=== PATIENT | male | born 1940 | race Caucasian/White ===

== ENCOUNTER 2017-07-29 11:53 | Inpatient (IN) | payer MEDICARE ==
[~2017-07-29] VITALS: Ht 170.2 cm; Wt 78.5 kg
[~2017-07-29 11:53] MED LIST: AMLO5TAB22 PO; LISI40TA PO; ZOCO40TA PO
[2017-07-29 14:00] VITALS: BP 204/100; PULSE 63; RESP 19; TEMP 97.5; O2SAT 97
[2017-07-29] MEDS ORDERED: SODIUM CHLOR 0.9% 1000 ML INJ 1,000 ML IV PRN (14:23)
[2017-07-29] MEDS ORDERED: SODIUM CHLOR 0.9% 1000 ML INJ 1,000 ML OTHER PRN ×2 (14:23)
[2017-07-29] MEDS ORDERED: GELATIN 12 MM/7 MM FOAM TOP PRN (14:30)
[2017-07-29] MEDS ORDERED: NITROGLYCERIN 0.4 MG SL 25 TABS/BTL SL PRN (14:30)
[2017-07-29] MEDS ORDERED: HEPARIN SODIUM - IV 10,000 UNITS/10 ML VIAL IV FLUSH PRN (14:30)
[2017-07-29] MEDS ORDERED: ONDANSETRON HCL 4 MG/2 ML VIAL IV PUSH PRN (14:30)
[2017-07-29] MEDS ORDERED: ALBUMIN 25% INJ 100 ML IV PRN (14:30)
[2017-07-29] MEDS ORDERED: cloNIDine HCL 0.1 MG TAB PO PRN ×2 (14:30→19:00)
[2017-07-29] MEDS ORDERED: ACETAMINOPHEN 325 MG TAB PO PRN (14:30)
[2017-07-29] MEDS ORDERED: SODIUM CHLORIDE 0.9% FLUSH 10 ML FLUSH IV FLUSH PRN ×3 (14:30→16:30)
[2017-07-29] MEDS ORDERED: diphenhydrAMINE HCL 25 MG CAP PO PRN (14:30)
--- NOTE | 2017-07-29 14:45 | HHI.HP ---
HPI Service CP Hospitalists Primary Care Physician Unknown Admission Diagnosis ESRD Chief Complaint: "need HD" Travel History International Travel<30 Days: No Contact w/Intl Traveler <30 Da: No Traveled to Known Affected Are: No History of Present Illness This is a 76-year-old male patient who has a mendes kidney status post left nephrectomy approximately 12 years ago secondary to renal cell carcinoma. Patient also has past medical history which includes hyperlipidemia, hypertension and chronic kidney disease now stage V. Patient reports that he had been doing well since his nephrectomy until September when he suddenly developed BLE edema. Patient saw his PCP for to have worsening GFR and lesion/ mass in his remaining kidney. Patient has been seen by [facility] and Dr. Benítez outpatient. Per request of nephrology patient direct admitted to the hospital due to urgent need to start hemodialysis. Patient reports he plans to follow up with [facility] for possible ablation of renal lesion August 16. Patient denies SOB, chest pain, fevers, chills, N/V/D/C. Review of Systems Constitutional: DENIES: Fatigue, Fever, Chills Respiratory: DENIES: Cough, Sputum production, Shortness of breath Cardiovascular: COMPLAINS OF: Lower Extremity Edema, DENIES: Chest pain, Palpitations, Dyspnea on Exertion Gastrointestinal: DENIES: Abdominal pain, Constipation, Diarrhea, Nausea, Vomiting Neurologic: DENIES: Headache, Localized weakness, Speech Problems Psychiatric: DENIES: Anxiety, Confusion, Depression Past Family Social History Past Medical History renal cell carcinoma with nephrectomy 2006, hyperlipidemia, hypertension and chronic kidney disease stage V Past Surgical History Nephrectomy 2006 Lumbar laminectomy Reported Medications Hydrocodone-Acetaminophen 5-325 mg Tab 1 Tab PO BID PRN Ambien (Zolpidem Tartrate) 10 Mg Tab 10 Mg PO HS PRN Doxazosin (Doxazosin Mesylate) 2 Mg Tab 8 Mg PO HS Cymbalta DR (Duloxetine HCl) 30 Mg Capdr 30 Mg PO DAILY Vitamin D3 (Cholecalciferol) 50,000 Unit Cap 50,000 Units PO 2XWEEK Lasix (Furosemide) 40 Mg Tab 40 Mg PO TID Metoprolol Tartrate 25 Mg Tab 25 Mg PO HS Metolazone 5 Mg Tab 5 Mg PO DAILY Lisinopril 10 Mg Tab 10 Mg PO BID Simvastatin 40 Mg Tab 40 Mg PO HS Allergies: Coded Allergies: No Known Allergies (Unverified Allergy, Unknown, 6/7/18) Family History Family medical history includes lung cancer and lupus Social History Denies EtOH use Tobacco use smokes cigars Denies EtOH use Physical Exam Vital Signs Vital Signs Date Time Temp Pulse Resp B/P (MAP) Pulse Ox O2 Delivery O2 Flow Rate FiO2 07/29/17 14:00 97.5 63 19 204/100 (134) 97 Physical Exam GENERAL: This is a well-nourished, well-developed patient, in no apparent distress. SKIN: No rashes, ecchymoses or lesions. Cool and dry. HEAD: Atraumatic. Normocephalic. No temporal or scalp tenderness. EYES: Extraocular motions intact. No scleral icterus. No injection or drainage. CARDIOVASCULAR: Regular rate and rhythm RESPIRATORY: Clear to auscultation. Breath sounds equal bilaterally. GASTROINTESTINAL: Abdomen soft, non-tender, nondistended. MUSCULOSKELETAL: Extremities without clubbing, cyanosis, or edema. No joint tenderness, effusion, or edema noted. No calf tenderness. Negative Homans sign bilaterally. NEUROLOGICAL: Awake and alert. No focal deficits. Motor and sensory grossly within normal limits. Five out of 5 muscle strength in all muscle groups. Normal speech. Imaging Last Impressions Catheter Placement X-Ray 07/29/17 0000 Signed Impressions: CONCLUSION: Uncomplicated PermaCath placement as above. Caprini VTE Risk Assessment Caprini VTE Risk Assessment: Mod/High Risk (score >= 2) Caprini Risk Assessment Model Point Value = 1 Point Value = 2 Point Value = 3 Point Value = 5 Age 41-60 Minor surgery BMI > 25 kg/m2 Swollen legs Varicose veins or History of unexplained or recurrent spontaneous Oral contraceptives or hormone replacement Sepsis (< 1 month) Serious lung disease, including pneumonia (< 1 month) Abnormal pulmonary function Acute myocardial infarction Congestive heart failure (< 1 month) History of inflammatory bowel disease Medical patient at bed rest Age 61-74 Arthroscopic surgery Major open surgery (> 45 min) Laparoscopic surgery (> 45 min) Malignancy Confined to bed (> 72 hours) Immobilizing plaster cast Central venous access Age >= 75 History of VTE Family history of VTE Factor V Leiden Prothrombin [id number] Lupus anticoagulant Anticardiolipin antibodies Elevated serum homocysteine Heparin-induced thrombocytopenia Other congenital or acquired thrombophilia Stroke (< 1 month) Elective arthroplasty Hip, pelvis, or leg fracture Acute spinal cord injury (< 1 month) Prophylaxis Regimen Total Risk Factor Score Risk Level Prophylaxis Regimen 0-1 Low Early ambulation 2 Moderate Order ONE of the following: *Sequential Compression Device (SCD) *Heparin 5000 units SQ BID 3-4 Higher Order ONE of the following medications: *Heparin 5000 units SQ TID *Enoxaparin/Lovenox 40 mg SQ daily (WT < 150 kg, CrCl > 30 mL/min) *Enoxaparin/Lovenox 30 mg SQ daily (WT < 150 kg, CrCl > 10-29 mL/min) *Enoxaparin/Lovenox 30 mg SQ BID (WT < 150 kg, CrCl > 30 mL/min) AND/OR *Sequential Compression Device (SCD) 5 or more Highest Order ONE of the following medications: *Heparin 5000 units SQ TID (Preferred with Epidurals) *Enoxaparin/Lovenox 40 mg SQ daily (WT < 150 kg, CrCl > 30 mL/min) *Enoxaparin/Lovenox 30 mg SQ daily (WT < 150 kg, CrCl > 10-29 mL/min) *Enoxaparin/Lovenox 30 mg SQ BID (WT < 150 kg, CrCl > 30 mL/min) AND *Sequential Compression Device (SCD) Assessment and Plan Problem List: (1) ESRD needing dialysis ICD Codes: N18.6 - End stage renal disease; Z99.2 - Dependence on renal dialysis Plan: This is a 76-year-old male patient who has a mendes kidney status post left nephrectomy approximately 12 years ago secondary to renal cell carcinoma. Patient also has past medical history which includes hyperlipidemia , hypertension and chronic kidney disease now stage V. Patient reports that he had been doing well since his nephrectomy until September when he suddenly developed BLE edema. Patient saw his PCP for to have worsening GFR and lesion/ mass in his remaining kidney. Patient has been seen by [facility] and Dr. Benítez outpatient. Per request of nephrology patient direct admitted to the hospital due to urgent need to start hemodialysis. Patient reports he plans to follow up with [facility] for possible ablation of renal lesion August 16. Consultation placed to interventional radiology for permacath placement Consultation placed to nephrology Hemodialysis per nephrology renal mass/lesion, Patient reports he plans to follow up with [facility] for possible ablation of renal lesion August 16. Continue patient's home metolazone 5 mg daily Nephrology has ordered IV Lasix as well (2) HTN (hypertension) ICD Codes: I10 - Essential (primary) hypertension Plan: Continue patient's home Doxazosin 4 mg 2 tablets at night, lisinopril 10 mg p.o. twice daily, metoprolol 25 mg 1 tablet nightly Add clonidine as needed for hypertension (3) Hyperlipidemia ICD Codes: E78.5 - Hyperlipidemia, unspecified Plan: Continue patient's home simvastatin 40 mg 1 tablet daily Assessment and Plan Patient examined. Assessment and plan formulated with Adali Oliver PA-C. I agree with the above. Physician Certification 2 Midnight Certification Type: Admission for Inpatient Services Order for Inpatient Services The services are ordered in accordance with Medicare regulations or non- Medicare payer requirements, as applicable. In the case of services not specified as inpatient-only, they are appropriately provided as inpatient services in accordance with the 2-midnight benchmark. Estimated LOS (days): 3 days is the estimated time the patient will need to remain in the hospital, assuming treatment plan goals are met and no additional complications. Post-Hospital Plan: Not yet determined Adali Oliver Jul 29, 2017 14:45 Ken Parra DO Aug 01, 2017 22:59
[2017-07-29] MEDS ORDERED: DOXA1TAB35 PO (14:48)
[2017-07-29] MEDS ORDERED: HYDR-3516 PO (14:48)
[2017-07-29] MEDS ORDERED: METO5TAB3 PO (14:48)
[2017-07-29] MEDS ORDERED: FURO1TAB60 PO (14:48)
[2017-07-29] MEDS ORDERED: AMBI10TA PO (14:48)
[2017-07-29] MEDS ORDERED: CYMB30CA PO (14:48)
[2017-07-29] MEDS ORDERED: METO25TA3 PO (14:48)
[2017-07-29] MEDS ORDERED: LISI10TA3 PO (14:48)
[2017-07-29] MEDS ORDERED: SIMV40TA PO (14:48)
[2017-07-29] MEDS ORDERED: CHOL1CAP34 PO (14:48)
[2017-07-29 14:50] LABS: AUTOMATED NEUTROPHIL # 4.2 TH/MM3 (1.8-7.7); BASOPHIL # 0.1 TH/MM3 (0-0.2); BASOPHIL % 1.2 % (0.0-2.0); EOSINOPHIL # 0.1 TH/MM3 (0-0.4); EOSINOPHIL % 1.6 % (0.0-4.0); LYMPH % 23.8 % (9.0-44.0); LYMPHOCYTE # 1.5 TH/MM3 (1.0-4.8); MEAN CELL VOLUME 90.4 FL (80.0-100.0); MEAN CORPUSCULAR HEMOGLOBIN 31.1 PG (27.0-34.0); MEAN CORPUSCULAR HGB CONC 34.4 % (32.0-36.0); MEAN PLATELET VOLUME 7.1 FL (7.0-11.0); MONO % 7.9 % (0.0-8.0); MONOCYTE # 0.5 TH/MM3 (0-0.9); NEUT % 65.5 % (16.0-70.0); PLATELET COUNT 230 TH/MM3 (150-450); RED BLOOD COUNT 3.54 MIL/MM3 (4.50-5.90); WHITE BLOOD COUNT 6.4 TH/MM3 (4.0-11.0)
--- NOTE | 2017-07-29 14:55 | PD.CONS ---
HPI Consult Requested By Reason for Consult CKD stage V with need to initiate dialysis for uremia and fluid overload. Primary Care Physician Unknown History of Present Illness This patient is a very pleasant 76-year-old male who is being followed by a another volunteer services director i.e. Dr. Camilo in [place] previously. Apparently the patient has a history of a previous renal cell carcinoma with a left nephrectomy back in 2010. Subsequently developed CKD stage III and was relatively stable until last year when he developed increasing edema and worsening azotemia. By history he had a protein creatinine ratio of about 14 g. Renal biopsy was deferred because of the presence of a solitary kidney. It appears that he did receive therapy with prednisone empirically with no improvement. Subsequently was seen at the [facility] in [place] for a second opinion. According to the patient renal ultrasound revealed a suspicious right sided neoplasia which was also present and a subsequent MRI scan. Lesion said to be 2 cm. Patient is scheduled to follow-up with an oncologist at the [facility] August 16. According to the patient consultation will be undertaken between oncology and radiology as well as nephrology regarding how to proceed. Cryotherapy versus nephrectomy. In the interim the patient has been developing increasing generalized weakness, anorexia, fatigue, pickups and persistent worsening generalized edema. Noted to have had a serum creatinine level of 4.27 with an estimated GFR of June 25, 2017. Subsequent labs indicate a creatinine of 4.57 with an estimated GFR of July 16, 2017. The patient was seen in my office on July 27, 2017. According to the patient [facility] was recommending the initiation of dialysis during his last visit at their institution but the patient refused wanting to proceed locally. He has moved to this area and presented to establish with my practice. After discussion in the office we discussed indications for, alternatives to as well as risks associated with dialysis and the patient wishes to proceed with hemodialysis and hemodialysis PermCath placement. Review of Systems Constitutional: COMPLAINS OF: Fatigue, Weight gain, Change in appetite, DENIES : Diaphoretic episodes, Fever, Weight loss, Chills, Dizziness, Night Sweats Respiratory: DENIES: Apneas, Cough, Snoring, Wheezing, Hemoptysis, Sputum production, Shortness of breath Cardiovascular: COMPLAINS OF: Lower Extremity Edema, DENIES: Chest pain, Palpitations, Syncope, Dyspnea on Exertion, PND, Orthopnea, Claudication Gastrointestinal: COMPLAINS OF: Nausea, DENIES: Abdominal pain, Black stools, Bloody stools, Constipation, Diarrhea, Vomiting, Difficulty Swallowing, Anorexia Past Family Social History Allergies: Coded Allergies: No Known Allergies (Unverified Allergy, Unknown, 07/29/17) Past Medical History Solitary kidney. Lesion in remaining right kidney suspicious for recurrence of renal cell carcinoma. Options being discussed at the [facility]. Hypertension. Nephrotic range proteinuria. Associated with generalized edema. Previously treated with steroids with no improvement. Biopsy deferred secondary to solitary kidney. CKD stage V. Past Surgical History History of left nephrectomy 2010 for renal cell carcinoma. Reported Medications Reported Meds & Active Scripts Active Reported Amlodipine Besylate 5 mg (Amlodipine Besylate) 5 Mg Tab 1 Tab PO DAILY Prinivil 40 mg (Lisinopril) 40 Mg Tab 1 Tab PO DAILY Zocor 40 mg (Simvastatin) 40 Mg Tab 1 Tab PO HS Active Ordered Medications Current Medications Sodium Chloride 1,000 ml @ 0 mls/hr Q0M PRN OTHER For Prime & Rinse Back; Start 07/29/17 at 14:23 Heparin Sodium (Porcine) (Heparin Inj) 8,000 units UNSCH PRN IV FLUSH WITH DIALYSIS; Start 07/29/17 at 14:30 Sodium Chloride 1,000 ml @ 200 mls/hr Q5H PRN IV WITH DIALYSIS; Start 07/29/17 at 14:23 Sodium Chloride 1,000 ml @ 0 mls/hr Q0M PRN OTHER WITH DIALYSIS; Start 07/29/17 at 14:23 Albumin Human 100 ml @ 60 mls/hr UNSCH PRN IV WITH DIALYSIS; Start 07/29/17 at 14:30 Sodium Chloride (NS Flush) 5 ml UNSCH PRN IV FLUSH WITH DIALYSIS; Start at 14:30 Heparin Sodium (Porcine) (Heparin Inj) UNSCH PRN .XX WITH DIALYSIS; Start 07/29 at 14:30 Gentamicin Sulfate (Gentamicin Inj) 20 mg UNSCH PRN OTHER WITH DIALYSIS; Start 07/29/17 at 14:30 Ondansetron HCl (Zofran Inj) 4 mg UNSCH PRN IV PUSH WITH DIALYSIS; Start at 14:30 Acetaminophen (Tylenol) 650 mg UNSCH PRN PO for headach, pain, temp > 101F; Start 07/29/17 at 14:30 Diphenhydramine HCl (Benadryl) 25 mg UNSCH PRN PO for hives/itching/anaphylaxis ; Start 07/29/17 at 14:30 Nitroglycerin (Nitrostat Sl) 0.4 mg UNSCH PRN SL CHEST PAIN; Start 07/29/17 at 14:30 Clonidine (Catapres) 0.1 mg UNSCH PRN PO for BP > 180/100 X 2 readings; Start 07/29/17 at 14:30 Gelatin (Gelfoam 12 Mm/7 Mm Top) 1 foam UNSCH PRN TOP SEE LABEL COMMENTS; Start 07/29/17 at 14:30 Sodium Chloride (NS Flush) 5 ml UNSCH PRN IV FLUSH WITH DIALYSIS; Start at 14:30 Family History Mother is alive and well at 94. Father . Etiology? Social History History of occasional tobacco use. No history of illicit drug use. Physical Exam Vital Signs Vital Signs Date Time Temp Pulse Resp B/P (MAP) Pulse Ox O2 Delivery O2 Flow Rate FiO2 07/29/17 14:00 97.5 63 19 204/100 (134) 97 Physical Exam GENERAL: Pleasant male who appears somewhat younger than his stated age. SKIN: Warm and dry. HEAD: Normocephalic. EYES: No scleral icterus. No injection or drainage. NECK: Supple, trachea midline. No JVD or lymphadenopathy. CARDIOVASCULAR: Regular rate and rhythm without murmurs, gallops, or rubs. RESPIRATORY: Breath sounds equal bilaterally. No accessory muscle use. Diminished air entry in the lung bases. GASTROINTESTINAL: Abdomen soft, non-tender, nondistended. MUSCULOSKELETAL: No cyanosis, 2+ pitting edema of the feet, legs, thighs, hips. 1-2+ pitting edema of the hands, forearms. 1+ pitting edema lower arms. BACK: Nontender without obvious deformity. No CVA tenderness. Laboratory Laboratory Tests Test 07/29/17 14:30 Assessment and Plan Problem List: (1) CKD (chronic kidney disease) stage 5, GFR less than 15 ml/min ICD Codes: N18.5 - Chronic kidney disease, stage 5 Status: Chronic Plan: Patient now presents with refractory edema as well as severe azotemia with uremic symptomatology. Hemodialysis will be initiated as also recommended by the [facility] in [place] to improve his uremic symptoms and volume status. Patient has no dialysis access in place at this time. Consultation will be placed to radiology for placement of a hemodialysis PermCath. Patient will subsequently be further counseled regarding dialytic options available to him if chronic dialysis required. Patient has been counseled regarding indications for, alternatives to and risks associated with dialysis and wishes to proceed. Uncertain of potential for recovery of renal function. Nephrotic syndrome can be associated with potentially reversible severe azotemia in this case superimposed on chronic kidney disease. One wonders if the patient's nephrotic syndrome may be related to recurrence of his renal cell cancer if confirmed. Successful treatment of same may improve his nephrotic syndrome if this is the case but remains to be determined as discussed with the patient. Medication should be adjusted for the patient's estimated GFR which is below 15 when indicated. Avoid gadolinium. (2) Nephrotic syndrome ICD Codes: N04.9 - Nephrotic syndrome with unspecified morphologic changes Status: Chronic Plan: According to the patient [facility] may be considering a renal biopsy at the time of tumor ablation if possible. Definitive decision regarding management however of his renal lesion not yet confirmed. (3) Anasarca associated with disorder of kidney ICD Codes: N04.9 - Nephrotic syndrome with unspecified morphologic changes Plan: Fluid removal as tolerated with dialysis. Also add furosemide (4) Renal neoplasm ICD Codes: D49.519 - Neoplasm of unspecified behavior of unspecified kidney Status: Chronic Plan: Management per [facility]. 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
[2017-07-29] MEDS ORDERED: VANCOMYCIN INJ 1,000 MG in SODIUM CHLOR 0.9% 250 ML INJ 250 ML IV SCH (15:00)
[2017-07-29] MEDS ORDERED: ceFAZolin 2 GM PREMIX 50 ML IV SCH (15:00)
[2017-07-29] MEDS ORDERED: NON-FORMULARY DRUG (Cholecalciferol (Vitamin D3) 50,000 UNITS) PO SCH (15:30)
[2017-07-29] MEDS ORDERED: ZOLPIDEM TARTRATE 10 MG TAB PO PRN (15:30)
[2017-07-29] MEDS ORDERED: MIDAZOLAM HCL 2 MG/2 ML VIAL ONE (15:40)
[2017-07-29] MEDS ORDERED: LIDOCAINE 1%/EPINEPHrine 1:100,000 SOLN 20 ML VIAL ONE (15:46)
[2017-07-29] MEDS ORDERED: HEPARIN SODIUM - IV 2,000 UNITS/2 ML VIAL IV FLUSH PRN (16:30)
--- NOTE | 2017-07-29 17:04 | RADRPT ---
EXAM DATE: 07/29/2017 4:29 PM EDT AGE/SEX: 76 years / Male INDICATIONS: Patient with a history of renal disease, needs dialysis. CLINICAL DATA: This is the patient's initial encounter. Patient reports that signs and symptoms have been present for 1 day and indicates a pain score of 0/10. MEDICAL/SURGICAL HISTORY: . Solitary kidneyLesion in remaining right kidney suspicious for recu rrence of renal cell carcinoma. HTN Nephrotic range proteinuria CKD stage V . Left Nephrectomy COMPARISON: No prior exams available for comparison. FLUORO TIME (min): 0.24 IMAGE SERIES: 1 ACCESS SITE: SEDATION TIME (min): 30 MEDICATION(S): 3mg midazolam (Versed) IV 150mcg fentanyl (Sublimaze) IV Vancomycin within 2 hrs of procedure, Ancef (or alternative) within 1 hr of procedure. DEVICE(S): 23CM ROSE PERMCATH . . PROCEDURE: 1. Ultrasound-guided venipuncture. 2. PermaCath placement. 3. Conscious sedation with continuous EKG and oximetry monitoring. The risks, benefits and alternatives to the procedure were explained and verbal and written consent w as obtained. The site was prepped in sterile fashion. Full sterile technique was used, including ca p, mask, sterile gloves and gown and a large sterile sheet. Hand hygiene and 2% chlorhexidine and/or betadine/alcohol prep was utilized per protocol for cutaneous antisepsis. Sterile gel and sterile p robe cover were utilized for ultrasound guidance. The skin and subcutaneous tissues were infiltrated with local anesthetic solution. With ultrasound and fluoroscopic guidance a dermatotomy was created over the prescribed vein. A micr opuncture set was used to access the targeted vein and serial dilatation was performed to accept the prescribed length catheter. A subcutaneous tunnel was created in a retrograde fashion the catheter w as pulled through the tunnel. The catheter was flushed and assembled and locked with heparin. The c atheter was sutured in place. Conscious sedation was performed with the prescribed dosages and duration as above in the presence of an independent trained radiology nurse to assist in the monitoring of the patient. EKG and oximetry remained stable throughout the procedure. The patient tolerated the procedure well and there were n o complications. The patient was sent to post anesthesia recovery in stable condition. CONCLUSION: Uncomplicated PermaCath placement as above. Electronically signed by: Shaheed Nolasco MD 07/29/2017 5:02 PM EDT
[2017-07-29] MEDS: GENTAMICIN SULFATE 20 MG/2 ML VIAL OTHER PRN (18:04)
[2017-07-29] MEDS: HEPARIN SODIUM - IV 10,000 UNITS/10 ML VIAL PRN (18:04)
[2017-07-29] MEDS ORDERED: hydrALAZINE HCL 10 MG TAB PO PRN (19:00)
[2017-07-29 20:00] VITALS: BP 170/86; PULSE 68; RESP 16; TEMP 98; O2SAT 97
[2017-07-29] MEDS ORDERED: NIFEdipine 60 MG SUSTAINED RELEASE TAB PO SCH (21:00)
[2017-07-29 21:12] LABS: ALBUMIN 1.3 GM/DL (3.4-5.0); BICARBONATE 22.4 MEQ/L (21.0-32.0); CREATININE 3.78 MG/DL (0.60-1.30); PHOSPHORUS 5.2 MG/DL (2.5-4.9)
[2017-07-29 21:22] LABS: CALCIUM 7.4 MG/DL (8.5-10.1)
[2017-07-29] MEDS: PRAVASTATIN SOD 80 MG TAB PO SCH (21:54)
[2017-07-29] MEDS: ACETAMINOPHEN/HYDROcodone 325 MG/5 MG TAB PO PRN (21:54)
[2017-07-29] MEDS: DOXAZOSIN MESYLATE 4 MG TAB PO SCH (21:54)
[2017-07-29] MEDS: METOPROLOL TARTRATE 25 MG TAB PO SCH (21:54)
[2017-07-29] MEDS: LISINOPRIL 10 MG TAB PO SCH (21:54)
[2017-07-29] MEDS ORDERED: CALCIUM CARBONATE 500 MG CHEWABLE TAB PO SCH (22:00)
[2017-07-29] MEDS: ZOLPIDEM TARTRATE 10 MG TAB PO PRN (23:01)
[2017-07-30] VITALS (8 sets, daily range): BP systolic 105–156; BP diastolic 58–90; PULSE 55–73; RESP 16–20; TEMP 97.4–98.2; O2SAT 92–97
[2017-07-30 06:54] LABS: CALCIUM 7.4 MG/DL (8.5-10.1); CREATININE 4.32 MG/DL (0.60-1.30)
[2017-07-30 07:20] LABS: CALCIUM-PROTEIN CORRECTED 8.8 MG/DL (8.5-10.1); TOTAL PROTEIN 4.6 GM/DL (6.4-8.2)
--- NOTE | 2017-07-30 12:37 | HHI.PR ---
Subjective Remarks Patient offers no new concerns edema with some improvement asking to go home Objective Vitals Vital Signs Date Time Temp Pulse Resp B/P (MAP) Pulse Ox O2 Delivery O2 Flow Rate FiO2 07/30/17 08:06 Room Air 07/30/17 08:00 97.5 55 20 149/67 (94) 97 07/30/17 04:00 97.9 64 20 105/58 (74) 93 07/30/17 00:00 98.2 62 20 156/77 (103) 92 07/29/17 22:00 Room Air 07/29/17 20:00 98.0 68 16 170/86 (114) 97 07/29/17 14:00 97.5 63 19 204/100 (134) 97 Result Diagram: 07/29/17 1430 07/30/17 0530 Other Results Laboratory Tests Test 07/29/17 14:30 07/29/17 20:42 07/30/17 05:30 White Blood Count 6.4 TH/MM3 Red Blood Count 3.54 MIL/MM3 Hemoglobin 11.0 GM/DL Hematocrit 32.0 % Mean Corpuscular Volume 90.4 FL Mean Corpuscular Hemoglobin 31.1 PG Mean Corpuscular Hemoglobin Concent 34.4 % Red Cell Distribution Width 15.0 % Platelet Count 230 TH/MM3 Mean Platelet Volume 7.1 FL Neutrophils (%) (Auto) 65.5 % Lymphocytes (%) (Auto) 23.8 % Monocytes (%) (Auto) 7.9 % Eosinophils (%) (Auto) 1.6 % Basophils (%) (Auto) 1.2 % Neutrophils # (Auto) 4.2 TH/MM3 Lymphocytes # (Auto) 1.5 TH/MM3 Monocytes # (Auto) 0.5 TH/MM3 Eosinophils # (Auto) 0.1 TH/MM3 Basophils # (Auto) 0.1 TH/MM3 CBC Comment DIFF FINAL Differential Comment Prothrombin Time 10.0 SEC Prothromb Time International Ratio 1.0 RATIO Blood Urea Nitrogen 57 MG/DL 58 MG/DL Creatinine 3.78 MG/DL 4.32 MG/DL Random Glucose 102 MG/DL 85 MG/DL Albumin 1.3 GM/DL Calcium Level 7.4 MG/DL 7.4 MG/DL Phosphorus Level 5.2 MG/DL Sodium Level 141 MEQ/L 141 MEQ/L Potassium Level 3.7 MEQ/L 4.0 MEQ/L Chloride Level 104 MEQ/L 106 MEQ/L Carbon Dioxide Level 22.4 MEQ/L 23.0 MEQ/L Anion Gap 15 MEQ/L 12 MEQ/L Estimat Glomerular Filtration Rate 16 ML/MIN 13 ML/MIN Hepatitis A IgM Antibody NONREACTIVE Hepatitis B Surface Antigen NONREACTIVE Hepatitis B Core IgM Antibody NONREACTIVE Hepatitis C IgG Antibody NONREACTIVE Total Protein 4.6 GM/DL Protein Corrected Calcium 8.8 MG/DL 25-Hydroxy Vitamin D Total 6.6 ng/ML Parathyroid Hormone (Intact) 280.3 PG/ML Imaging Last Impressions Catheter Placement X-Ray 07/29/17 0000 Signed Impressions: CONCLUSION: Uncomplicated PermaCath placement as above. Objective Remarks GENERAL: This is a well-nourished, well-developed patient, in no apparent distress. CARDIOVASCULAR: Regular rate and rhythm RESPIRATORY: Clear to auscultation. Breath sounds equal bilaterally. GASTROINTESTINAL: Abdomen soft, non-tender, nondistended. Normal active bowel sounds MUSCULOSKELETAL: Extremities without clubbing, cyanosis, or edema. NEURO: Alert & Oriented x4 to person, place, time, situation. Moves all ext x4 A/P Problem List: (1) ESRD needing dialysis ICD Codes: N18.6 - End stage renal disease; Z99.2 - Dependence on renal dialysis Plan: This is a 76-year-old male patient who has a mendes kidney status post left nephrectomy approximately 12 years ago secondary to renal cell carcinoma. Patient also has past medical history which includes hyperlipidemia , hypertension and chronic kidney disease now stage V. Patient reports that he had been doing well since his nephrectomy until September when he suddenly developed BLE edema. Patient saw his PCP for to have worsening GFR and lesion/ mass in his remaining kidney. Patient has been seen by [facility] and Dr. Benítez outpatient. Per request of nephrology patient direct admitted to the hospital due to urgent need to start hemodialysis. Patient reports he plans to follow up with [facility] for possible ablation of renal lesion August 16. S/P permacath placement 07/29/17 by IR Consultation placed to nephrology, patient sees Dr. Benítez outpatient Hemodialysis per nephrology renal mass/lesion, Patient reports he plans to follow up with [facility] for possible ablation of renal lesion August 16. Continue patient's home metolazone 5 mg daily Nephrology has ordered IV Lasix as well Patient having second HD today further management per nephrology (2) HTN (hypertension) ICD Codes: I10 - Essential (primary) hypertension Plan: BP improving Continue patient's home Doxazosin 4 mg 2 tablets at night, lisinopril 10 mg p.o. twice daily, metoprolol 25 mg 1 tablet nightly Add clonidine as needed for hypertension (3) Hyperlipidemia ICD Codes: E78.5 - Hyperlipidemia, unspecified Plan: Continue patient's home simvastatin 40 mg 1 tablet daily Assessment and Plan Patient examined. Assessment and plan formulated with Adali Oliver PA-C. I agree with the above. Adali Oliver Jul 30, 2017 12:37 Ken Parra DO Aug 01, 2017 22:58
[2017-07-30] MEDS: LISINOPRIL 10 MG TAB PO SCH ×2 (13:11→20:32)
[2017-07-30] MEDS: FUROSEMIDE 40 MG/4 ML VIAL IV PUSH SCH ×2 (13:11→18:30)
[2017-07-30] MEDS: DULoxetine HCl DR 30 MG CAP PO SCH (13:11)
[2017-07-30] MEDS: METOLAZONE 5 MG TAB PO SCH (13:12)
--- NOTE | 2017-07-30 14:50 | HHI.NPPN ---
Subjective History of Present Illness This patient is a very pleasant 76-year-old male who is being followed by a another director of environmental services i.e. Dr. Camilo in [place] previously. Apparently the patient has a history of a previous renal cell carcinoma with a left nephrectomy back in 2010. Subsequently developed CKD stage III and was relatively stable until last year when he developed increasing edema and worsening azotemia. By history he had a protein creatinine ratio of about 14 g. Renal biopsy was deferred because of the presence of a solitary kidney. It appears that he did receive therapy with prednisone empirically with no improvement. Subsequently was seen at the [facility] in [place] for a second opinion. According to the patient renal ultrasound revealed a suspicious right sided neoplasia which was also present and a subsequent MRI scan. Lesion said to be 2 cm. Patient is scheduled to follow-up with an oncologist at the [facility] August 16. According to the patient consultation will be undertaken between oncology and radiology as well as nephrology regarding how to proceed. Cryotherapy versus nephrectomy. In the interim the patient has been developing increasing generalized weakness, anorexia, fatigue, pickups and persistent worsening generalized edema. Noted to have had a serum creatinine level of 4.27 with an estimated GFR of June 25, 2017. Subsequent labs indicate a creatinine of 4.57 with an estimated GFR of July 16, 2017. The patient was seen in my office on July 27, 2017. According to the patient [facility] was recommending the initiation of dialysis during his last visit at their institution but the patient refused wanting to proceed locally. He has moved to this area and presented to establish with my practice. Interval History Patient indicating that he is feeling clinically improved today. Objective Data Data Vital Signs Date Time Temp Pulse Resp B/P (MAP) Pulse Ox O2 Delivery O2 Flow Rate FiO2 07/30/17 13:44 96 21 07/30/17 13:03 97.4 73 20 155/73 (100) 96 07/30/17 08:06 Room Air 07/30/17 08:00 97.5 55 20 149/67 (94) 97 07/30/17 04:00 97.9 64 20 105/58 (74) 93 07/30/17 00:00 98.2 62 20 156/77 (103) 92 07/29/17 22:00 Room Air 07/29/17 20:00 98.0 68 16 170/86 (114) 97 -: 07/29/17 1430 07/30/17 0530 Imaging Last 48 hours Impressions Catheter Placement X-Ray 07/29/17 0000 Signed Impressions: CONCLUSION: Uncomplicated PermaCath placement as above. Physical Exam General Appearance: No Acute Distress, Comfortable Eyes Eye Exam: Sclera White Pulmonary Resp Exam: Clear Bilaterally, Breath Sounds Equal, No Distress, Decreased Bases Cardiology CV Exam: Regular, Normal Sinus Rhythm Gastrointestinal/Abdomen GI Exam: Soft, Non-Tender Integumentary Skin Exam: Normal Turgor Extremeties Extremities Exam: Moderate Edema (2+ pitting edema involving his hands and forearms.2-3+ pitting edema of the feet extending to the knees bilaterally. 1+ pitting edema thighs.) Assessment/Plan Discussed Condition With: Patient, Spouse Problem List: (1) CKD (chronic kidney disease) stage 5, GFR less than 15 ml/min ICD Codes: N18.5 - Chronic kidney disease, stage 5 Status: Chronic Plan: Patient has tolerated 2 dialysis sessions however he still has significant edema involving upper and lower extremities. We will proceed with a third dialysis session tomorrow prior to discharge. Subsequently patient will start hemodialysis as an outpatient Wednesday and Wednesday. Patient advised that he needs to be at the dialysis facility at 5: 30 in the morning and he is agreeable. If needed extra dialysis sessions can be done as an outpatient to improve his volume status as discussed with him. Patient was advised of the need to keep his hemodialysis PermCath dry at all times. To contact me should he develop fever or chills which may be indicative of a line infection. Uncertain of potential for recovery of renal function. Nephrotic syndrome can be associated with potentially reversible severe azotemia in this case superimposed on chronic kidney disease. One wonders if the patient's nephrotic syndrome may be related to recurrence of his renal cell cancer if confirmed. Successful treatment of same may improve his nephrotic syndrome if this is the case but remains to be determined as discussed with the patient. Medication should be adjusted for the patient's estimated GFR which is below 15 when indicated. Avoid gadolinium. (2) Nephrotic syndrome ICD Codes: N04.9 - Nephrotic syndrome with unspecified morphologic changes Status: Chronic Plan: According to the patient [facility] may be considering a renal biopsy at the time of tumor ablation if possible. Definitive decision regarding management however of his renal lesion not yet confirmed. (3) Anasarca associated with disorder of kidney ICD Codes: N04.9 - Nephrotic syndrome with unspecified morphologic changes Plan: Fluid removal as tolerated with dialysis. Also add furosemide (4) Renal neoplasm ICD Codes: D49.519 - Neoplasm of unspecified behavior of unspecified kidney Status: Chronic Plan: Management per [facility]. 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
[2017-07-30] MEDS: METOPROLOL TARTRATE 25 MG TAB PO SCH (20:32)
[2017-07-30] MEDS: PRAVASTATIN SOD 80 MG TAB PO SCH (20:32)
[2017-07-30] MEDS: ZOLPIDEM TARTRATE 10 MG TAB PO PRN (20:32)
[2017-07-30] MEDS: DOXAZOSIN MESYLATE 4 MG TAB PO SCH (20:32)
[2017-07-30] MEDS: ACETAMINOPHEN/HYDROcodone 325 MG/5 MG TAB PO PRN (20:38)
[2017-07-31] VITALS: BP 112/54; PULSE 61; RESP 16; TEMP 98; O2SAT 93
[2017-07-31 04:00] VITALS: BP 129/71; PULSE 68; RESP 16; TEMP 98; O2SAT 93
[2017-07-31 08:00] VITALS: BP 150/70; PULSE 52; RESP 22; TEMP 97.6; O2SAT 96
[2017-07-31 08:30] LABS: BICARBONATE 24.2 MEQ/L (21.0-32.0); CALCIUM 7.2 MG/DL (8.5-10.1); CREATININE 3.83 MG/DL (0.60-1.30)
[2017-07-31 08:52] LABS: CALCIUM-PROTEIN CORRECTED 8.3 MG/DL (8.5-10.1); TOTAL PROTEIN 5.1 GM/DL (6.4-8.2)
[2017-07-31] MEDS ORDERED: VITAMIN B CMPLX/VITC/FOLIC AC CAP PO SCH (09:00)
[2017-07-31 10:02] VITALS: O2SAT 96
--- NOTE | 2017-07-31 10:02 | HHI.DS ---
Discharge Summary Admission Date Jul 29, 2017 at 12:57 Discharge Date: Jul 31, 2017 Admitting Diagnosis ESRD (1) ESRD needing dialysis Diagnosis: Principal ICD Codes: N18.6 - End stage renal disease; Z99.2 - Dependence on renal dialysis (2) HTN (hypertension) Diagnosis: Secondary ICD Codes: I10 - Essential (primary) hypertension (3) Hyperlipidemia Diagnosis: Secondary ICD Codes: E78.5 - Hyperlipidemia, unspecified Consultants Dr. Benítez Procedures Permacath placement 07/29/17 Brief History This is a 76-year-old male patient who has a mendes kidney status post left nephrectomy approximately 12 years ago secondary to renal cell carcinoma. Patient also has past medical history which includes hyperlipidemia, hypertension and chronic kidney disease now stage V. Patient reports that he had been doing well since his nephrectomy until September when he suddenly developed BLE edema. Patient saw his PCP for to have worsening GFR and lesion/ mass in his remaining kidney. Patient has been seen by [facility] and Dr. Benítez outpatient. Per request of nephrology patient direct admitted to the hospital due to urgent need to start hemodialysis. Patient reports he plans to follow up with [facility] for possible ablation of renal lesion August 16. Patient denies SOB, chest pain, fevers, chills, N/V/D/C. CBC/BMP: 07/29/17 1430 07/31/17 0700 Significant Findings Laboratory Tests Test 07/29/17 14:30 07/29/17 20:42 07/30/17 05:30 07/31/17 07:00 Red Blood Count 3.54 MIL/MM3 (4.50-5.90) Hemoglobin 11.0 GM/DL (13.0-17.0) Hematocrit 32.0 % (39.0-51.0) Blood Urea Nitrogen 57 MG/DL (-18) 58 MG/DL (-18) 41 MG/DL (-18) Creatinine 3.78 MG/DL (0.60-1.30) 4.32 MG/DL (0.60-1.30) 3.83 MG/DL (0.60-1.30) Albumin 1.3 GM/DL (3.4-5.0) Calcium Level 7.4 MG/DL (8.5-10.1) 7.4 MG/DL (8.5-10.1) 7.2 MG/DL (8.5-10.1) Phosphorus Level 5.2 MG/DL (2.5-4.9) Estimat Glomerular Filtration Rate 16 ML/MIN (>89) 13 ML/MIN (>89) 16 ML/MIN (>89) Total Protein 4.6 GM/DL (6.4-8.2) 5.1 GM/DL (6.4-8.2) 25-Hydroxy Vitamin D Total 6.6 ng/ML (30-100) Parathyroid Hormone (Intact) 280.3 PG/ML (12.4-76.8) Potassium Level 5.3 MEQ/L (3.5-5.1) Protein Corrected Calcium 8.3 MG/DL (8.5-10.1) Imaging Last Impressions Catheter Placement X-Ray 07/29/17 0000 Signed Impressions: CONCLUSION: Uncomplicated PermaCath placement as above. PE at Discharge GENERAL: This is a well-nourished, well-developed patient, in no apparent distress. CARDIOVASCULAR: Regular rate and rhythm RESPIRATORY: Clear to auscultation. Breath sounds equal bilaterally. GASTROINTESTINAL: Abdomen soft, non-tender, nondistended. Normal active bowel sounds MUSCULOSKELETAL: Extremities without clubbing, cyanosis, or edema. NEURO: Alert & Oriented x4 to person, place, time, situation. Moves all ext x4 Hospital Course ESRD needing dialysis This is a 76-year-old male patient who has a mendes kidney status post left nephrectomy approximately 12 years ago secondary to renal cell carcinoma. Patient also has past medical history which includes hyperlipidemia, hypertension and chronic kidney disease now stage V. Patient reports that he had been doing well since his nephrectomy until September when he suddenly developed BLE edema. Patient saw his PCP for to have worsening GFR and lesion/ mass in his remaining kidney. Patient has been seen by [facility] and Dr. Benítez outpatient. Per request of nephrology patient direct admitted to the hospital due to urgent need to start hemodialysis. Patient reports he plans to follow up with [facility] for possible ablation of renal lesion August 16. S/P permacath placement 07/29/17 by IR Consultation placed to nephrology, patient sees Dr. Benítez outpatient Hemodialysis per nephrology renal mass/lesion, Patient reports he plans to follow up with [facility] for possible ablation of renal lesion August 16. Continue patient's home metolazone 5 mg daily Nephrology has ordered IV Lasix as well Patient having third HD today- plan to DC after after dialysis further management per nephrology HTN (hypertension) BP improving Continue patient's home Doxazosin 4 mg 2 tablets at night, lisinopril 10 mg p.o. twice daily, metoprolol 25 mg 1 tablet nightly Add clonidine as needed for hypertension Hyperlipidemia Continue patient's home simvastatin 40 mg 1 tablet daily Pt Condition on Discharge: Stable Discharge Disposition: Discharge Home Discharge Instructions DIET: Follow Instructions for: Renal Failure Diet Activities you can perform: Regular-No Restrictions Follow up Referrals: Nephrology - [address] Benítez PCP Follow-up - [address] Arana Continued Medications: Cholecalciferol (Vitamin D3) 50,000 Unit Cap 19788 UNITS PO 2XWEEK for Nutritional Supplement, #30 CAP 0 Refills Doxazosin (Doxazosin) 2 Mg Tab 8 MG PO HS, #60 TAB [address] (Cymbalta DR) 30 Mg Capdr 30 MG PO DAILY, #30 CAP 0 Refills Furosemide (Lasix) 40 Mg Tab 40 MG PO TID, #30 TAB 0 Refills Hydrocodone-Acetaminophen (Hydrocodone-Acetaminophen) 5-325 mg Tab 1 TAB PO BID PRN for PAIN, TAB 0 Refills Lisinopril (Lisinopril) 10 Mg Tab 10 MG PO BID, #30 TAB 0 Refills Metolazone (Metolazone) 5 Mg Tab 5 MG PO DAILY, #30 TAB 0 Refills Metoprolol Tartrate (Metoprolol Tartrate) 25 Mg Tab 25 MG PO HS, #30 TAB 0 Refills Simvastatin (Simvastatin) 40 Mg Tab 40 MG PO HS for Cholesterol Management, #30 TAB 0 Refills Zolpidem (Ambien) 10 Mg Tab 10 MG PO HS PRN for INSOMNIA, TAB 0 Refills Additional Information Patient examined. Assessment and plan formulated with Adali Oliver PA-C. I agree with the above. Adali Oliver Jul 31, 2017 10:02 Ken Parra DO Aug 01, 2017 22:59
--- NOTE | 2017-07-31 10:03 | HHI.DCPOC ---
Discharge Care Plan Diagnosis: (1) ESRD needing dialysis (2) Solitary right kidney (3) Renal neoplasm Goals to Promote Your Health * To prevent worsening of your condition and complications * To maintain your health at the optimal level Directions to Meet Your Goals Take your medications as prescribed Follow your dietary instruction Follow activity as directed Keep your appointments as scheduled Take your immunizations and boosters as scheduled If your symptoms worsen call your PCP, if no PCP go to Urgent Care Center or Emergency Room Smoking is Dangerous to Your Health. Avoid second hand smoke Call the 24-hour hour crisis hotline for domestic abuse at Adali Oliver Jul 31, 2017 10:03 Ken Parra DO Jul 31, 2017 14:20
[2017-07-31] MEDS: FUROSEMIDE 40 MG/4 ML VIAL IV PUSH SCH ×2 (10:19→17:46)
[2017-07-31] MEDS: DULoxetine HCl DR 30 MG CAP PO SCH (10:19)
[2017-07-31] MEDS: LISINOPRIL 10 MG TAB PO SCH (10:20)
[2017-07-31] MEDS: METOLAZONE 5 MG TAB PO SCH (10:20)
[2017-07-31 12:13] VITALS: BP 169/76; PULSE 69; RESP 20; TEMP 97.6; O2SAT 97
--- NOTE | 2017-07-31 13:42 | HHI.NPPN ---
Subjective History of Present Illness This patient is a very pleasant 76-year-old male who is being followed by a another roof assembler i.e. Dr. Camilo in [place] previously. Apparently the patient has a history of a previous renal cell carcinoma with a left nephrectomy back in 2010. Subsequently developed CKD stage III and was relatively stable until last year when he developed increasing edema and worsening azotemia. By history he had a protein creatinine ratio of about 14 g. Renal biopsy was deferred because of the presence of a solitary kidney. It appears that he did receive therapy with prednisone empirically with no improvement. Subsequently was seen at the [facility] in [place] for a second opinion. According to the patient renal ultrasound revealed a suspicious right sided neoplasia which was also present and a subsequent MRI scan. Lesion said to be 2 cm. Patient is scheduled to follow-up with an oncologist at the [facility] August 16. According to the patient consultation will be undertaken between oncology and radiology as well as nephrology regarding how to proceed. Cryotherapy versus nephrectomy. In the interim the patient has been developing increasing generalized weakness, anorexia, fatigue, pickups and persistent worsening generalized edema. Noted to have had a serum creatinine level of 4.27 with an estimated GFR of June 25, 2017. Subsequent labs indicate a creatinine of 4.57 with an estimated GFR of July 16, 2017. The patient was seen in my office on July 27, 2017. According to the patient [facility] was recommending the initiation of dialysis during his last visit at their institution but the patient refused wanting to proceed locally. He has moved to this area and presented to establish with my practice. Interval History Patient sitting on the side of the bed with his . No verbal complaints. Indicating that he was feeling improved. Objective Data Data Vital Signs Date Time Temp Pulse Resp B/P (MAP) Pulse Ox O2 Delivery O2 Flow Rate FiO2 07/31/17 12:13 97.6 69 20 169/76 (107) 97 07/31/17 12:00 Room Air 07/31/17 10:02 96 07/31/17 08:00 Room Air 07/31/17 08:00 97.6 52 22 150/70 (96) 96 07/31/17 04:00 98.0 68 16 129/71 (90) 93 07/31/17 04:00 Room Air 07/31/17 00:00 Room Air 6/9/18 00:00 98.0 61 16 112/54 (73) 93 07/30/17 20:00 Room Air 07/30/17 20:00 97.9 71 16 126/70 (88) 93 07/30/17 17:50 94 21 07/30/17 16:00 97.5 69 20 145/90 (108) 94 07/30/17 13:44 96 21 -: 07/29/17 1430 07/31/17 0700 Physical Exam General Appearance: No Acute Distress, Comfortable Eyes Eye Exam: Sclera White Pulmonary Resp Exam: Clear Bilaterally, Breath Sounds Equal, No Distress, Decreased Bases Cardiology CV Exam: Regular, Normal Sinus Rhythm Gastrointestinal/Abdomen GI Exam: Soft, Non-Tender Integumentary Skin Exam: Normal Turgor Extremeties Extremities Exam: Moderate Edema (2+ pitting edema involving his hands and forearms.2-3+ pitting edema of the feet extending to the knees bilaterally. 1+ pitting edema thighs.) Assessment/Plan Discussed Condition With: Patient, Spouse Problem List: (1) CKD (chronic kidney disease) stage 5, GFR less than 15 ml/min ICD Codes: N18.5 - Chronic kidney disease, stage 5 Status: Chronic Plan: As long as patient is stable postdialysis today is clear for discharge from a renal point of view. His potassium level was slightly elevated this a.m. but should improve with dialysis and will be followed up as an outpatient. He was advised to restrict his dietary potassium. Diet was reviewed with him. Dialysis is still pending today. Subsequently patient will start hemodialysis as an outpatient Wednesday and Wednesday. Patient advised that he needs to be at the dialysis facility at 5: 30 in the morning and he is agreeable. If needed extra dialysis sessions can be done as an outpatient to improve his volume status as discussed with him. Patient was advised of the need to keep his hemodialysis PermCath dry at all times. To contact me should he develop fever or chills which may be indicative of a line infection. Uncertain of potential for recovery of renal function. Nephrotic syndrome can be associated with potentially reversible severe azotemia in this case superimposed on chronic kidney disease. One wonders if the patient's nephrotic syndrome may be related to recurrence of his renal cell cancer if confirmed. Successful treatment of same may improve his nephrotic syndrome if this is the case but remains to be determined as discussed with the patient. Medication should be adjusted for the patient's estimated GFR which is below 15 when indicated. Avoid gadolinium. (2) Nephrotic syndrome ICD Codes: N04.9 - Nephrotic syndrome with unspecified morphologic changes Status: Chronic Plan: According to the patient [facility] may be considering a renal biopsy at the time of tumor ablation if possible. Definitive decision regarding management however of his renal lesion not yet confirmed. (3) Anasarca associated with disorder of kidney ICD Codes: N04.9 - Nephrotic syndrome with unspecified morphologic changes Plan: Fluid removal as tolerated with dialysis. Also add furosemide (4) Renal neoplasm ICD Codes: D49.519 - Neoplasm of unspecified behavior of unspecified kidney Status: Chronic Plan: Management per [facility]. 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
[2017-07-31] MEDS: GENTAMICIN SULFATE 20 MG/2 ML VIAL OTHER PRN (16:49)
[2017-07-31] MEDS: HEPARIN SODIUM - IV 10,000 UNITS/10 ML VIAL PRN (16:49)
[2017-07-31 17:45] VITALS: O2SAT 97
== END 2017-07-31 18:02 | disposition home or self-care (01) | DRG 682 ==
LOC: N04B 12:57
PROVIDERS: ADMIT Hospitalist; ATTEND Hospitalist
PROC: 5A1D70Z Performance of Urinary Filtration, Intermittent, Less than 6 Hours Per Day (ICD-10-PCS; principal; 2017-07-29)
PROC: 05HY33Z Insertion of Infusion Device into Upper Vein, Percutaneous Approach (ICD-10-PCS; 2017-07-29)
DX: I12.0 Hypertensive chronic kidney disease with stage 5 chronic kidney disease or end stage renal disease (principal); N18.6 End stage renal disease; Q60.0 Renal agenesis, unilateral; N04.9 Nephrotic syndrome with unspecified morphologic changes; E87.70 Fluid overload, unspecified; F17.290 Nicotine dependence, other tobacco product, uncomplicated; E78.5 Hyperlipidemia, unspecified; R53.1 Weakness; R53.83 Other fatigue; R63.0 Anorexia; R80.9 Proteinuria, unspecified; D49.519 Neoplasm of unspecified behavior of unspecified kidney; Z68.27 Body mass index [BMI] 27.0-27.9, adult; Z90.5 Acquired absence of kidney; Z99.2 Dependence on renal dialysis; Z85.528 Personal history of other malignant neoplasm of kidney
CPT/HCPCS: 36558; 36591; 76937; 77001; 80048; 80069; 80074; 82306; 83970; 84155; 85025; 85610; 90935; 96374; 96375; 99152; 99153; C1750; C1769; J0690; J1580; J1644; J1940; J2250; J3010; J3370; J7030; J7050

== ENCOUNTER 2017-10-17 14:21 | Inpatient (IN) ==
--- NOTE | 2017-10-17 14:56 | XR ---
EXAM DATE: 10/17/2017 2:53 PM EDT AGE/SEX: 76 years / Male INDICATIONS: Short of Breath CLINICAL DATA: This is the patient's initial encounter. Patient reports that signs and symptoms have been present for 1 day and indicates a pain score of 0/10. MEDICAL/SURGICAL HISTORY: Hypertension. None. COMPARISON: No prior exams available for comparison. FINDINGS: Single AP view of the chest. Right-sided IJ dual-lumen central venous catheter in place with the tip at the cavoatrial junction. Lungs are clear. Heart and mediastinal silhouette within normal limits. N o evidence of pneumothorax. CONCLUSION: 1. Right-sided dual-lumen IJ central venous catheter in place. 2. No evidence of pneumothorax. Electronically signed by: Everett Casey MD 10/17/2017 2:55 PM EDT
--- NOTE | 2017-10-17 15:25 | ED ---
HPI General Chief complaint: Hypertension Stated complaint: BP Complaint/SOB Time Seen by Provider: 10/17/17 14:38 History of Present Illness HPI narrative: The patient is a 76-year-old male with a history of bilateral nephrectomy secondary to renal cancer, hypertension, anxiety, and hyperlipidemia presenting to the emergency department for evaluation of high blood pressure and shortness of breath. The patient does dialysis on Wednesday and has not missed any sessions. The patient states that his blood pressure has been out of control for the past week and his PCP has been trying to get control of it. The patient was originally taking 25 mg of hydralazine twice daily but was then increased to 50 mg twice daily 3 days ago. The patient has started to have an increased shortness of breath for the past few days and was worried that it was secondary to the medication so he did not take hydralazine today. He did take his lisinopril 20 mg though. Patient describes his shortness of breath as "trouble catching his breath "that is worse when he lies down. He states that when he has trouble catching his breath he begins to get anxious, shaky, and needs to pace the room. He has had decreased sleep because of the shortness of breath and anxiety. He denies any fever, cough, chills, increased leg swelling, calf tenderness, recent travel, chest pain, abdominal pain, or diarrhea. 3 weeks ago he did have a nephrectomy and now has no kidneys. Related Data Home Medications Medication Instructions Recorded Confirmed doxazosin 2 mg PO HS 10/17/17 10/17/17 escitalopram oxalate [Lexapro] 10 mg PO DAILY 10/17/17 10/17/17 hydralazine 50 mg PO BID 10/17/17 10/17/17 hydrocodone-acetaminophen 1 tab PO Q4-6H PRN 10/17/17 10/17/17 lisinopril 20 mg PO BID 10/17/17 10/17/17 metoprolol tartrate 25 mg PO DAILY 10/17/17 10/17/17 simvastatin 40 mg PO BID 10/17/17 10/17/17 zolpidem [Ambien] 10 mg PO PRN 10/17/17 10/17/17 Allergies Allergy/AdvReac Type Severity Reaction Status Date / Time No Known Allergies Allergy Unverified 10/17/17 14:46 Review of Systems ROS: all other systems reviewed are negative PMFSH Medical History Medical History H/O unilateral nephrectomy (Acute) HTN (hypertension) (Acute) Surgical History Surgical History H/O laminectomy (Acute) Social History Social History Substance History: No History of Abuse Smoking Status: Former smoker How Often Do You Have a Drink Containing Alcohol: Never Recent Travel in [facility] within the Last 8 Weeks: No Recent Out of Country Travel within the Last 8 Weeks: No Exam Narrative Exam Narrative: GENERAL: Well-developed well-nourished male appearing in no acute respiratory distress. Sitting upright in the bed. SKIN: Focused skin assessment warm/dry. A port is noted in the right upper chest with no drainage, tenderness, erythema, or edema. HEAD: Atraumatic. Normocephalic. EYES: Pupils equal and round. No scleral icterus. No injection or drainage. ENT: No nasal bleeding or discharge. Mucous membranes pink and moist. NECK: Trachea midline. No JVD. CARDIOVASCULAR: Irregular rhythm. 2/6 holosystolic murmur heard loudest in the second right intercostal space. RESPIRATORY: No accessory muscle use. Crackles noted at the bases bilaterally, no wheezing. GASTROINTESTINAL: Abdomen soft, non-tender, nondistended. Hepatic and splenic margins not palpable. Surgical incisions noted from recent nephrectomy. There are nonerythematous, nonedematous, and nontender with no drainage. MUSCULOSKELETAL: No obvious deformities. No clubbing. No cyanosis. +1 pitting edema in the lower extremities bilaterally. No calf tenderness or erythema noted. NEUROLOGICAL: Awake and alert. No obvious cranial nerve deficits. Motor grossly within normal limits. Normal speech. Course Initial Documented Vital Signs Temperature 97.8 F 10/17/17 14:28 Pulse Rate 55 L 10/17/17 14:28 Respiratory Rate 20 10/17/17 14:28 Blood Pressure 214/87 H 10/17/17 14:28 Pulse Oximetry 98 10/17/17 14:28 Last Documented Vital Signs Temperature 97.8 F 10/17/17 14:28 Pulse Rate 64 10/17/17 19:02 Respiratory Rate 18 10/17/17 19:02 Blood Pressure 191/86 H 10/17/17 19:02 Pulse Oximetry 98 10/17/17 19:02 Medical Decision Making MDM Narrative Medical decision making narrative: Patient room to the emergency department, does have some Rales bibasilarly as well as some pedal edema. Recent nephrectomies for history of renal cancer. He is significantly hypertensive and this may be a chronic issue but the patient still with some shortness of breath and while he is able to speak in full sentences has a significant orthopnea component as well. Heart rate is very irregular but the sinus on EKG without evidence for hyperkalemia despite his potassium being 5.8. The patient differential remains for pulmonary embolism as well as congestive heart failure or fluid overload in renal disease. CT PE protocol was performed which does show some bilateral pleural effusions is minimal pulmonary edema. No indication for calcium as has no ekg changes. Will pursue more aggressive blood pressure control at this time and admission to the hospital, I am awaiting callback for Dr. Benítez for additional recommendations as well as [facility]. Spoke with Dr. Benítez who would like to dialyze the patient night which I think is appropriate. Given dialysis tonight cardizem on hold to prevent hemodynamic instability. Still awaiting callback from [facility] for admission. Discussed with Dr. Reid to reassess BP after dialysis, may need more aggressive BP management. Also discussed may need echo to exclude CHF as cause of fluid overload. Medical Screen Exam Complete: Yes Emergency Medical Condition: Yes Differential Diagnosis Differential Diagnosis: Pulmonary embolism, pulmonary edema, CHF, pneumonia, anxiety Lab Data Result diagrams: 10/17/17 16:02 10/17/17 16:02 Lab Results 10/17/17 10/17/17 10/17/17 Range/Units 16:02 16:02 16:02 WBC 5.1 (4.0-11.0) th/mm3 RBC 3.28 L (4.50-5.90) mil/mm3 Hgb 10.5 L (13.0-17.0) gm/dL Hct 31.7 L (39.0-51.0) % MCV 96.5 (80.0-100.0) fL MCH 32.1 (27.0-34.0) pg MCHC 33.2 (32.0-36.0) % RDW 15.0 (11.6-17.2) % Plt Count 160 (150-450) th/mm3 MPV 8.2 (7.0-11.0) fL Neut % (Auto) 66.7 (16.0-70.0) % Lymph % (Auto) 22.0 (9.0-44.0) % Humphreys % (Auto) 6.6 (0.0-8.0) % Eos % (Auto) 3.1 (0.0-4.0) % Baso % (Auto) 1.6 (0.0-2.0) % Neut # (Auto) 3.4 (1.8-7.7) th/mm3 Lymph # (Auto) 1.1 (1.0-4.8) th/mm3 Humphreys # (Auto) 0.3 (0.0-0.9) th/mm3 Eos # (Auto) 0.2 (0.0-0.4) th/mm3 Baso # (Auto) 0.1 (0.0-0.2) th/mm3 WBC Differential . Differential Comment Auto diff final PT 11.4 (9.8-11.6) sec INR 1.1 Ratio APTT 26.7 (24.3-30.1) sec Sodium 140 (136-145) meq/L Potassium 5.8 H (3.5-5.1) meq/L Chloride 103 (98-107) meq/L Carbon Dioxide 20.8 L (21.0-32.0) meq/L Anion Gap 16 H (5-15) meq/L BUN 57 H (7-18) mg/dL Creatinine 8.90 H (0.60-1.30) mg/dL Estimated GFR 6 L (>89) mL/min Random Glucose 78 (74-106) mg/dL Calcium 8.4 L (8.5-10.1) mg/dL Total Bilirubin 0.4 (0.2-1.0) mg/dL AST 11 L (15-37) U/L ALT 23 (12-78) U/L Alkaline Phosphatase 134 H (45-117) U/L Troponin I 0.05 (0.02-0.05) ng/mL Total Protein 7.1 (6.4-8.2) g/dL Albumin 3.7 (3.4-5.0) g/dL Imaging Data Radiologist's impression: Chest X-Ray 10/17/17 14:35 CONCLUSION: 1. Right-sided dual-lumen IJ central venous catheter in place. 2. No evidence of pneumothorax. Chest CTA 10/17/17 15:42 CONCLUSION: 1. No evidence of pulmonary embolus. 2. Moderate severity pulmonary emphysema. 3. Coronary artery calcification. 4. Possible pulmonary arterial hypertension. Discharge Plan Discharge Disposition Patient Disposition: 30 Still Patient Discharge Condition Condition: Stable Discharge Details Diagnosis: Acute hyperkalemia Physicians Team ED Provider: Robel Neely Primary Care Provider: UNKNOWN, Rxs /Orders / Referrals /Forms Prescriptions: No Action hydrocodone-acetaminophen 5-325 mg Tablet 1 tab PO Q4-6H PRN (Reason: Pain) RF: 0 lisinopril 20 mg Tablet 20 mg PO BID RF: 0 simvastatin 40 mg Tablet 40 mg PO BID RF: 0 hydralazine 50 mg Tablet 50 mg PO BID RF: 0 zolpidem [Ambien] 10 mg Tablet 10 mg PO PRN RF: 0 doxazosin 2 mg Tablet 2 mg PO HS RF: 0 escitalopram oxalate [Lexapro] 10 mg Tablet 10 mg PO DAILY RF: 0 metoprolol tartrate 25 mg Tablet 25 mg PO DAILY RF: 0 Status ED Status: Pending Admission
[2017-10-17 16:27] LABS: Baso # (Auto) 0.1 th/mm3 (0.0-0.2); Baso % (Auto) 1.6 % (0.0-2.0); Eos # (Auto) 0.2 th/mm3 (0.0-0.4); Eos % (Auto) 3.1 % (0.0-4.0); Hematocrit 31.7 % (39.0-51.0); Hemoglobin 10.5 gm/dL (13.0-17.0); Lymph # (Auto) 1.1 th/mm3 (1.0-4.8); Mean Corpuscular HGB Conc 33.2 % (32.0-36.0); Mean Corpuscular Hemoglobin 32.1 pg (27.0-34.0); Mean Corpuscular Volume 96.5 fL (80.0-100.0); Mean Platelet Volume 8.2 fL (7.0-11.0); Mono # (Auto) 0.3 th/mm3 (0.0-0.9); Mono % (Auto) 6.6 % (0.0-8.0); Neut # (Auto) 3.4 th/mm3 (1.8-7.7); Neut % (Auto) 66.7 % (16.0-70.0); Platelet Count 160 th/mm3 (150-450); Red Blood Count 3.28 mil/mm3 (4.50-5.90); White Blood Count 5.1 th/mm3 (4.0-11.0)
[2017-10-17 16:32] LABS: Activated Partial Thrombo Time 26.7 sec (24.3-30.1); INR 1.1 Ratio; Prothrombin Time 11.4 sec (9.8-11.6)
[2017-10-17 16:41] LABS: Alanine Aminotransferase 23 U/L (12-78); Albumin 3.7 g/dL (3.4-5.0); Anion Gap 16 meq/L (5-15); Aspartate Aminotransferase 11 U/L (15-37); Blood Urea Nitrogen 57 mg/dL (7-18); Calcium 8.4 mg/dL (8.5-10.1); Carbon Dioxide 20.8 meq/L (21.0-32.0); Chloride 103 meq/L (98-107); Glomerular Filtration Rate 6 mL/min (>89); Glucose,Random 78 mg/dL (74-106); Potassium 5.8 meq/L (3.5-5.1); Sodium 140 meq/L (136-145)
[2017-10-17 16:45] LABS: Alkaline Phosphatase 134 U/L (45-117); Total Protein 7.1 g/dL (6.4-8.2); Troponin I 0.05 ng/mL (0.02-0.05)
--- NOTE | 2017-10-17 17:32 | CT ---
EXAM DATE: 10/17/2017 5:21 PM EDT AGE/SEX: 76 years / Male INDICATIONS: Shortness of breath. CLINICAL DATA: This is the patient's initial encounter. Patient reports that signs and symptoms have been present for 1 day and indicates a pain score of 0/10. MEDICAL/SURGICAL HISTORY: Hypertension. Nephrectomy, left. laminectomy RADIATION DOSE: 12.78 CTDI (mGy) COMPARISON: No prior exams available for comparison. TECHNIQUE: Volumetric scanning was performed using a multi-row detector CT scanner during bolus infu serjio of 50 ml Visipaque 320 (iodixanol) nonionic water-soluble contrast as a single exam dose. The d nelida was post processed with a variety of visualization algorithms including full volume maximum inten sity projection and sliding thin slab reformation. Using automated exposure control and adjustment o f the mA and/or kV according to patient size, radiation dose was kept as low as reasonably achievable to obtain optimal diagnostic quality images. DICOM format image data is available electronically fo r review and comparison. FINDINGS: Pulmonary Arteries: Enlargement of the main pulmonary artery suggesting possible pulmonary arterial hypertension. No filling defects to suggest pulmonary embolus. Lung: Moderate severity bilateral pulmonary parenchymal emphysema. Mild atelectasis at the lung base s. Groundglass opacity at the dependent left lung base likely are presenting atelectasis. Effusion: Small left greater than right pleural effusions. Mediastinum: Coronary artery calcifications. Aortic diameter within normal limits. Trace pericardial effusion. Multiple mildly prominent scattered mediastinal lymph nodes, likely reactive. Other: The axilla is unremarkable. CONCLUSION: 1. No evidence of pulmonary embolus. 2. Moderate severity pulmonary emphysema. 3. Coronary artery calcification. 4. Possible pulmonary arterial hypertension. Electronically signed by: Everett Casey MD 10/17/2017 5:31 PM EDT
[2017-10-17] MEDS ORDERED: niCARdipine Inj 25 MG in Sodium Chlor 0.9% Inj 240 ML IV.CONT PRN (18:21)
[2017-10-17] MEDS ORDERED: Sod Chloride 0.9% Inj 1,000 ML IV.CONT PRN (18:39)
[2017-10-17] MEDS ORDERED: Heparin 10,000 UNITS/10 ML Vial (for IV use) OTHER PRN (18:39)
[2017-10-17] MEDS ORDERED: Gelatin 12 MM/7 MM Topical Foam TOPICAL PRN (18:39)
[2017-10-17] MEDS ORDERED: Acetaminophen 325 MG Tablet PO PRN (18:39)
[2017-10-17] MEDS ORDERED: Albumin Human 25% Inj 100 ML IV.SIG PRN (18:39)
[2017-10-17] MEDS ORDERED: Sod Chloride 0.9% Inj 1,000 ML OTHER PRN ×2 (18:39)
[2017-10-17] MEDS ORDERED: Bisacodyl 10 MG Supp RECTAL PRN (20:27)
--- NOTE | 2017-10-17 20:41 | P.HPFP ---
History of Present Illness Primary Care Physician: Dr. Arana History of Present Illness: A very pleasant 76 yo male who underwent right nephrectomy about 3 weeks ago at [facility] for renal cell carcinoma. He also has history of left nephrectomy about 14 years ago for renal cell carcinoma on that side. He has been under dialysis for the past month and a half with Dr. Benítez and receives dialysis MW. He reports he has been having difficulty getting his blood pressure under control and systolic blood pressures are running from 190 into 200s. He was started on hydralazine this past week and several days ago the dose was increased. For the past 3 days he has had mild shortness of breath and headaches with high blood pressure. He came into the ER today as the shortness of breath had worsened and he was afraid he would have a heart attack or stroke. He did not take his hydralazine this morning out of concern it may have been causing the symptoms. In the ED, chest CTA was negative for PE but did show small b/l pleural effusions. Potassium level was 5.8. Blood pressure was initially 233/93. He was taken to dialysis per Dr. Benítez and blood pressure is now 123/80 during dialysis. Patient states he is feeling better. He denied any confusion or vision changes. Denied any chest pain or pressure. Denies any previous cardiac history. - Diagnosis (1) Fluid overload (2) Pulmonary edema (3) Hypertensive crisis (4) Acute hyperkalemia Review of Systems All other systems reviewed negative except as stated in HPI PMFSH - History History Provided By: Patient - Medical History Medical History: Medical History (Last Reviewed 10/17/17 @ 23:28 by Johnna Reid MD) ESRD (end stage renal disease) on dialysis H/O unilateral nephrectomy HTN (hypertension) - Surgical History Surgical History: Surgical History (Last Reviewed 10/17/17 @ 23:28 by Johnna Reid MD) H/O laminectomy - Tobacco History Tobacco Use In Past 30 Days: No Smoking Status: Former smoker - Alcohol History How Often Do You Have a Drink Containing Alcohol: Never - Substance Use History Substance History: No History of Abuse - Travel History Recent Travel in the [place] Within the Last 8 Weeks: No Recent Travel Out of the Country Within the Last 8 Weeks: No - Immunization History Tetanus Immunization: Unsure Hx Influenza Vaccine This Season: Unable to Assess Medications and Allergies Active Medications: Active Medications Acetaminophen (Tylenol) 650 mg PO UNSCH PRN PRN Reason: SEE LABEL COMMENTS Clonidine HCl (Catapres) 0.1 mg PO UNSCH PRN PRN Reason: SEE LABEL COMMENTS Diphenhydramine HCl (Benadryl) 25 mg PO UNSCH PRN PRN Reason: SEE LABEL COMMENTS Gelatin (Gelfoam 12 Mm/7 Mm Topical) 1 foam TOPICAL PRN PRN PRN Reason: help stop bleeding from site Gentamicin Sulfate (Gentamicin Inj) 20 mg OTHER WITH DIALYSIS PRN PRN Reason: Dwell Gentamycin Lock Heparin Sodium (Porcine) (Heparin Inj) 8,000 units OTHER WITH DIALYSIS PRN PRN Reason: for machine prime Heparin Sodium (Porcine) (Heparin Inj) 1,000 units OTHER WITH DIALYSIS PRN PRN Reason: Dwell Heparin to Fill Catheter Albumin Human (Flexbumin 25% Inj) 100 mls @ 60 mls/hr IV.SIG WITH DIALYSIS PRN PRN Reason: hypotension / volume replace Sodium Chloride (Ns Inj) 1,000 mls @ 0 mls/hr OTHER .Q0M PRN PRN Reason: for prime and rinse back Sodium Chloride (Ns Inj) 1,000 mls @ 200 mls/hr OTHER .Q5H PRN PRN Reason: for dialyzer flush PRN Sodium Chloride (Ns Inj) 1,000 mls @ 0 mls/hr IV.CONT .Q0M PRN PRN Reason: hypotension / volume replace Nitroglycerin (Nitrostat Sl) 0.4 mg SL Q5M PRN PRN Reason: CHEST PAIN Ondansetron HCl (Zofran Inj) 4 mg IV.PUSH UNSCH PRN PRN Reason: NAUSEA OR VOMITING Sodium Chloride (Ns Flush) 2 ml IV.FLUSH UNSCH PRN PRN Reason: FLUSH AFTER USING IV ACCESS Sodium Chloride (Ns Flush) 5 ml IV.FLUSH PRN PRN PRN Reason: flush each lumen during HD Allergies Allergy/AdvReac Type Severity Reaction Status Date / Time No Known Allergies Allergy Unverified 10/17/17 14:46 Home Medications Medication Instructions Recorded Confirmed Type doxazosin 2 mg PO HS 10/17/17 10/17/17 History escitalopram oxalate [Lexapro] 10 mg PO DAILY 10/17/17 10/17/17 History hydralazine 50 mg PO BID 10/17/17 10/17/17 History hydrocodone-acetaminophen 1 tab PO Q4-6H PRN 10/17/17 10/17/17 History lisinopril 20 mg PO BID 10/17/17 10/17/17 History metoprolol tartrate 25 mg PO DAILY 10/17/17 10/17/17 History simvastatin 40 mg PO BID 10/17/17 10/17/17 History zolpidem [Ambien] 10 mg PO PRN 10/17/17 10/17/17 History Exam Vital signs: Vital Signs 10/17/17 14:28 10/17/17 14:30 10/17/17 16:15 Temperature 97.8 F Pulse Rate 55 L 61 Respiratory Rate 20 17 19 Blood Pressure 214/87 H 242/102 H Pulse Oximetry 98 94 L 10/17/17 17:52 10/17/17 17:55 10/17/17 19:02 Temperature Pulse Rate 55 L 55 L 64 Respiratory Rate 19 19 18 Blood Pressure 233/93 H 191/86 H Pulse Oximetry 95 98 Intake & Output 10/17/17 10/17/17 10/18/17 06:59 18:59 06:59 Weight 65.317 kg Narrative: GENERAL: Pleasant lean male, in no apparent distress. SKIN: well perfused, no rashes. HEENT: moist mucous membranes, no conjunctival injection or icterus, EOMI Neck: supple, no masses, no JVD CARDIOVASCULAR: Regular rate and rhythm without murmurs, gallops, or rubs. equal dorsalis pedis pulses. RESPIRATORY: Faint bibasilar crackles. No respiratory distress. GASTROINTESTINAL: Well healing right lower quadrant abdominal incision. Abdomen soft, non-tender, nondistended. Normal active bowel sounds MUSCULOSKELETAL: no joint effusions or NEURO: Alert & Oriented x4 to person, place, time, situation. Moves all ext x4 Results - Labs Result diagrams: 10/17/17 16:02 10/17/17 16:02 Abnormal lab results 10/17/17 10/17/17 10/17/17 Range/Units 16:02 16:02 16:02 RBC 3.28 L (4.50-5.90) mil/mm3 Hgb 10.5 L (13.0-17.0) gm/dL Hct 31.7 L (39.0-51.0) % Potassium 5.8 H (3.5-5.1) meq/L Carbon Dioxide 20.8 L (21.0-32.0) meq/L Anion Gap 16 H (5-15) meq/L BUN 57 H (7-18) mg/dL Creatinine 8.90 H (0.60-1.30) mg/dL Estimated GFR 6 L (>89) mL/min Calcium 8.4 L (8.5-10.1) mg/dL AST 11 L (15-37) U/L Alkaline Phosphatase 134 H (45-117) U/L B-Natriuretic Peptide Greater than 5000 H (0-100) pg/mL Short CBC 10/17/17 Range/Units 16:02 WBC 5.1 (4.0-11.0) th/mm3 Hgb 10.5 L (13.0-17.0) gm/dL Hct 31.7 L (39.0-51.0) % Plt Count 160 (150-450) th/mm3 BMP 10/17/17 16:02 Sodium 140 Potassium 5.8 H Chloride 103 Carbon Dioxide 20.8 L BUN 57 H Creatinine 8.90 H Calcium 8.4 L Cardiac Enzymes 10/17/17 Range/Units 16:02 Troponin I 0.05 (0.02-0.05) ng/mL Liver Function 10/17/17 Range/Units 16:02 Total Bilirubin 0.4 (0.2-1.0) mg/dL AST 11 L (15-37) U/L ALT 23 (12-78) U/L Alkaline Phosphatase 134 H (45-117) U/L Albumin 3.7 (3.4-5.0) g/dL - Imaging Impressions Chest X-Ray 10/17/17 14:35 CONCLUSION: 1. Right-sided dual-lumen IJ central venous catheter in place. 2. No evidence of pneumothorax. Chest CTA 10/17/17 15:42 CONCLUSION: 1. No evidence of pulmonary embolus. 2. Moderate severity pulmonary emphysema. 3. Coronary artery calcification. 4. Possible pulmonary arterial hypertension. Caprini VTE Risk Assessment Caprini VTE Risk Assessment: Moderate/High Risk (score >= 2) Caprini Risk Assessment Model: Point Value = 1 Point Value = 2 Point Value = 3 Point Value = 5 Age 41-60 Minor surgery BMI > 25 kg/m2 Swollen legs Varicose veins or History of unexplained or recurrent spontaneous Oral contraceptives or hormone replacement Sepsis (< 1 month) Serious lung disease, including pneumonia (< 1 month) Abnormal pulmonary function Acute myocardial infarction Congestive heart failure (< 1 month) History of inflammatory bowel disease Medical patient at bed rest Age 61-74 Arthroscopic surgery Major open surgery (> 45 min) Laparoscopic surgery (> 45 min) Malignancy Confined to bed (> 72 hours) Immobilizing plaster cast Central venous access Age >= 75 History of VTE Family history of VTE Factor V Leiden Prothrombin [id number] Lupus anticoagulant Anticardiolipin antibodies Elevated serum homocysteine Heparin-induced thrombocytopenia Other congenital or acquired thrombophilia Stroke (< 1 month) Elective arthroplasty Hip, pelvis, or leg fracture Acute spinal cord injury (< 1 month) Prophylaxis Regimen: Total Risk Factor Score Risk Level Prophylaxis Regimen 0-1 Low Early ambulation 2 Moderate Order ONE of the following: *Sequential Compression Device (SCD) *Heparin 5000 units SQ BID 3-4 Higher Order ONE of the following medications: *Heparin 5000 units SQ TID *Enoxaparin/Lovenox 40 mg SQ daily (WT < 150 kg, CrCl > 30 mL/min) *Enoxaparin/Lovenox 30 mg SQ daily (WT < 150 kg, CrCl > 10-29 mL/min) *Enoxaparin/Lovenox 30 mg SQ BID (WT < 150 kg, CrCl > 30 mL/min) AND/OR *Sequential Compression Device (SCD) 5 or more Highest Order ONE of the following medications: *Heparin 5000 units SQ TID (Preferred with Epidurals) *Enoxaparin/Lovenox 40 mg SQ daily (WT < 150 kg, CrCl > 30 mL/min) *Enoxaparin/Lovenox 30 mg SQ daily (WT < 150 kg, CrCl > 10-29 mL/min) *Enoxaparin/Lovenox 30 mg SQ BID (WT < 150 kg, CrCl > 30 mL/min) AND *Sequential Compression Device (SCD) Assessment and Plan - Assessment (1) Fluid overload Code(s): E87.70 - Fluid overload, unspecified Status: Acute (2) Pulmonary edema Code(s): J81.1 - Chronic pulmonary edema Status: Acute (3) Hypertensive crisis Code(s): I16.9 - Hypertensive crisis, unspecified Status: Acute (4) Acute hyperkalemia Code(s): E87.5 - Hyperkalemia Status: Acute - Assessment and Plan Continue with dialysis. Consult to nephrology/Dr. Benítez. Resume home blood pressure medications and adjust as needed. Repeat BMP in a.m. DVT prophylaxis with SCDs.
[2017-10-17 22:50] LABS: Hepatitits B Surface Antigen Nonreactive (Nonreactive)
[2017-10-17] MEDS: hydrALAZINE 50 MG Tablet PO SCH (22:53)
[2017-10-17] MEDS: Lisinopril 20 MG Tablet PO SCH (22:53)
[2017-10-17] MEDS: Senna/Docusate Sodium 8.6/50 MG Tablet PO SCH (22:53)
[2017-10-17 23:19] LABS: Hepatitis A IgM Antibody Nonreactive (Nonreactive)
[2017-10-18 06:45] LABS: Baso # (Auto) 0.1 th/mm3 (0.0-0.2); Baso % (Auto) 1.3 % (0.0-2.0); Eos # (Auto) 0.1 th/mm3 (0.0-0.4); Eos % (Auto) 3.1 % (0.0-4.0); Hematocrit 26.8 % (39.0-51.0); Hemoglobin 9.2 gm/dL (13.0-17.0); Lymph # (Auto) 0.8 th/mm3 (1.0-4.8); Lymph % (Auto) 17.8 % (9.0-44.0); Mean Corpuscular HGB Conc 34.2 % (32.0-36.0); Mean Corpuscular Hemoglobin 32.4 pg (27.0-34.0); Mean Corpuscular Volume 94.9 fL (80.0-100.0); Mean Platelet Volume 8.2 fL (7.0-11.0); Mono # (Auto) 0.5 th/mm3 (0.0-0.9); Neut # (Auto) 3.2 th/mm3 (1.8-7.7); Neut % (Auto) 67.8 % (16.0-70.0); Platelet Count 140 th/mm3 (150-450); Red Blood Count 2.83 mil/mm3 (4.50-5.90); Red Cell Distribution Width 14.7 % (11.6-17.2); White Blood Count 4.7 th/mm3 (4.0-11.0)
[2017-10-18 07:20] LABS: Calcium 7.7 mg/dL (8.5-10.1); Carbon Dioxide 30.3 meq/L (21.0-32.0); Potassium 3.6 meq/L (3.5-5.1)
--- NOTE | 2017-10-18 10:25 | P.CONNP ---
<Sofia Burr - Last Filed: 10/18/17 10:10> History of Present Illness Service: Nephrology Consult date: 10/17/17 Requesting Physician: Robel Neely Reason for Consult: ESRD on HD Primary Care Provider: UNKNOWN Chief Complaint: Headache, elevated BP History of Present Illness: The patient is a 76 yo [place] male who is known to our services for ESRD on HD. He presented to the ED last evening with complaints of uncontrolled HTN and headache. He underwent right nephrectomy about 3 weeks ago for RCC leaving him with no kidneys as he had previous left nephrectomy about 15 years ago for the same dx. He has been on dialysis now for approximately 3 months. He has been having worsening BP since his nephrectomy and adjustments have been made as of recent. He is currently taking Lisinopril 20mg BID (increased from QD on ), Hydralazine 50mg BID (25mg BID started 10/08 and was increased to 50mg BID ), Doxazosin 2mg HS, and Toprol XL 25mg QD. Says that home BP readings have been systolically 170-200 range. Yesterday, was experiencing ARNDT and some chest pressure prompting ED evaluation. Received HD last night for hyperkalemia and is seen during HD today (for regular MWF schedule). BP on machine 132/74. Some ARNDT, but improved from admission. Regular tx time 3.5h. Last outpatient HD 10/15 Review of Systems Constitutional: Reports headache(s) Cardiovascular: Reports chest pain (described as pressure) PMFSH - History History Provided By: Patient - Medical History Medical History: Medical History (Last Updated 10/18/17 @ 10:17 by ROLANDO Moyer) ESRD (end stage renal disease) on dialysis HTN (hypertension) S/p nephrectomy - Surgical History Surgical History: Surgical History (Last Reviewed 10/17/17 @ 23:28 by Johnna Reid MD) H/O laminectomy - Tobacco History Second Hand Smoke Exposure: No Tobacco Use In Past 30 Days: No Smoking Status: Former smoker Tobacco Type: Cigarettes - Alcohol History How Often Do You Have a Drink Containing Alcohol: Never - Substance Use History Substance History: No History of Abuse - Travel History Recent Travel in the [place] Within the Last 8 Weeks: No Recent Travel Out of the Country Within the Last 8 Weeks: No - Immunization History Tetanus Immunization: Unsure Hx Influenza Vaccine This Season: Unable to Assess Medications and Allergies Allergies Allergy/AdvReac Type Severity Reaction Status Date / Time No Known Allergies Allergy Unverified 10/17/17 14:46 Home Medications Medication Instructions Recorded Confirmed Type doxazosin 2 mg PO HS 10/17/17 10/17/17 History escitalopram oxalate [Lexapro] 10 mg PO DAILY 10/17/17 10/17/17 History hydralazine 50 mg PO BID 10/17/17 10/17/17 History hydrocodone-acetaminophen 1 tab PO Q4-6H PRN 10/17/17 10/17/17 History lisinopril 20 mg PO BID 10/17/17 10/17/17 History metoprolol tartrate 25 mg PO DAILY 10/17/17 10/17/17 History simvastatin 40 mg PO BID 10/17/17 10/17/17 History zolpidem [Ambien] 10 mg PO PRN 10/17/17 10/17/17 History Active Medications: Active Medications Hydrocodone Bitart/Acetaminophen ([place] 5/325) 1 tab PO Q4H PRN PRN Reason: pain 3-10 Last Admin: 10/18/17 09:08 Dose: 1 tab Al Hydroxide/Mg Hydroxide (Milk Of Romina Akbar) 30 ml PO Q12H PRN PRN Reason: Mild Constipation Atorvastatin Calcium (Lipitor) 40 mg PO DAILY JULIANN Bisacodyl (Dulcolax Supp) 10 mg RECTAL DAILY PRN PRN Reason: SEVERE CONSITIPATION Clonidine HCl (Catapres) 0.1 mg PO UNSCH PRN PRN Reason: SEE LABEL COMMENTS Diphenhydramine HCl (Benadryl) 25 mg PO UNSCH PRN PRN Reason: SEE LABEL COMMENTS Doxazosin Mesylate (Cardura) 2 mg PO HS JULIANN Escitalopram Oxalate (Lexapro) 10 mg PO DAILY JULIANN Gelatin (Gelfoam 12 Mm/7 Mm Topical) 1 foam TOPICAL PRN PRN PRN Reason: help stop bleeding from site Gentamicin Sulfate (Gentamicin Inj) 20 mg OTHER WITH DIALYSIS PRN PRN Reason: Dwell Gentamycin Lock Heparin Sodium (Porcine) (Heparin Inj) 8,000 units OTHER WITH DIALYSIS PRN PRN Reason: for machine prime Heparin Sodium (Porcine) (Heparin Inj) 1,000 units OTHER WITH DIALYSIS PRN PRN Reason: Dwell Heparin to Fill Catheter Hydralazine HCl (Apresoline) 50 mg PO BID [facility] Last Admin: 10/17/17 22:53 Dose: 50 mg Albumin Human (Flexbumin 25% Inj) 100 mls @ 60 mls/hr IV.SIG WITH DIALYSIS PRN PRN Reason: hypotension / volume replace Sodium Chloride (Ns Inj) 1,000 mls @ 0 mls/hr OTHER .Q0M PRN PRN Reason: for prime and rinse back Sodium Chloride (Ns Inj) 1,000 mls @ 200 mls/hr OTHER .Q5H PRN PRN Reason: for dialyzer flush PRN Sodium Chloride (Ns Inj) 1,000 mls @ 0 mls/hr IV.CONT .Q0M PRN PRN Reason: hypotension / volume replace Lactulose (Lactulose Liq) 30 ml PO DAILY PRN PRN Reason: SEVERE CONSITIPATION Lisinopril (Prinivil) 20 mg PO BID [facility] Last Admin: 10/17/17 22:53 Dose: 20 mg Metoprolol Tartrate (Lopressor) 25 mg PO DAILY [facility] Nitroglycerin (Nitrostat Sl) 0.4 mg SL Q5M PRN PRN Reason: CHEST PAIN Ondansetron HCl (Zofran Inj) 4 mg IV.PUSH UNSCH PRN PRN Reason: NAUSEA OR VOMITING Ondansetron HCl (Zofran Inj) 4 mg IV.PUSH Q6H PRN PRN Reason: NAUSEA OR VOMITING Senna/Docusate Sodium (Elizabeth-Colace) 1 tab PO BID [facility] Last Admin: 10/17/17 22:53 Dose: 1 tab Sennosides (Senokot) 17.2 mg PO Q12H PRN PRN Reason: Moderate Constipation Sodium Chloride (Ns Flush) 2 ml IV.FLUSH UNSCH PRN PRN Reason: FLUSH AFTER USING IV ACCESS Sodium Chloride (Ns Flush) 5 ml IV.FLUSH PRN PRN PRN Reason: flush each lumen during HD Zolpidem Tartrate (Ambien) 10 mg PO HS PRN PRN Reason: INSOMNIA Last Admin: 10/18/17 00:27 Dose: 10 mg Exam Vital signs: Vital Signs 10/17/17 14:28 10/17/17 14:30 10/17/17 16:15 Temperature 97.8 F Pulse Rate 55 L 61 Respiratory Rate 20 17 19 Blood Pressure 214/87 H 242/102 H Pulse Oximetry 98 94 L 10/17/17 17:52 10/17/17 17:55 10/17/17 19:02 Temperature Pulse Rate 55 L 55 L 64 Respiratory Rate 19 19 18 Blood Pressure 233/93 H 191/86 H Pulse Oximetry 95 98 10/17/17 23:31 10/17/17 23:33 10/18/17 00:28 Temperature 97.6 F Pulse Rate 62 Respiratory Rate 18 16 20 Blood Pressure 205/89 H Pulse Oximetry 92 L 10/18/17 01:04 10/18/17 01:48 10/18/17 04:00 Temperature 97.6 F 97.6 F Pulse Rate 56 L 61 Respiratory Rate 16 16 Blood Pressure 169/79 H 197/76 H Pulse Oximetry 93 L 93 L 92 L 10/18/17 07:15 10/18/17 08:00 Temperature 98.4 F Pulse Rate 52 L 52 L Respiratory Rate 18 Blood Pressure 175/83 H Pulse Oximetry 100 Intake & Output 10/17/17 10/18/17 10/18/17 18:59 06:59 18:59 Intake Total 720 / 720 5 / 5 Output Total 4300 / 4300 Balance -3580 / -3580 5 / 5 Weight 65.317 kg 65.3 kg Intake: IV 5 / 5 Oral 720 / 720 Output: Urine 2300 / 2300 Hemodialysis Amount 1999 Other: Date of Last Bowel Movement 10/17/17 - Constitutional no acute distress - Routine HEENT Exam Head: Present: normocephalic, atraumatic - Routine Neck Exam Present: supple - Routine Respiratory Exam Present: CTA bilaterally - Routine Cardiovascular Exam Present: S1, S2, bradycardia - Routine Abdominal Exam Present: soft, normoactive bowel sounds - Routine Extremities Exam Absent: edema - Routine Skin Exam Present: intact - Routine Neurological Exam Present: alert, oriented X3 Results - Lab Results 10/18/17 05:08 10/18/17 05:08 Most recent lab results Calcium 7.7 mg/dL (8.5-10.1) L 10/18/17 05:08 Assessment and Plan - Assessment (1) ESRD (end stage renal disease) on dialysis Code(s): N18.6 - End stage renal disease; Z99.2 - Dependence on renal dialysis Status: Acute Plan: s/p HD 10/17 for hyperkalemia and seen during HD today. Tolerating session well. No significant fluid on examination. UF at 2.5L as tolerating well. To continue on MWF scheduled. Discussed low K+ diet. Also discussed potentially increasing treatment time if needed as outpatient. Dialyzing via LIJ permcath. States he has canceled outpatient vein mapping and shunt placement as he feels that he has a potential for a donor kidney. Advised that it would be prudent to proceed with shunt formation as he would get better clearances and have less likelihood infection. He was in verbal agreement to proceed. Medications should be adjusted for the patient's ESRD. Avoid gadolinium. (2) Hypertension Code(s): I10 - Essential (primary) hypertension Status: Acute Plan: Increase Hydralazine to 50mg TID. Continue on Lisinopril 20mg BID, Metoprolol 25mg QD, and Doxazosin 2mg HS. Add Procardia XL 60mg. Monitor BP and adjust further if needed. Discussed salt restrictions. Pt reports he underwent cardiac eval recently at [facility] in preparation for nephrectomy. <Karen Benítez - Last Filed: 10/19/17 10:46> History of Present Illness Primary Care Provider: UNKNOWN [facility] - Medical History Medical History: Medical History (Last Updated 10/18/17 @ 10:17 by ROLANDO Moyer) ESRD (end stage renal disease) on dialysis HTN (hypertension) S/p nephrectomy - Surgical History Surgical History: Surgical History (Last Reviewed 10/17/17 @ 23:28 by Johnna Reid MD) H/O laminectomy Medications and Allergies Active Medications: Active Medications Hydrocodone Bitart/Acetaminophen ([place] 5/325) 1 tab PO Q4H PRN PRN Reason: pain 3-10 Last Admin: 10/19/17 09:36 Dose: 1 tab Al Hydroxide/Mg Hydroxide (Milk Of Romina Licarl) 30 ml PO Q12H PRN PRN Reason: Mild Constipation Atorvastatin Calcium (Lipitor) 40 mg PO DAILY JULIANN Last Admin: 10/19/17 08:24 Dose: 40 mg Bisacodyl (Dulcolax Supp) 10 mg RECTAL DAILY PRN PRN Reason: SEVERE CONSITIPATION Clonidine HCl (Catapres) 0.1 mg PO UNSCH PRN PRN Reason: SEE LABEL COMMENTS Diphenhydramine HCl (Benadryl) 25 mg PO UNSCH PRN PRN Reason: SEE LABEL COMMENTS Doxazosin Mesylate (Cardura) 2 mg PO HS [facility] Last Admin: 10/18/17 21:13 Dose: 2 mg Escitalopram Oxalate (Lexapro) 10 mg PO DAILY [facility] Last Admin: 10/19/17 08:23 Dose: 10 mg Gelatin (Gelfoam 12 Mm/7 Mm Topical) 1 foam TOPICAL PRN PRN PRN Reason: help stop bleeding from site Gentamicin Sulfate (Gentamicin Inj) 20 mg OTHER WITH DIALYSIS PRN PRN Reason: Dwell Gentamycin Lock Last Admin: 10/18/17 12:22 Dose: 20 mg Heparin Sodium (Porcine) (Heparin Inj) 8,000 units OTHER WITH DIALYSIS PRN PRN Reason: for machine prime Heparin Sodium (Porcine) (Heparin Inj) 1,000 units OTHER WITH DIALYSIS PRN PRN Reason: Dwell Heparin to Fill Catheter Last Admin: 10/18/17 12:23 Dose: 1,000 units Albumin Human (Flexbumin 25% Inj) 100 mls @ 60 mls/hr IV.SIG WITH DIALYSIS PRN PRN Reason: hypotension / volume replace Sodium Chloride (Ns Inj) 1,000 mls @ 0 mls/hr OTHER .Q0M PRN PRN Reason: for prime and rinse back Last Infusion: 10/18/17 18:05 Dose: Infused Sodium Chloride (Ns Inj) 1,000 mls @ 200 mls/hr OTHER .Q5H PRN PRN Reason: for dialyzer flush PRN Sodium Chloride (Ns Inj) 1,000 mls @ 0 mls/hr IV.CONT .Q0M PRN PRN Reason: hypotension / volume replace Lactulose (Lactulose Liq) 30 ml PO DAILY PRN PRN Reason: SEVERE CONSITIPATION Lisinopril (Prinivil) 20 mg PO BID [facility] Last Admin: 10/19/17 08:24 Dose: 20 mg Lorazepam (Ativan Inj) 1 mg IV.PUSH Q6H PRN PRN Reason: anxiety (hold for sedation) Last Admin: 10/18/17 18:46 Dose: 1 mg Metoprolol Tartrate (Lopressor) 25 mg PO DAILY [facility] Last Admin: 10/19/17 08:24 Dose: 25 mg Minoxidil (Loniten) 5 mg PO DAILY [facility] Nifedipine (Procardia Xl) 60 mg PO DAILY [facility] Last Admin: 10/19/17 08:23 Dose: 60 mg Nitroglycerin (Nitrostat Sl) 0.4 mg SL Q5M PRN PRN Reason: CHEST PAIN Ondansetron HCl (Zofran Inj) 4 mg IV.PUSH UNSCH PRN PRN Reason: NAUSEA OR VOMITING Ondansetron HCl (Zofran Inj) 4 mg IV.PUSH Q6H PRN PRN Reason: NAUSEA OR VOMITING Senna/Docusate Sodium (Elizabeth-Colace) 1 tab PO BID [facility] Last Admin: 10/19/17 08:23 Dose: 1 tab Sennosides (Senokot) 17.2 mg PO Q12H PRN PRN Reason: Moderate Constipation Sodium Chloride (Ns Flush) 2 ml IV.FLUSH UNSCH PRN PRN Reason: FLUSH AFTER USING IV ACCESS Sodium Chloride (Ns Flush) 5 ml IV.FLUSH PRN PRN PRN Reason: flush each lumen during HD Zolpidem Tartrate (Ambien) 10 mg PO HS PRN PRN Reason: INSOMNIA Last Admin: 10/18/17 21:16 Dose: 10 mg Exam Vital signs: Vital Signs 10/18/17 11:00 10/18/17 12:00 10/18/17 13:00 Temperature 98.6 F Pulse Rate 75 60 66 Respiratory Rate 18 Blood Pressure 197/85 H Pulse Oximetry 94 L 10/18/17 14:00 10/18/17 15:00 10/18/17 16:00 Temperature 98.3 F Pulse Rate 56 L 56 L 54 L Respiratory Rate 18 Blood Pressure 196/88 H Pulse Oximetry 95 10/18/17 17:00 10/18/17 17:28 10/18/17 18:00 Temperature Pulse Rate 54 L 58 L Respiratory Rate Blood Pressure Pulse Oximetry 95 10/18/17 19:00 10/18/17 20:00 10/18/17 21:00 Temperature 98.0 F Pulse Rate 54 L 58 L 60 Respiratory Rate 16 Blood Pressure 171/91 H Pulse Oximetry 93 L 10/18/17 22:00 10/18/17 23:00 10/19/17 00:00 Temperature 98.1 F Pulse Rate 60 64 60 Respiratory Rate 16 Blood Pressure 176/89 H Pulse Oximetry 92 L 10/19/17 01:00 10/19/17 02:00 10/19/17 03:00 Temperature 97.7 F Pulse Rate 64 62 59 L Respiratory Rate 16 Blood Pressure 153/66 H Pulse Oximetry 93 L 10/19/17 04:00 10/19/17 05:00 10/19/17 06:00 Temperature Pulse Rate 63 59 L 61 Respiratory Rate Blood Pressure Pulse Oximetry 10/19/17 07:00 10/19/17 08:00 10/19/17 10:24 Temperature 98.4 F Pulse Rate 66 61 Respiratory Rate 18 Blood Pressure 184/86 H Pulse Oximetry 92 L 91 L Intake & Output 10/18/17 10/19/17 10/19/17 18:59 06:59 18:59 Intake Total 1605 / 1605 720 / 720 Output Total 1999 Balance 1605 / 1605 -1280 / -1280 Weight 66.5 kg Intake: IV 1005 / 1005 NS Inj 1,000 ML @ As Directed 1000 / 1000 OTHER .Q0M PRN Rx#:[id number] Oral 600 / 600 720 / 720 Output: Urine 0 / 0 Hemodialysis Amount 1999 Other: Date of Last Bowel Movement 10/17/17 10/17/17 Results - Lab Results 10/19/17 05:45 10/19/17 05:45 Most recent lab results Calcium 7.7 mg/dL (8.5-10.1) L 10/19/17 05:45 Phosphorus 4.6 mg/dL (2.5-4.9) 10/19/17 05:45 Assessment and Plan - Assessment (1) ESRD (end stage renal disease) on dialysis Code(s): N18.6 - End stage renal disease; Z99.2 - Dependence on renal dialysis Status: Acute (2) Hypertension Code(s): I10 - Essential (primary) hypertension Status: Acute - Attending Attestation The exam, history, and the medical decision-making described in the above note were completed with the assistance of the PRICILA. I reviewed and agree with the findings presented. I attest that I had a [id number] encounter with the patient on the same day, and personally performed and documented my assessment and findings in the medical record. Patient counseled regarding need for compliance with fluid and salt restriction especially status post nephrectomy of his solitary kidney. Patient has no residual kidney function presently. He is also agreeable to be evaluated for an AV dialysis fistula which was previously recommended but refused. Will have to increase his dialysis time to 4 hours as an outpatient as discussed with him in view of loss of residual kidney function and high fluid gains by patient as an outpatient. He is also agreeable to this.
[2017-10-18] MEDS: Heparin 10,000 UNITS/10 ML Vial (for IV use) OTHER PRN (12:23)
--- NOTE | 2017-10-18 13:35 | ECG ---
Date Performed: 10/17/2017 Time Performed: 16:08:15 PTAGE: 76 years EKG: SINUS BRADYCARDIA WITH SINUS ARRHYTHMIA MARKED LEFT AXIS DEVIATION PROLONGED QT INTERVAL AB NORMAL ECG NO PREVIOUS TRACING DOCTOR: Casi Tamayo Interpretating Date/Time 10/18/2017 13:34:14
[2017-10-18] MEDS: hydrALAZINE 50 MG Tablet PO SCH ×3 (13:51→21:13)
[2017-10-18] MEDS: Escitalopram 10 MG Tablet PO SCH (13:52)
[2017-10-18] MEDS: Lisinopril 20 MG Tablet PO SCH ×2 (13:52→21:13)
[2017-10-18] MEDS: Metoprolol Tartrate 25 MG Tablet PO SCH (13:52)
[2017-10-18] MEDS: Senna/Docusate Sodium 8.6/50 MG Tablet PO SCH ×2 (13:52→21:12)
--- NOTE | 2017-10-18 15:14 | P.PNIM ---
Subjective Interval history: Pts BP readings this morning were still elevated with systolic in the 170's Pts reported BP readings in HD were much improved with systolic into the 130's BP at noon and at 1600 today were recorded as systolic in the 190s but he did not get his morning dose of medications until almost 1400 today and the Procardia was given at 1540 His previous ARNDT is improving Denies any chest pain or SOB Physical Exam Vital signs: Vital Signs 10/17/17 16:15 10/17/17 17:52 10/17/17 17:55 Temperature Pulse Rate 55 L 55 L Respiratory Rate 19 19 19 Blood Pressure 233/93 H Pulse Oximetry 95 10/17/17 19:02 10/17/17 23:31 10/17/17 23:33 Temperature 97.6 F Pulse Rate 64 62 Respiratory Rate 18 18 16 Blood Pressure 191/86 H 205/89 H Pulse Oximetry 98 92 L 10/18/17 00:28 10/18/17 01:04 10/18/17 01:48 Temperature 97.6 F Pulse Rate 56 L Respiratory Rate 20 16 Blood Pressure 169/79 H Pulse Oximetry 93 L 93 L 10/18/17 04:00 10/18/17 07:15 10/18/17 08:00 Temperature 97.6 F 98.4 F Pulse Rate 61 52 L 52 L Respiratory Rate 16 18 Blood Pressure 197/76 H 175/83 H Pulse Oximetry 92 L 100 Intake & Output 10/17/17 10/18/17 10/18/17 18:59 06:59 18:59 Intake Total 720 / 720 5 / 5 Output Total 4300 / 4300 Balance -3580 / -3580 5 / Weight 65.317 kg 65.3 kg Intake: IV 5 / 5 Oral 720 / 720 Output: Urine 2300 / 2300 Hemodialysis Amount 1999 / 1999 Other: Date of Last Bowel Movement 10/17/17 Narrative: GENERAL: NAD, AAOx3 CARDIO: Regular, diana RESP: Breath sounds equal bilaterally. No accessory muscle use. ABD: +BS, soft, non-tender, nondistended. EXT: No cyanosis, or edema. Results - Labs CBC & Chem 7: 10/19/17 05:45 10/20/17 05:53 Laboratory Results - last 24 hr 10/17/17 10/17/17 10/17/17 16:02 16:02 16:02 WBC 5.1 RBC 3.28 L Hgb 10.5 L Hct 31.7 L MCV 96.5 MCH 32.1 MCHC 33.2 RDW 15.0 Plt Count 160 MPV 8.2 Neut % (Auto) 66.7 Lymph % (Auto) 22.0 [place] % (Auto) 6.6 Eos % (Auto) 3.1 Baso % (Auto) 1.6 Neut # (Auto) 3.4 Lymph # (Auto) 1.1 [place] # (Auto) 0.3 Eos # (Auto) 0.2 Baso # (Auto) 0.1 WBC Differential . Differential Comment Auto diff final PT 11.4 INR 1.1 APTT 26.7 Sodium 140 Potassium 5.8 H Chloride 103 Carbon Dioxide 20.8 L Anion Gap 16 H BUN 57 H Creatinine 8.90 H Estimated GFR 6 L Random Glucose 78 Calcium 8.4 L Total Bilirubin 0.4 AST 11 L ALT 23 Alkaline Phosphatase 134 H Troponin I 0.05 B-Natriuretic Peptide Total Protein 7.1 Albumin 3.7 Hepatitis A IgM Ab Hep Bs Antigen Hep B Core IgM Ab Hep C IgG Ab 10/17/17 10/17/17 10/18/17 16:02 19:39 05:08 WBC RBC Hgb Hct MCV MCH MCHC RDW Plt Count MPV Neut % (Auto) Lymph % (Auto) [place] % (Auto) Eos % (Auto) Baso % (Auto) Neut # (Auto) Lymph # (Auto) [place] # (Auto) Eos # (Auto) Baso # (Auto) WBC Differential Differential Comment PT INR APTT Sodium 141 Potassium 3.6 D Chloride 100 Carbon Dioxide 30.3 D Anion Gap 11 BUN 34 H Creatinine 6.46 H Estimated GFR 8 L Random Glucose 124 H Calcium 7.7 L Total Bilirubin AST ALT Alkaline Phosphatase Troponin I B-Natriuretic Peptide Greater than 5000 H Total Protein Albumin Hepatitis A IgM Ab Nonreactive Hep Bs Antigen Nonreactive Hep B Core IgM Ab Nonreactive Hep C IgG Ab Nonreactive 10/18/17 05:08 WBC 4.7 RBC 2.83 L Hgb 9.2 L Hct 26.8 L MCV 94.9 MCH 32.4 MCHC 34.2 RDW 14.7 Plt Count 140 L MPV 8.2 Neut % (Auto) 67.8 Lymph % (Auto) 17.8 [place] % (Auto) 10.0 H Eos % (Auto) 3.1 Baso % (Auto) 1.3 Neut # (Auto) 3.2 Lymph # (Auto) 0.8 L [place] # (Auto) 0.5 Eos # (Auto) 0.1 Baso # (Auto) 0.1 WBC Differential . Differential Comment Auto diff final PT INR APTT Sodium Potassium Chloride Carbon Dioxide Anion Gap BUN Creatinine Estimated GFR Random Glucose Calcium Total Bilirubin AST ALT Alkaline Phosphatase Troponin I B-Natriuretic Peptide Total Protein Albumin Hepatitis A IgM Ab Hep Bs Antigen Hep B Core IgM Ab Hep C IgG Ab - Imaging Impressions Chest CTA 10/17/17 15:42 CONCLUSION: 1. No evidence of pulmonary embolus. 2. Moderate severity pulmonary emphysema. 3. Coronary artery calcification. 4. Possible pulmonary arterial hypertension. Assessment and Plan - Assessment (1) Fluid overload Code(s): E87.70 - Fluid overload, unspecified Status: Acute Plan: ESRD on HD Fluid overload Hyperkalemia - Pt is a 76 y/o male with ESRD on HD. He presented to the ED on 10/17/17 with complaints of uncontrolled HTN and headache. He underwent right nephrectomy about 3 weeks ago for RCC and previously had left nephrectomy about 15 years ago for the same dx. He has been on dialysis now for approximately 3 months. - He has been having worsening BP since his nephrectomy and adjustments have been made as of recent, per the Nephrology note: - He is currently taking Lisinopril 20mg BID (increased from QD on 10/01/17), Hydralazine 50mg BID (25mg BID started 10/08 and was increased to 50mg BID 10/12) , Doxazosin 2mg HS, and Toprol XL 25mg QD. - Nephrology was consulted at admission. - Pt received HD last night for hyperkalemia and went for his regular M-W-F HD today via [facility] - Pt is on low K+ diet. - DVT prophylaxis with SCDs Hypertension - Pts Hydralazine has been increased to 50mg TID. - Pt has been continued on Lisinopril 20mg BID, Metoprolol 25mg QD, and Doxazosin 2mg HS. - Procardia XL 60mg added on 10/18/17 - BP still significantly elevated today with BP at noon and at 1600 today were recorded as systolic in the 190s but he did not get his morning dose of medications until almost 1400 today and the Procardia was given at 1540 - Clonidine PRN - Check EKG now and in AM - Monitor BP and adjust further if needed. - Pt reports he recently underwent cardiac eval at [facility] in preparation for nephrectomy. (2) Pulmonary edema Code(s): J81.1 - Chronic pulmonary edema Status: Acute (3) Hypertensive crisis Code(s): I16.9 - Hypertensive crisis, unspecified Status: Acute (4) Acute hyperkalemia Code(s): E87.5 - Hyperkalemia Status: Acute - Attending Attestation Patient examined. Assessment and plan formulated with Tiana Herring PA-C. I agree with the above.
[2017-10-19] MEDS: hydrALAZINE 50 MG Tablet PO SCH (05:01)
[2017-10-19 06:47] LABS: Baso # (Auto) 0.1 th/mm3 (0.0-0.2); Baso % (Auto) 1.2 % (0.0-2.0); Eos # (Auto) 0.3 th/mm3 (0.0-0.4); Eos % (Auto) 5.7 % (0.0-4.0); Hematocrit 27.4 % (39.0-51.0); Hemoglobin 9.4 gm/dL (13.0-17.0); Lymph # (Auto) 1.2 th/mm3 (1.0-4.8); Lymph % (Auto) 26.1 % (9.0-44.0); Mean Corpuscular HGB Conc 34.2 % (32.0-36.0); Mean Corpuscular Hemoglobin 32.3 pg (27.0-34.0); Mean Corpuscular Volume 94.3 fL (80.0-100.0); Mean Platelet Volume 8.2 fL (7.0-11.0); Mono # (Auto) 0.5 th/mm3 (0.0-0.9); Mono % (Auto) 10.2 % (0.0-8.0); Neut # (Auto) 2.7 th/mm3 (1.8-7.7); Neut % (Auto) 56.8 % (16.0-70.0); Platelet Count 133 th/mm3 (150-450); Red Blood Count 2.91 mil/mm3 (4.50-5.90); Red Cell Distribution Width 14.7 % (11.6-17.2); White Blood Count 4.7 th/mm3 (4.0-11.0)
[2017-10-19 07:05] LABS: Albumin 3.1 g/dL (3.4-5.0); Calcium 7.7 mg/dL (8.5-10.1); Carbon Dioxide 29.7 meq/L (21.0-32.0); Phosphorus 4.6 mg/dL (2.5-4.9)
[2017-10-19] MEDS: Senna/Docusate Sodium 8.6/50 MG Tablet PO SCH ×2 (08:23→20:24)
[2017-10-19] MEDS: Escitalopram 10 MG Tablet PO SCH (08:23)
[2017-10-19] MEDS: Lisinopril 20 MG Tablet PO SCH ×2 (08:24→20:25)
[2017-10-19] MEDS: Metoprolol Tartrate 25 MG Tablet PO SCH (08:24)
[2017-10-19] MEDS ORDERED: hydrALAZINE 50 MG Tablet PO SCH (10:15)
--- NOTE | 2017-10-19 10:49 | P.PNNP ---
Subjective Interval history: Respirations improved. Patient indicated that he developed a headache about 4 days ago after hydralazine was increased in dosage. Otherwise no verbal complaints currently. Physical Exam Vital signs: Vital Signs 10/18/17 11:00 10/18/17 12:00 10/18/17 13:00 Temperature 98.6 F Pulse Rate 75 60 66 Respiratory Rate 18 Blood Pressure 197/85 H Pulse Oximetry 94 L 10/18/17 14:00 10/18/17 15:00 10/18/17 16:00 Temperature 98.3 F Pulse Rate 56 L 56 L 54 L Respiratory Rate 18 Blood Pressure 196/88 H Pulse Oximetry 95 10/18/17 17:00 10/18/17 17:28 10/18/17 18:00 Temperature Pulse Rate 54 L 58 L Respiratory Rate Blood Pressure Pulse Oximetry 95 10/18/17 19:00 10/18/17 20:00 10/18/17 21:00 Temperature 98.0 F Pulse Rate 54 L 58 L 60 Respiratory Rate 16 Blood Pressure 171/91 H Pulse Oximetry 93 L 10/18/17 22:00 10/18/17 23:00 10/19/17 00:00 Temperature 98.1 F Pulse Rate 60 64 60 Respiratory Rate 16 Blood Pressure 176/89 H Pulse Oximetry 92 L 10/19/17 01:00 10/19/17 02:00 10/19/17 03:00 Temperature 97.7 F Pulse Rate 64 62 59 L Respiratory Rate 16 Blood Pressure 153/66 H Pulse Oximetry 93 L 10/19/17 04:00 10/19/17 05:00 10/19/17 06:00 Temperature Pulse Rate 63 59 L 61 Respiratory Rate Blood Pressure Pulse Oximetry 10/19/17 07:00 10/19/17 08:00 10/19/17 10:24 Temperature 98.4 F Pulse Rate 66 61 Respiratory Rate 18 Blood Pressure 184/86 H Pulse Oximetry 92 L 91 L Intake & Output 10/18/17 10/19/17 10/19/17 18:59 06:59 18:59 Intake Total 1605 / 1605 720 / 720 Output Total 1999 / 1999 Balance 1605 / 1605 -1280 / -1280 Weight 66.5 kg Intake: IV 1005 / 1005 NS Inj 1,000 ML @ As Directed 1000 / 1000 OTHER .Q0M PRN Rx#:[id number] Oral 600 / 600 720 / 720 Output: Urine 0 / 0 Hemodialysis Amount 1999 Other: Date of Last Bowel Movement 10/17/17 10/17/17 Narrative: GENERAL: Patient lying in bed no respiratory distress. SKIN: Warm and dry. HEAD: Normocephalic. EYES: No scleral icterus. No injection or drainage. NECK: Supple, trachea midline. No JVD or lymphadenopathy. CARDIOVASCULAR: Regular rate and rhythm without murmurs, gallops, or rubs. RESPIRATORY: Breath sounds equal bilaterally. No accessory muscle use. GASTROINTESTINAL: Abdomen soft, non-tender, nondistended. MUSCULOSKELETAL: No cyanosis, or edema. Assessment and Plan - Assessment (1) ESRD (end stage renal disease) on dialysis Code(s): N18.6 - End stage renal disease; Z99.2 - Dependence on renal dialysis Status: Acute Plan: Consult vascular surgery to initiate evaluation for future placement of an AV dialysis fistula. Unsure of headache is related to hydralazine. Will however discontinue hydralazine and switched to minoxidil 5 mg daily initially. If blood pressure still remaining significantly elevated will increase Procardia XL to twice daily dosage 60 mg. Next hemodialysis tomorrow as per outpatient schedule. Medications should be adjusted for the patient's ESRD. Avoid gadolinium. (2) Hypertension Code(s): I10 - Essential (primary) hypertension Status: Acute Plan: As above. Discussed salt restrictions. Pt reports he underwent cardiac eval recently at [facility] in preparation for nephrectomy.
[2017-10-19] MEDS ORDERED: Sod Chloride 0.9% Inj 1,000 ML OTHER PRN ×2 (10:51)
[2017-10-19] MEDS ORDERED: Sod Chloride 0.9% Inj 1,000 ML IV.CONT PRN (10:51)
[2017-10-19] MEDS ORDERED: Heparin 10,000 UNITS/10 ML Vial (for IV use) OTHER PRN (10:51)
--- NOTE | 2017-10-19 11:20 | P.CONVS ---
History of Present Illness Service: Vascular surgery Consult date: 10/19/17 Requesting Physician: Karen Benítez Reason for Consult: AVF Primary Care Provider: UNKNOWN Chief Complaint: Headache, elevated BP History of Present Illness: 76 yo male with ESRD s/p B nephrectomy 12 years ago and 3 weeks ago for malignancy. On HD now via chest catheter. Adm for ARNDT and HTN. Needs permanent access. Pt debating about continuing catheter usage in anticipation of LRD transplant. Currently being evaluated at another facility. Review of Systems Constitutional: Denies chills, Denies fatigue Cardiovascular: Denies chest pain Respiratory: Reports shortness of breath with activity PMFSH - History History Provided By: Patient - Medical History Medical History: Medical History (Last Reviewed 10/19/17 @ 11:18 by Robel Brooks MD) ESRD (end stage renal disease) on dialysis HTN (hypertension) S/p nephrectomy - Surgical History Surgical History: Surgical History (Last Reviewed 10/19/17 @ 11:18 by Robel Brooks MD) H/O laminectomy - Tobacco History Second Hand Smoke Exposure: No Tobacco Use In Past 30 Days: No Smoking Status: Former smoker Tobacco Type: Cigarettes - Alcohol History How Often Do You Have a Drink Containing Alcohol: Never - Substance Use History Substance History: No History of Abuse - Travel History Recent Travel in the [place] Within the Last 8 Weeks: No Recent Travel Out of the Country Within the Last 8 Weeks: No - Immunization History Tetanus Immunization: Unsure Hx Influenza Vaccine This Season: Unable to Assess Medications and Allergies Active Medications: Active Medications Hydrocodone Bitart/Acetaminophen ([place] 5/325) 1 tab PO Q4H PRN PRN Reason: pain 3-10 Last Admin: 10/19/17 09:36 Dose: 1 tab Al Hydroxide/Mg Hydroxide (Milk Of Romina Liq) 30 ml PO Q12H PRN PRN Reason: Mild Constipation Atorvastatin Calcium (Lipitor) 40 mg PO DAILY JULIANN Last Admin: 10/19/17 08:24 Dose: 40 mg Bisacodyl (Dulcolax Supp) 10 mg RECTAL DAILY PRN PRN Reason: SEVERE CONSITIPATION Clonidine HCl (Catapres) 0.1 mg PO UNSCH PRN PRN Reason: SEE LABEL COMMENTS Diphenhydramine HCl (Benadryl) 25 mg PO UNSCH PRN PRN Reason: SEE LABEL COMMENTS Doxazosin Mesylate (Cardura) [address] [facility] Last Admin: 10/18/17 21:13 Dose: 2 mg Escitalopram Oxalate (Lexapro) 10 mg PO DAILY [facility] Last Admin: 10/19/17 08:23 Dose: 10 mg Gelatin (Gelfoam 12 Mm/7 Mm Topical) 1 foam TOPICAL PRN PRN PRN Reason: help stop bleeding from site Gentamicin Sulfate (Gentamicin Inj) 20 mg OTHER WITH DIALYSIS PRN PRN Reason: Dwell Gentamycin Lock Last Admin: 10/18/17 12:22 Dose: 20 mg Heparin Sodium (Porcine) (Heparin Inj) 8,000 units OTHER WITH DIALYSIS PRN PRN Reason: for machine prime Heparin Sodium (Porcine) (Heparin Inj) 1,000 units OTHER WITH DIALYSIS PRN PRN Reason: Dwell Heparin to Fill Catheter Last Admin: 10/18/17 12:23 Dose: 1,000 units Heparin Sodium (Porcine) (Heparin Inj) 8,000 units OTHER WITH DIALYSIS PRN PRN Reason: for machine prime Albumin Human (Flexbumin 25% Inj) 100 mls @ 60 mls/hr IV.SIG WITH DIALYSIS PRN PRN Reason: hypotension / volume replace Sodium Chloride (Ns Inj) 1,000 mls @ 0 mls/hr OTHER .Q0M PRN PRN Reason: for prime and rinse back Last Infusion: 10/18/17 18:05 Dose: Infused Sodium Chloride (Ns Inj) 1,000 mls @ 200 mls/hr OTHER .Q5H PRN PRN Reason: for dialyzer flush PRN Sodium Chloride (Ns Inj) 1,000 mls @ 0 mls/hr IV.CONT .Q0M PRN PRN Reason: hypotension / volume replace Sodium Chloride (Ns Inj) 1,000 mls @ 200 mls/hr OTHER .Q5H PRN PRN Reason: for dialyzer flush PRN Sodium Chloride (Ns Inj) 1,000 mls @ 0 mls/hr IV.CONT .Q0M PRN PRN Reason: hypotension / volume replace Sodium Chloride (Ns Inj) 1,000 mls @ 0 mls/hr OTHER .Q0M PRN PRN Reason: for prime and rinse back Lactulose (Lactulose Liq) 30 ml PO DAILY PRN PRN Reason: SEVERE CONSITIPATION Lisinopril (Prinivil) 20 mg PO BID [facility] Last Admin: 10/19/17 08:24 Dose: 20 mg Lorazepam (Ativan Inj) 1 mg IV.PUSH Q6H PRN PRN Reason: anxiety (hold for sedation) Last Admin: 10/18/17 18:46 Dose: 1 mg Metoprolol Tartrate (Lopressor) 25 mg PO DAILY [facility] Last Admin: 10/19/17 08:24 Dose: 25 mg Minoxidil (Loniten) 5 mg PO DAILY [facility] Nifedipine (Procardia Xl) 60 mg PO DAILY [facility] Last Admin: 10/19/17 08:23 Dose: 60 mg Nitroglycerin (Nitrostat Sl) 0.4 mg SL Q5M PRN PRN Reason: CHEST PAIN Ondansetron HCl (Zofran Inj) 4 mg IV.PUSH UNSCH PRN PRN Reason: NAUSEA OR VOMITING Ondansetron HCl (Zofran Inj) 4 mg IV.PUSH Q6H PRN PRN Reason: NAUSEA OR VOMITING Senna/Docusate Sodium (Elizabeth-Colace) 1 tab PO BID [facility] Last Admin: 10/19/17 08:23 Dose: 1 tab Sennosides (Senokot) 17.2 mg PO Q12H PRN PRN Reason: Moderate Constipation Sodium Chloride (Ns Flush) 2 ml IV.FLUSH UNSCH PRN PRN Reason: FLUSH AFTER USING IV ACCESS Sodium Chloride (Ns Flush) 5 ml IV.FLUSH PRN PRN PRN Reason: flush each lumen during HD Sodium Chloride (Ns Flush) 5 ml IV.FLUSH PRN PRN PRN Reason: flush each lumen during HD Zolpidem Tartrate (Ambien) 10 mg PO HS PRN PRN Reason: INSOMNIA Last Admin: 10/18/17 21:16 Dose: 10 mg Allergies Allergy/AdvReac Type Severity Reaction Status Date / Time No Known Allergies Allergy Unverified 10/17/17 14:46 Home Medications Medication Instructions Recorded Confirmed Type doxazosin 2 mg PO HS 10/17/17 10/17/17 History escitalopram oxalate [Lexapro] 10 mg PO DAILY 10/17/17 10/17/17 History hydralazine 50 mg PO BID 10/17/17 10/17/17 History hydrocodone-acetaminophen 1 tab PO Q4-6H PRN 10/17/17 10/17/17 History lisinopril 20 mg PO BID 10/17/17 10/17/17 History metoprolol tartrate 25 mg PO DAILY 10/17/17 10/17/17 History simvastatin 40 mg PO BID 10/17/17 10/17/17 History zolpidem [Ambien] 10 mg PO PRN 10/17/17 10/17/17 History Physical Exam Vital Signs / I&O: Vital Signs 10/18/17 12:00 10/18/17 13:00 10/18/17 14:00 Temperature 98.6 F Pulse Rate 60 66 56 L Respiratory Rate 18 Blood Pressure 197/85 H Pulse Oximetry 94 L 10/18/17 15:00 10/18/17 16:00 10/18/17 17:00 Temperature 98.3 F Pulse Rate 56 L 54 L 54 L Respiratory Rate 18 Blood Pressure 196/88 H Pulse Oximetry 95 10/18/17 17:28 10/18/17 18:00 10/18/17 19:00 Temperature Pulse Rate 58 L 54 L Respiratory Rate Blood Pressure Pulse Oximetry 95 10/18/17 20:00 10/18/17 21:00 10/18/17 22:00 Temperature 98.0 F Pulse Rate 58 L 60 60 Respiratory Rate 16 Blood Pressure 171/91 H Pulse Oximetry 93 L 10/18/17 23:00 10/19/17 00:00 10/19/17 01:00 Temperature 98.1 F Pulse Rate 64 60 64 Respiratory Rate 16 Blood Pressure 176/89 H Pulse Oximetry 92 L 10/19/17 02:00 10/19/17 03:00 10/19/17 04:00 Temperature 97.7 F Pulse Rate 62 59 L 63 Respiratory Rate 16 Blood Pressure 153/66 H Pulse Oximetry 93 L 10/19/17 05:00 10/19/17 06:00 10/19/17 07:00 Temperature Pulse Rate 59 L 61 66 Respiratory Rate Blood Pressure Pulse Oximetry 10/19/17 08:00 10/19/17 10:24 Temperature 98.4 F Pulse Rate 61 Respiratory Rate 18 Blood Pressure 184/86 H Pulse Oximetry 92 L 91 L Intake & Output 10/18/17 10/19/17 10/19/17 18:59 06:59 18:59 Intake Total 1605 / 1605 720 / 720 Output Total 1999 / 1999 Balance 1605 / 1605 -1280 / -1280 Weight 66.5 kg Intake: IV 1005 / 1005 NS Inj 1,000 ML @ As Directed 1000 / 1000 OTHER .Q0M PRN Rx#:[id number] Oral 600 / 600 720 / 720 Output: Urine 0 / 0 Hemodialysis Amount 1999 Other: Date of Last Bowel Movement 10/17/17 10/17/17 Neuro: walking in hallway, no neuro deficits HEENT: NC/AT, anicteric sclera Neck: no JVD Heart: reg rate Lungs: nonlabored Vascular: palp UE pulses Laboratory Results - last 24 hr 10/19/17 10/19/17 05:45 05:45 WBC 4.7 RBC 2.91 L Hgb 9.4 L Hct 27.4 L MCV 94.3 MCH 32.3 MCHC 34.2 RDW 14.7 Plt Count 133 L MPV 8.2 Neut % (Auto) 56.8 Lymph % (Auto) 26.1 [place] % (Auto) 10.2 H Eos % (Auto) 5.7 H Baso % (Auto) 1.2 Neut # (Auto) 2.7 Lymph # (Auto) 1.2 [place] # (Auto) 0.5 Eos # (Auto) 0.3 Baso # (Auto) 0.1 WBC Differential . Differential Comment Auto diff final Sodium 141 Potassium 4.0 Chloride 101 Carbon Dioxide 29.7 Anion Gap 10 BUN 27 H Creatinine 5.61 H Estimated GFR 10 L Random Glucose 91 Calcium 7.7 L Phosphorus 4.6 Albumin 3.1 L D Impressions Chest X-Ray 10/17/17 14:35 CONCLUSION: 1. Right-sided dual-lumen IJ central venous catheter in place. 2. No evidence of pneumothorax. Chest CTA 10/17/17 15:42 CONCLUSION: 1. No evidence of pulmonary embolus. 2. Moderate severity pulmonary emphysema. 3. Coronary artery calcification. 4. Possible pulmonary arterial hypertension. Assessment and Plan - Plan ESRD needs HD access Can f/u in clinic and I will arrange AVF evaluation. Save LEFT arm. Defer to the patient and nephrology about continuation of catheter, but I'd favor moving forward with AVF given chance of no LRD, catheter infection, etc. Pt wants to see me as outpatient and I am fine with that. Robel Brooks MD FACS VI site acquisition specialist [facility] and Vascular Surgery at [facility] [phone]
[2017-10-19] MEDS: Minoxidil 2.5 MG Tablet PO SCH (14:03)
--- NOTE | 2017-10-19 14:59 | P.PNIM ---
Subjective Interval history: No new complaints. Physical Exam Vital signs: 10/19/17 10:24 10/19/17 11:00 10/19/17 12:00 Temperature 98.6 F Pulse Rate 66 56 L Respiratory Rate 18 Blood Pressure 172/83 H Pulse Oximetry 91 L 99 Narrative: GENERAL: This is a well-nourished, well-developed patient, in no apparent distress. CARDIOVASCULAR: Regular rate and rhythm without murmurs, gallops, or rubs. RESPIRATORY: Clear to auscultation. Breath sounds equal bilaterally. No wheezes , rales, or rhonchi. GASTROINTESTINAL: Abdomen soft, non-tender, nondistended. Normal active bowel sounds MUSCULOSKELETAL: Extremities without clubbing, cyanosis, or edema. NEURO: Alert & Oriented x4 to person, place, time, situation. Moves all ext x4 Results - Labs CBC & Chem 7: 10/19/17 05:45 10/20/17 05:53 - Imaging Chest X-Ray 10/17/17 14:35 CONCLUSION: 1. Right-sided dual-lumen IJ central venous catheter in place. 2. No evidence of pneumothorax. Chest CTA 10/17/17 15:42 CONCLUSION: 1. No evidence of pulmonary embolus. 2. Moderate severity pulmonary emphysema. 3. Coronary artery calcification. 4. Possible pulmonary arterial hypertension. Assessment and Plan - Assessment (1) Fluid overload Code(s): E87.70 - Fluid overload, unspecified Status: Acute Plan: ESRD on HD Fluid overload Hyperkalemia - Pt is a 76 y/o male with ESRD on HD. He presented to the ED on 10/17/17 with complaints of uncontrolled HTN and headache. He underwent right nephrectomy about 3 weeks ago for RCC and previously had left nephrectomy about 15 years ago for the same dx. He has been on dialysis now for approximately 3 months. - He has been having worsening BP since his nephrectomy and adjustments have been made as of recent, per the Nephrology note: - Upon admission pt taking Lisinopril 20mg BID (increased from QD on 10/01/17), Hydralazine 50mg BID (25mg BID started 10/08 and was increased to 50mg BID 10/12) , Doxazosin 2mg HS, and Toprol XL 25mg QD. - comgmt with Nephrology - Pt received HD hyperkalemia and went for his regular M-W-F HD today via [facility] - Pt is on low K+ diet. - DVT prophylaxis with SCDs - appreciate input from Dr. Brooks, Vascular Surgery. Pt to f/u with Dr. Brooks outpt. Hypertension - Pts Hydralazine has been increased to 50mg TID. - Pt has been continued on Lisinopril 20mg BID, Metoprolol 25mg QD, and Doxazosin 2mg HS. - Procardia XL 60mg increased to BID (10/19) - hydralazine changed to minoxidil (10/19) - Clonidine PRN - Monitor BP and adjust further if needed. - Pt reports he recently underwent cardiac eval at [facility] in preparation for nephrectomy. Paroxysmal Atrial Fibrillation - telemetry - metoprolol Anxiety - ativan prn (2) Pulmonary edema Code(s): J81.1 - Chronic pulmonary edema Status: Acute (3) Hypertensive crisis Code(s): I16.9 - Hypertensive crisis, unspecified Status: Acute (4) Acute hyperkalemia Code(s): E87.5 - Hyperkalemia Status: Acute
--- NOTE | 2017-10-19 16:43 | ECG ---
Date Performed: 10/19/2017 Time Performed: 07:13:18 PTAGE: 76 years EKG: Sinus bradycardia with PACs Possible sequence error: V2,V3 omitted Prolonged QT interval Le ft anterior fascicular block Lateral ST-T changes are nonspecific Abnormal ECG PREVIOUS TRACING : 10/18/2017 17.42 DOCTOR: Tad Albright Interpretating Date/Time 10/19/2017 16:41:21
--- NOTE | 2017-10-19 16:44 | ECG ---
Date Performed: 10/18/2017 Time Performed: 17:42:08 PTAGE: 76 years EKG: Sinus bradycardia Prolonged QT interval Possible left anterior fascicular block Lateral ST- T changes are nonspecific Abnormal ECG PREVIOUS TRACING : 10/17/2017 16.08 DOCTOR: Tad Albright Interpretating Date/Time 10/19/2017 16:41:37
[2017-10-20 07:04] LABS: Calcium 7.7 mg/dL (8.5-10.1); Carbon Dioxide 27.8 meq/L (21.0-32.0); Potassium 4.3 meq/L (3.5-5.1)
--- NOTE | 2017-10-20 09:49 | P.PNVS ---
Subjective Subjective/Hospital Course: 76/M on HD consulted for an AVF creation Pt doing well w/o complaints this am Pt to HD this am Objective Vital Signs / I&O: Vital Signs 10/19/17 10:00 10/19/17 10:24 10/19/17 11:00 Temperature Pulse Rate 58 L 66 Respiratory Rate Blood Pressure Pulse Oximetry 91 L 10/19/17 12:00 10/19/17 13:00 10/19/17 14:00 Temperature 98.6 F Pulse Rate 56 L 52 L 54 L Respiratory Rate 18 Blood Pressure 172/83 H Pulse Oximetry 99 10/19/17 15:00 10/19/17 16:00 10/19/17 17:00 Temperature 98.5 F Pulse Rate 55 L 51 L 60 Respiratory Rate 18 Blood Pressure 178/76 H Pulse Oximetry 94 L 10/19/17 17:42 10/19/17 18:00 10/19/17 19:00 Temperature 99.2 F Pulse Rate 54 L 66 Respiratory Rate 20 Blood Pressure 189/81 H Pulse Oximetry 94 L 95 10/19/17 20:00 10/19/17 21:00 10/19/17 22:00 Temperature Pulse Rate 66 64 64 Respiratory Rate Blood Pressure Pulse Oximetry 95 10/19/17 23:00 10/20/17 00:00 10/20/17 01:00 Temperature 97.9 F Pulse Rate 63 61 64 Respiratory Rate 16 Blood Pressure 173/85 H Pulse Oximetry 95 10/20/17 02:00 10/20/17 03:00 10/20/17 04:00 Temperature 97.4 F L Pulse Rate 64 70 62 Respiratory Rate 16 Blood Pressure 123/64 Pulse Oximetry 90 L 10/20/17 05:00 10/20/17 06:00 10/20/17 07:00 Temperature 98.1 F Pulse Rate 63 74 65 Respiratory Rate 16 Blood Pressure 150/70 H Pulse Oximetry 95 Intake & Output 10/19/17 10/20/17 10/20/17 18:59 06:59 18:59 Intake Total 480 / 480 240 / 240 Balance 480 / 480 240 / 240 Weight 67 kg Intake: Oral 480 / 480 240 / 240 Other: Date of Last Bowel Movement 10/19/17 # Bowel Movements 2 Physical Exam: palpable R/L radial pulses Laboratory Results - last 24 hr 10/20/17 05:53 Sodium 138 Potassium 4.3 Chloride 99 Carbon Dioxide 27.8 Anion Gap 11 BUN 46 H Creatinine 8.10 H Estimated GFR 7 L Random Glucose 95 Calcium 7.7 L Assessment and Plan - Plan 76/M with a PMH ESRD needs HD access No prior hx of access attempts Pt is right handed Plan Discussed and reviewed (hemodialysis) arteriovenous access creation process w/ pt Questions answered Recommend LEFT arm precautions- NO B/P readings or lab draws Pt clear for d/c from a vascular standpoint Arranged out pt f/u in a few weeks Nolvia Oakley NP [facility] [phone]
[2017-10-20] MEDS: Heparin 10,000 UNITS/10 ML Vial (for IV use) OTHER PRN (10:29)
[2017-10-20] MEDS: Senna/Docusate Sodium 8.6/50 MG Tablet PO SCH ×2 (13:26→21:35)
[2017-10-20] MEDS: Lisinopril 20 MG Tablet PO SCH ×2 (13:26→21:35)
[2017-10-20] MEDS: Minoxidil 2.5 MG Tablet PO SCH (13:26)
[2017-10-20] MEDS: Escitalopram 10 MG Tablet PO SCH (13:27)
[2017-10-20] MEDS: Metoprolol Tartrate 25 MG Tablet PO SCH (13:27)
--- NOTE | 2017-10-20 15:46 | P.PNIM ---
Subjective Interval history: Follow up ESRD on HD with volume overload and HTN Patient reports increased anxiety Physical Exam Vital signs: Vital Signs 10/19/17 16:00 10/19/17 17:00 10/19/17 17:42 Temperature Pulse Rate 51 L 60 Respiratory Rate Blood Pressure Pulse Oximetry 94 L 10/19/17 18:00 10/19/17 19:00 10/19/17 20:00 Temperature 99.2 F Pulse Rate 54 L 66 66 Respiratory Rate 20 Blood Pressure 189/81 H Pulse Oximetry 95 95 10/19/17 21:00 10/19/17 22:00 10/19/17 23:00 Temperature 97.9 F Pulse Rate 64 64 63 Respiratory Rate 16 Blood Pressure 173/85 H Pulse Oximetry 95 10/20/17 00:00 10/20/17 01:00 10/20/17 02:00 Temperature Pulse Rate 61 64 64 Respiratory Rate Blood Pressure Pulse Oximetry 10/20/17 03:00 10/20/17 04:00 10/20/17 05:00 Temperature 97.4 F L Pulse Rate 70 62 63 Respiratory Rate 16 Blood Pressure 123/64 Pulse Oximetry 90 L 10/20/17 06:00 10/20/17 07:00 10/20/17 08:00 Temperature 98.1 F Pulse Rate 74 65 64 Respiratory Rate 16 Blood Pressure 150/70 H Pulse Oximetry 95 10/20/17 09:00 10/20/17 10:00 10/20/17 13:29 Temperature Pulse Rate 64 64 Respiratory Rate Blood Pressure Pulse Oximetry 97 10/20/17 15:00 Temperature 98.2 F Pulse Rate 51 L Respiratory Rate 18 Blood Pressure 142/72 H Pulse Oximetry 96 Intake & Output 10/19/17 10/20/17 10/20/17 18:59 06:59 18:59 Intake Total 480 / 480 240 / 240 Output Total 1999 Balance 480 / 480 240 / 240 -1999 Weight 67 kg Intake: Oral 480 / 480 240 / 240 Output: Hemodialysis Amount 1999 Other: Date of Last Bowel Movement 10/19/17 # Bowel Movements 2 Narrative: GENERAL: This is a well-nourished, well-developed patient, in no apparent distress. CARDIOVASCULAR: Regular rate and rhythm without murmurs, gallops, or rubs. RESPIRATORY: Clear to auscultation. Breath sounds equal bilaterally. No wheezes , rales, or rhonchi. GASTROINTESTINAL: Abdomen soft, non-tender, nondistended. Normal active bowel sounds MUSCULOSKELETAL: Extremities without clubbing, cyanosis, or edema. NEURO: Alert & Oriented x4 to person, place, time, situation. Moves all ext x4 Results - Labs CBC & Chem 7: 10/19/17 05:45 10/20/17 05:53 Laboratory Results - last 24 hr 10/20/17 05:53 Sodium 138 Potassium 4.3 Chloride 99 Carbon Dioxide 27.8 Anion Gap 11 BUN 46 H Creatinine 8.10 H Estimated GFR 7 L Random Glucose 95 Calcium 7.7 L Assessment and Plan - Assessment (1) Fluid overload Code(s): E87.70 - Fluid overload, unspecified Status: Acute Plan: ESRD on HD Fluid overload Hyperkalemia - Pt is a 76 y/o male with ESRD on HD. He presented to the ED on 10/17/17 with complaints of uncontrolled HTN and headache. He underwent right nephrectomy about 3 weeks ago for RCC and previously had left nephrectomy about 15 years ago for the same dx. He has been on dialysis now for approximately 3 months. - He has been having worsening BP since his nephrectomy and adjustments have been made as of recent, per the Nephrology note: - Upon admission pt taking Lisinopril 20mg BID (increased from QD on 10/01/17), Hydralazine 50mg BID (25mg BID started 10/08 and was increased to 50mg BID 10/12) , Doxazosin 2mg HS, and Toprol XL 25mg QD. - comgmt with Nephrology - Pt received HD hyperkalemia and went for his regular M-W- HD today via [employer] [facility] [employer] - Pt is on low K+ diet. - DVT prophylaxis with SCDs - appreciate input from Dr. Brooks, Vascular Surgery. Pt to f/u with Dr. Brooks outpt. Hypertension - Pt has been continued on Lisinopril 20mg BID, Metoprolol 25mg QD, and Doxazosin 2mg HS. - Procardia XL 60mg increased to BID (10/19) - hydralazine changed to minoxidil 5 mg daily (10/19) - Clonidine PRN - Monitor BP and adjust further if needed. - Pt reports he recently underwent cardiac eval at [facility] in preparation for nephrectomy. Paroxysmal Atrial Fibrillation - telemetry - metoprolol - Dr. Parra discussed anticoagulation options with Dr. Benítez 10/19 - will start Coumadin 5 mg daily with daily INR Anxiety - ativan prn - increase home Lexapro to 20 mg Daily (2) Pulmonary edema Code(s): J81.1 - Chronic pulmonary edema Status: Acute (3) Hypertensive crisis Code(s): I16.9 - Hypertensive crisis, unspecified Status: Acute (4) Acute hyperkalemia Code(s): E87.5 - Hyperkalemia Status: Acute - Plan Patient examined. Assessment and plan formulated with Adali RIDLEY I agree with the above.
--- NOTE | 2017-10-20 17:24 | P.PNNP ---
Subjective Interval history: Patient apparently developed intermittent atrial fibrillation since yesterday. This was discussed with primary care physician. Anticoagulation has been initiated by primary care physician. Physical Exam Vital signs: Vital Signs 10/19/17 17:42 10/19/17 18:00 10/19/17 19:00 Temperature 99.2 F Pulse Rate 54 L 66 Respiratory Rate 20 Blood Pressure 189/81 H Pulse Oximetry 94 L 95 10/19/17 20:00 10/19/17 21:00 10/19/17 22:00 Temperature Pulse Rate 66 64 64 Respiratory Rate Blood Pressure Pulse Oximetry 95 10/19/17 23:00 10/20/17 00:00 10/20/17 01:00 Temperature 97.9 F Pulse Rate 63 61 64 Respiratory Rate 16 Blood Pressure 173/85 H Pulse Oximetry 95 10/20/17 02:00 10/20/17 03:00 10/20/17 04:00 Temperature 97.4 F L Pulse Rate 64 70 62 Respiratory Rate 16 Blood Pressure 123/64 Pulse Oximetry 90 L 10/20/17 05:00 10/20/17 06:00 10/20/17 07:00 Temperature 98.1 F Pulse Rate 63 74 63 Respiratory Rate 16 Blood Pressure 150/70 H Pulse Oximetry 95 10/20/17 08:00 10/20/17 09:00 10/20/17 10:00 Temperature Pulse Rate 64 64 64 Respiratory Rate Blood Pressure Pulse Oximetry 10/20/17 12:00 10/20/17 13:00 10/20/17 13:29 Temperature Pulse Rate 60 76 Respiratory Rate Blood Pressure Pulse Oximetry 97 10/20/17 14:00 10/20/17 15:00 10/20/17 16:00 Temperature 98.2 F Pulse Rate 58 L 50 L 67 Respiratory Rate 18 Blood Pressure 142/72 H Pulse Oximetry 96 10/20/17 17:00 Temperature Pulse Rate 52 L Respiratory Rate Blood Pressure Pulse Oximetry Intake & Output 10/19/17 10/20/17 10/20/17 18:59 06:59 18:59 Intake Total 480 / 480 240 / 240 Output Total 1999 Balance 480 / 480 240 / 240 -1999 Weight 67 kg Intake: Oral 480 / 480 240 / 240 Output: Hemodialysis Amount 1999 Other: Date of Last Bowel Movement 10/19/17 # Bowel Movements 2 Narrative: GENERAL: Patient with no verbal complaints. Not in respiratory distress. by bedside. SKIN: Warm and dry. HEAD: Normocephalic. EYES: No scleral icterus. No injection or drainage. NECK: Supple, trachea midline. No JVD or lymphadenopathy. CARDIOVASCULAR: Regular rate and rhythm without murmurs, gallops, or rubs. RESPIRATORY: Breath sounds equal bilaterally. No accessory muscle use. GASTROINTESTINAL: Abdomen soft, non-tender, nondistended. MUSCULOSKELETAL: No cyanosis, or edema. Assessment and Plan - Assessment (1) ESRD (end stage renal disease) on dialysis Code(s): N18.6 - End stage renal disease; Z99.2 - Dependence on renal dialysis Status: Acute Plan: Vascular surgical consult appreciated. Plans for placement of AV dialysis fistula as an outpatient. Patient agreeable. Completed his hemodialysis today without difficulty. Plans to increase dialysis time to 4 hours post discharge to improve clearances and fluid removal. Patient also is agreeable in regard to this recommendation. Patient cleared for discharge from renal point of view. (2) Hypertension Code(s): I10 - Essential (primary) hypertension Status: Acute Plan: Blood pressure control has improved since yesterday. Continue current regimen.
[2017-10-20 22:27] LABS: INR 1.1 Ratio; Prothrombin Time 11.1 sec (9.8-11.6)
[2017-10-21 06:02] LABS: INR 1.1 Ratio; Prothrombin Time 11.5 sec (9.8-11.6)
[2017-10-21] MEDS: Lisinopril 20 MG Tablet PO SCH ×2 (08:32→21:12)
[2017-10-21] MEDS: Escitalopram 10 MG Tablet PO SCH (08:33)
[2017-10-21] MEDS: Minoxidil 2.5 MG Tablet PO SCH (08:34)
[2017-10-21] MEDS: Senna/Docusate Sodium 8.6/50 MG Tablet PO SCH ×2 (08:35→21:12)
[2017-10-21] MEDS: Metoprolol Tartrate 25 MG Tablet PO SCH (08:38)
--- NOTE | 2017-10-21 08:56 | P.DS ---
<Adali Oliver W - Last Filed: 10/22/17 10:43> Date of admission: 10/18/17 10:53 Primary care physician: UNKNOWN Attending physician on discharge: Ken Parra Anticipated date of discharge: 10/21/17 Brief History from admission: A very pleasant 76 yo male who underwent right nephrectomy about 3 weeks ago at [facility] for renal cell carcinoma. He also has history of left nephrectomy about 14 years ago for renal cell carcinoma on that side. He has been under dialysis for the past month and a half with Dr. Benítez and receives dialysis MW. He reports he has been having difficulty getting his blood pressure under control and systolic blood pressures are running from 190 into 200s. He was started on hydralazine this past week and several days ago the dose was increased. For the past 3 days he has had mild shortness of breath and headaches with high blood pressure. He came into the ER today as the shortness of breath had worsened and he was afraid he would have a heart attack or stroke. He did not take his hydralazine this morning out of concern it may have been causing the symptoms. In the ED, chest CTA was negative for PE but did show small b/l pleural effusions. Potassium level was 5.8. Blood pressure was initially 233/93. He was taken to dialysis per Dr. Benítez and blood pressure is now 123/80 during dialysis. Patient states he is feeling better. He denied any confusion or vision changes. Denied any chest pain or pressure. Denies any previous cardiac history. DS: Diagnosis - Discharge Diagnosis (1) Fluid overload Status: Acute (2) Pulmonary edema Status: Acute (3) Hypertensive crisis Status: Acute (4) Acute hyperkalemia Status: Acute DS: Medications - Discharge Medications Prescriptions: escitalopram oxalate 20 mg PO DAILY 30 Days #60 tab lorazepam [Ativan] 0.5 mg PO Q8H #20 tab metoprolol tartrate 12.5 mg PO BID 30 Days #30 tab minoxidil 5 mg PO DAILY 30 Days #60 tab nifedipine 30 mg PO BID 30 Days #60 tab warfarin [Coumadin] See Label Instructions .ROUTE .COMPLEX 30 Days #30 tab DS: Summary Hospital Course: ESRD on HD Fluid overload Hyperkalemia - Pt is a 76 y/o male with ESRD on HD. He presented to the ED on 10/17/17 with complaints of uncontrolled HTN and headache. He underwent right nephrectomy about 3 weeks ago for RCC and previously had left nephrectomy about 15 years ago for the same dx. He has been on dialysis now for approximately 3 months. - He has been having worsening BP since his nephrectomy and adjustments have been made as of recent, per the Nephrology note: - Upon admission pt taking Lisinopril 20mg BID (increased from QD on 10/01/17), Hydralazine 50mg BID (25mg BID started 10/08 and was increased to 50mg BID 10/12) , Doxazosin 2mg HS, and Toprol XL 25mg QD. - comgmt with Nephrology - Pt received HD hyperkalemia and went for his regular -- HD today via [facility] - Pt is on low K+ diet. - DVT prophylaxis with SCDs - appreciate input from Dr. Brooks, Vascular Surgery. Pt to f/u with Dr. Brooks outpt. Hypertension - Pt has been continued on Lisinopril 20mg BID, Metoprolol 25mg QD, and Doxazosin 2mg HS. - Procardia XL 60mg increased to BID (10/19) - hydralazine changed to minoxidil 5 mg daily (10/19) - Clonidine PRN - Monitor BP and adjust further if needed. - Pt reports he recently underwent cardiac eval at [facility] in preparation for nephrectomy. - 10/21 patient's HR into the 40s, will stop metoprolol 25 mg daily, start metoprolol 12,5 mg BID tomorrow, decrease Cardizem to 30 mg BID - BP and HR remained stable overnight plan to DC Paroxysmal Atrial Fibrillation - telemetry - metoprolol - Dr. Parra discussed anticoagulation options with Dr. Benítez 10/19 - will start Coumadin 5 mg Wednesday, , Wednesday and Wednesday, 2.5 mg Wednesday , Wednesday and Wednesday - [facility] arranged to assist in monitoring INR after DC, results of INR to go to PCP Dr. Arana - patient to follow up with [facility] cardiology outpatient Anxiety - ativan prn - increase home Lexapro to 20 mg Daily - Time Spent with Patient Total time spent providing and/or coordinating discharge services: Greater than 30 minutes - Quality: VTE Deep Vein Thrombosis/Pulmonary Embolism Present on Admission: No Exam Vital signs: Vital Signs 10/20/17 09:00 08/29/18 10:00 10/20/17 12:00 Temperature Pulse Rate 64 64 60 Respiratory Rate Blood Pressure Pulse Oximetry 10/20/17 13:00 10/20/17 13:29 10/20/17 14:00 Temperature Pulse Rate 76 58 L Respiratory Rate Blood Pressure Pulse Oximetry 97 10/20/17 15:00 10/20/17 16:00 10/20/17 17:00 Temperature 98.2 F Pulse Rate 50 L 67 52 L Respiratory Rate 18 Blood Pressure 142/72 H Pulse Oximetry 96 10/20/17 18:00 10/20/17 19:00 10/20/17 20:00 Temperature 98.4 F Pulse Rate 56 L 51 L 60 Respiratory Rate 18 Blood Pressure 113/70 Pulse Oximetry 98 10/20/17 21:00 10/20/17 22:00 10/20/17 23:00 Temperature 97.9 F Pulse Rate 60 62 55 L Respiratory Rate 18 Blood Pressure 131/50 L Pulse Oximetry 95 10/21/17 00:00 10/21/17 01:00 10/21/17 02:00 Temperature Pulse Rate 54 L 65 61 Respiratory Rate Blood Pressure Pulse Oximetry 10/21/17 03:00 10/21/17 04:00 10/21/17 05:00 Temperature 97.6 F Pulse Rate 56 L 55 L 51 L Respiratory Rate 16 Blood Pressure 126/54 L Pulse Oximetry 95 10/21/17 06:00 10/21/17 07:00 Temperature 97.8 F Pulse Rate 49 L 58 L Respiratory Rate 16 Blood Pressure 138/63 Pulse Oximetry 96 Intake & Output 10/20/17 10/21/17 10/21/17 18:59 06:59 18:59 Intake Total 50 / 50 240 / 240 Output Total 1999 Balance -1950 / -1950 240 / 240 Weight 65.5 kg Intake: Oral 50 / 50 240 / 240 Output: Urine 0 / 0 Hemodialysis Amount 1999 Other: Date of Last Bowel Movement 10/19/17 Narrative: GENERAL: This is a well-nourished, well-developed patient, in no apparent distress. CARDIOVASCULAR: Regular rate and rhythm RESPIRATORY: Clear to auscultation. Breath sounds equal bilaterally. No wheezes , rales, or rhonchi. GASTROINTESTINAL: Abdomen soft, non-tender, nondistended. Normal active bowel sounds MUSCULOSKELETAL: Extremities without clubbing, cyanosis, or edema. NEURO: Alert & Oriented x4 to person, place, time, situation. Moves all ext x4 Results Procedures completed during hospitalization: none Labs on day of discharge: Labs from last 24 hours 10/21/17 10/20/17 04:44 20:55 PT 11.5 11.1 INR 1.1 1.1 - Impressions ITS Impressions Chest X-Ray 10/17/17 14:35 CONCLUSION: 1. Right-sided dual-lumen IJ central venous catheter in place. 2. No evidence of pneumothorax. Chest CTA 10/17/17 15:42 CONCLUSION: 1. No evidence of pulmonary embolus. 2. Moderate severity pulmonary emphysema. 3. Coronary artery calcification. 4. Possible pulmonary arterial hypertension. <Ken Parra - Last Filed: 10/22/17 10:54> Date of admission: 10/18/17 10:53 Primary care physician: UNKNOWN DS: Diagnosis - Discharge Diagnosis (1) Fluid overload Status: Acute (2) Pulmonary edema Status: Acute (3) Hypertensive crisis Status: Acute (4) Acute hyperkalemia Status: Acute DS: Summary Hospital Course: Patient examined. Assessment and plan formulated with Adali Oliver PA-C. I agree with the above. ativan 0.5mg q8h prn agitation, #20, NO RF for non acute pain eforce reviewed 10/22/17 - Time Spent with Patient Total time spent providing and/or coordinating discharge services: Exam Vital signs: Vital Signs 10/21/17 11:00 10/21/17 12:00 10/21/17 13:00 Temperature 98.2 F Pulse Rate 55 L 66 70 Respiratory Rate 18 Blood Pressure 136/75 Pulse Oximetry 98 10/21/17 14:00 10/21/17 14:52 10/21/17 15:00 Temperature 97.4 F L Pulse Rate 48 L 48 L 66 Respiratory Rate 14 Blood Pressure 143/62 H Pulse Oximetry 95 10/21/17 16:00 10/21/17 17:00 10/21/17 18:00 Temperature Pulse Rate 60 54 L 52 L Respiratory Rate Blood Pressure Pulse Oximetry 10/21/17 19:00 10/21/17 20:00 10/21/17 21:00 Temperature 98.4 F Pulse Rate 55 L 50 L 58 L Respiratory Rate 18 Blood Pressure 153/63 H Pulse Oximetry 96 96 10/21/17 22:00 10/21/17 23:00 10/22/17 00:00 Temperature 98.2 F Pulse Rate 58 L 55 L 54 L Respiratory Rate 18 Blood Pressure 156/75 H Pulse Oximetry 96 10/22/17 01:00 10/22/17 02:00 10/22/17 03:00 Temperature 97.9 F Pulse Rate 62 63 63 Respiratory Rate 17 Blood Pressure 144/71 H Pulse Oximetry 96 10/22/17 04:00 10/22/17 05:00 10/22/17 06:00 Temperature Pulse Rate 53 L 61 59 L Respiratory Rate Blood Pressure Pulse Oximetry 10/22/17 07:00 Temperature 97.9 F Pulse Rate 56 L Respiratory Rate 16 Blood Pressure 145/65 H Pulse Oximetry 95 Intake & Output 10/21/17 10/22/17 10/22/17 18:59 06:59 18:59 Intake Total 365 / 365 720 / 720 Output Total 0 / 0 Balance 365 / 365 720 / 720 Intake: Oral 365 / 365 720 / 720 Output: Urine 0 / 0 Other: Date of Last Bowel Movement 10/19/17 10/19/17 Results Labs on day of discharge: Labs from last 24 hours 10/22/17 06:26 PT 14.7 H INR 1.5 - Impressions ITS Impressions Chest X-Ray 10/17/17 14:35 CONCLUSION: 1. Right-sided dual-lumen IJ central venous catheter in place. 2. No evidence of pneumothorax. Chest CTA 10/17/17 15:42 CONCLUSION: 1. No evidence of pulmonary embolus. 2. Moderate severity pulmonary emphysema. 3. Coronary artery calcification. 4. Possible pulmonary arterial hypertension. Discharge Plan - Discharge Order Discharge Orders: Discharge Order (Routine); Ordered 10/22/17 Ordered By: Adali Oliver Vascular Surgery Clear for Discharge (Routine); Ordered 10/20/17 Ordered By: Nolvia Oakley - Discharge Details Anticipated Discharge Date: 10/22/17 - Physicians Team Primary Care Provider: UNKNOWN, Attending Provider: Ken Parra Other Providers: Karen Benítez MD ; Robel Brooks MD ; [facility]
--- NOTE | 2017-10-21 10:23 | P.DCO ---
- Home Health Nursing Order: Medical education, Signs/symptoms of disease process, Medication education-adverse effect, Nursing assessment with vital signs Instructions: INR every 2 days with results to PCP Dr. Arana - Certification I have seen patient [facility] on 10/21/17. My clinical findings support the need for the requested home health care services because: Limited mobility due to disease progression I certify that my clinical findings support that this patient is homebound because: Unsteady gait/balance
--- NOTE | 2017-10-21 10:41 | P.PNIM ---
Subjective Interval history: Follow up ESRD on HD with volume overload and HTN Patient looking forward to DC home telemetry showing HR into to the 40s - patient asymptomatic Physical Exam Vital signs: Vital Signs 10/20/17 12:00 10/20/17 13:00 10/20/17 13:29 Temperature Pulse Rate 60 76 Respiratory Rate Blood Pressure Pulse Oximetry 97 10/20/17 14:00 10/20/17 15:00 10/20/17 16:00 Temperature 98.2 F Pulse Rate 58 L 50 L 67 Respiratory Rate 18 Blood Pressure 142/72 H Pulse Oximetry 96 10/20/17 17:00 10/20/17 18:00 10/20/17 19:00 Temperature 98.4 F Pulse Rate 52 L 56 L 51 L Respiratory Rate 18 Blood Pressure 113/70 Pulse Oximetry 98 10/20/17 20:00 10/20/17 21:00 10/20/17 22:00 Temperature Pulse Rate 60 60 62 Respiratory Rate Blood Pressure Pulse Oximetry 10/20/17 23:00 10/21/17 00:00 10/21/17 01:00 Temperature 97.9 F Pulse Rate 55 L 54 L 65 Respiratory Rate 18 Blood Pressure 131/50 L Pulse Oximetry 95 10/21/17 02:00 10/21/17 03:00 10/21/17 04:00 Temperature 97.6 F Pulse Rate 61 56 L 55 L Respiratory Rate 16 Blood Pressure 126/54 L Pulse Oximetry 95 10/21/17 05:00 10/21/17 06:00 10/21/17 07:00 Temperature 97.8 F Pulse Rate 51 L 49 L 57 L Respiratory Rate 16 Blood Pressure 138/63 Pulse Oximetry 96 10/21/17 08:00 10/21/17 09:00 10/21/17 10:00 Temperature Pulse Rate 60 60 52 L Respiratory Rate Blood Pressure Pulse Oximetry 96 Intake & Output 10/20/17 10/21/17 10/21/17 18:59 06:59 18:59 Intake Total 50 / 50 240 / 240 Output Total 1999 Balance -1949 / -1949 240 / 240 Weight 65.5 kg Intake: Oral 50 / 50 240 / 240 Output: Urine 0 / 0 Hemodialysis Amount 1999 Other: Date of Last Bowel Movement 10/19/17 Narrative: GENERAL: This is a well-nourished, well-developed patient, in no apparent distress. CARDIOVASCULAR: Bradycardic RESPIRATORY: Clear to auscultation. Breath sounds equal bilaterally. No wheezes , rales, or rhonchi. GASTROINTESTINAL: Abdomen soft, non-tender, nondistended. Normal active bowel sounds MUSCULOSKELETAL: Extremities without clubbing, cyanosis, or edema. NEURO: Alert & Oriented x4 to person, place, time, situation. Moves all ext x4 Results - Labs CBC & Chem 7: 10/19/17 05:45 10/20/17 05:53 Laboratory Results - last 24 hr 10/20/17 10/21/17 20:55 04:44 PT 11.1 11.5 INR 1.1 1.1 - Procedures none Assessment and Plan - Assessment (1) Fluid overload Code(s): E87.70 - Fluid overload, unspecified Status: Acute Plan: ESRD on HD Fluid overload Hyperkalemia - Pt is a 76 y/o male with ESRD on HD. He presented to the ED on 10/17/17 with complaints of uncontrolled HTN and headache. He underwent right nephrectomy about 3 weeks ago for RCC and previously had left nephrectomy about 15 years ago for the same dx. He has been on dialysis now for approximately 3 months. - He has been having worsening BP since his nephrectomy and adjustments have been made as of recent, per the Nephrology note: - Upon admission pt taking Lisinopril 20mg BID (increased from QD on 10/01/17), Hydralazine 50mg BID (25mg BID started 10/08 and was increased to 50mg BID 10/12) , Doxazosin 2mg HS, and Toprol XL 25mg QD. - comgmt with Nephrology - Pt received HD hyperkalemia and went [facility] - Pt is on low K+ diet. - DVT prophylaxis with SCDs - appreciate input from Dr. Brooks, Vascular Surgery. Pt to f/u with Dr. Brooks outpt. Hypertension - Pt has been continued on Lisinopril 20mg BID, Metoprolol 25mg QD, and Doxazosin 2mg HS. - Procardia XL 60mg increased to BID (10/19) - hydralazine changed to minoxidil 5 mg daily (10/19) - Clonidine PRN - Monitor BP and adjust further if needed. - Pt reports he recently underwent cardiac eval at [facility] in preparation for nephrectomy. - 10/21 patient's HR into the 40s, will stop metoprolol 25 mg daily, start metoprolol 12,5 mg BID tomorrow, decrease Cardizem to 30 mg BID - monitor BP and HR overnight plan to DC in AM if BP and HR remain stable Paroxysmal Atrial Fibrillation - telemetry - metoprolol - Dr. Parra discussed anticoagulation options with Dr. Benítez 10/19 - Continue Coumadin 5 mg daily with daily INR - INR today 1.1 repeat INR in AM Anxiety - ativan prn - increase home Lexapro to 20 mg Daily (2) Hypertensive crisis Code(s): I16.9 - Hypertensive crisis, unspecified Status: Acute (3) ESRD (end stage renal disease) on dialysis Code(s): N18.6 - End stage renal disease; Z99.2 - Dependence on renal dialysis Status: Acute (4) Acute hyperkalemia Code(s): E87.5 - Hyperkalemia Status: Acute (5) Pulmonary edema Code(s): J81.1 - Chronic pulmonary edema Status: Acute - Attending Attestation Patient examined. Assessment and plan formulated with Adali RIDLEY I agree with the above.
--- NOTE | 2017-10-21 17:14 | P.PNNP ---
Subjective Interval history: Patient indicating that he is feeling quite well. Bradycardia earlier asymptomatic. Physical Exam Vital signs: Vital Signs 10/20/17 18:00 10/20/17 19:00 10/20/17 20:00 Temperature 98.4 F Pulse Rate 56 L 51 L 60 Respiratory Rate 18 Blood Pressure 113/70 Pulse Oximetry 98 10/20/17 21:00 10/20/17 22:00 10/20/17 23:00 Temperature 97.9 F Pulse Rate 60 62 55 L Respiratory Rate 18 Blood Pressure 131/50 L Pulse Oximetry 95 10/21/17 00:00 10/21/17 01:00 10/21/17 02:00 Temperature Pulse Rate 54 L 65 61 Respiratory Rate Blood Pressure Pulse Oximetry 10/21/17 03:00 10/21/17 04:00 10/21/17 05:00 Temperature 97.6 F Pulse Rate 56 L 55 L 51 L Respiratory Rate 16 Blood Pressure 126/54 L Pulse Oximetry 95 10/21/17 06:00 10/21/17 07:00 10/21/17 08:00 Temperature 97.8 F Pulse Rate 49 L 57 L 60 Respiratory Rate 16 Blood Pressure 138/63 Pulse Oximetry 96 96 10/21/17 08:37 10/21/17 09:00 10/21/17 10:00 Temperature Pulse Rate 60 60 52 L Respiratory Rate Blood Pressure Pulse Oximetry 10/21/17 10:27 10/21/17 11:00 10/21/17 12:00 Temperature 98.2 F Pulse Rate 43 L 55 L 66 Respiratory Rate 18 Blood Pressure 136/75 Pulse Oximetry 98 10/21/17 13:00 10/21/17 14:00 10/21/17 14:52 Temperature Pulse Rate 70 48 L 48 L Respiratory Rate Blood Pressure Pulse Oximetry 10/21/17 15:00 10/21/17 16:00 Temperature 97.4 F L Pulse Rate 66 60 Respiratory Rate 14 Blood Pressure 143/62 H Pulse Oximetry 95 Intake & Output 10/20/17 10/21/17 10/21/17 18:59 06:59 18:59 Intake Total 50 / 50 240 / 240 Output Total 1999 Balance -1950 / -1950 240 / 240 Weight 65.5 kg Intake: Oral 50 / 50 240 / 240 Output: Urine 0 / 0 Hemodialysis Amount 1999 Other: Date of Last Bowel Movement 10/19/17 Narrative: GENERAL: This is a well-nourished, well-developed patient, in no apparent distress. CARDIOVASCULAR: Bradycardic RESPIRATORY: Clear to auscultation. Breath sounds equal bilaterally. No wheezes , rales, or rhonchi. GASTROINTESTINAL: Abdomen soft, non-tender, nondistended. Normal active bowel sounds MUSCULOSKELETAL: Extremities without clubbing, cyanosis, trace edema ankles. Assessment and Plan - Assessment (1) ESRD (end stage renal disease) on dialysis Code(s): N18.6 - End stage renal disease; Z99.2 - Dependence on renal dialysis Status: Acute Plan: Plan for hemodialysis in-house tomorrow. Discharge planning as per primary care physician. Plans to increase dialysis time to 4 hours post discharge to improve clearances and fluid removal. Patient also is agreeable in regard to this recommendation. Patient cleared for discharge from renal point of view. (2) Hypertension Code(s): I10 - Essential (primary) hypertension Status: Acute Plan: Blood pressure control has improved since yesterday. Continue current regimen. Bradycardia possibly related to a combination of the beta-regino, doxazosin clonidine. Noted primary care has reduced the beta-regino.
[2017-10-21] MEDS ORDERED: Sod Chloride 0.9% Inj 1,000 ML IV.CONT PRN (17:15)
[2017-10-21] MEDS ORDERED: Sod Chloride 0.9% Inj 1,000 ML OTHER PRN ×2 (17:15)
[2017-10-22 07:40] LABS: INR 1.5 Ratio; Prothrombin Time 14.7 sec (9.8-11.6)
[2017-10-22] MEDS ORDERED: Metoprolol Tartrate 25 MG Tablet PO SCH (09:00)
--- NOTE | 2017-10-22 12:19 | P.PNNP ---
Subjective Interval history: 10/18/17 The patient is a 76 yo [place] male who is known to our services for ESRD on HD. He presented to the ED last evening with complaints of uncontrolled HTN and headache. He underwent right nephrectomy about 3 weeks ago for RCC leaving him with no kidneys as he had previous left nephrectomy about 15 years ago for the same dx. He has been on dialysis now for approximately 3 months. He has been having worsening BP since his nephrectomy and adjustments have been made as of recent. He is currently taking Lisinopril 20mg BID (increased from QD on ), Hydralazine 50mg BID (25mg BID started 10/08 and was increased to 50mg BID ), Doxazosin 2mg HS, and Toprol XL 25mg QD. Says that home BP readings have been systolically 170-200 range. Yesterday, was experiencing ARNDT and some chest pressure prompting ED evaluation. Received HD last night for hyperkalemia and is seen during HD today (for regular MWF schedule). BP on machine 132/74. Some ARNDT, but improved from admission. Regular tx time 3.5h. Last outpatient HD 10/1510/19/17 Respirations improved. Patient indicated that he developed a headache about 4 days ago after hydralazine was increased in dosage. Otherwise no verbal complaints currently. 10/20/17 Patient apparently developed intermittent atrial fibrillation since yesterday. This was discussed with primary care physician. Anticoagulation has been initiated by primary care physician. 10/21/17 Patient indicating that he is feeling quite well. Bradycardia earlier asymptomatic. 10/22/17 Pt seen during HD. Tolerating session well. BP elevated at end of tx, but was not given any BP medications this AM. Tentative d/c after HD today. Physical Exam Vital signs: Vital Signs 10/21/17 13:00 10/21/17 14:00 10/21/17 14:52 Temperature Pulse Rate 70 48 L 48 L Respiratory Rate Blood Pressure Pulse Oximetry 10/21/17 15:00 10/21/17 16:00 10/21/17 17:00 Temperature 97.4 F L Pulse Rate 66 60 54 L Respiratory Rate 14 Blood Pressure 143/62 H Pulse Oximetry 95 10/21/17 18:00 10/21/17 19:00 10/21/17 20:00 Temperature 98.4 F Pulse Rate 52 L 55 L 50 L Respiratory Rate 18 Blood Pressure 153/63 H Pulse Oximetry 96 96 10/21/17 21:00 10/21/17 22:00 10/21/17 23:00 Temperature 98.2 F Pulse Rate 58 L 58 L 55 L Respiratory Rate 18 Blood Pressure 156/75 H Pulse Oximetry 96 10/22/17 00:00 10/22/17 01:00 10/22/17 02:00 Temperature Pulse Rate 54 L 62 63 Respiratory Rate Blood Pressure Pulse Oximetry 10/22/17 03:00 10/22/17 04:00 10/22/17 05:00 Temperature 97.9 F Pulse Rate 63 53 L 61 Respiratory Rate 17 Blood Pressure 144/71 H Pulse Oximetry 96 10/22/17 06:00 10/22/17 07:00 Temperature 97.9 F Pulse Rate 59 L 56 L Respiratory Rate 16 Blood Pressure 145/65 H Pulse Oximetry 95 Intake & Output 10/21/17 10/22/17 10/22/17 18:59 06:59 18:59 Intake Total 365 / 365 720 / 720 Output Total 0 / 0 Balance 365 / 365 720 / 720 Intake: Oral 365 / 365 720 / 720 Output: Urine 0 / 0 Other: Date of Last Bowel Movement 10/19/17 10/19/17 - Constitutional no acute distress - Routine HEENT Exam Head: Present: normocephalic - Routine Neck Exam Present: supple - Routine Respiratory Exam Present: CTA bilaterally - Routine Cardiovascular Exam Present: RRR, S1, S2 - Routine Abdominal Exam Present: soft - Routine Extremities Exam Absent: edema - Routine Neurological Exam Present: alert, oriented X3 - Routine Psychiatric Exam Present: normal affect, normal thought process Assessment and Plan - Assessment (1) ESRD (end stage renal disease) on dialysis Code(s): N18.6 - End stage renal disease; Z99.2 - Dependence on renal dialysis Status: Acute Plan: Seen during HD today. Tolerating session well. BP elevated, but did not receive medications this AM. To be given meds as soon as he arrives back at room. Was advised again that his treatment time will be increased as outpatient to 4h. Plan for hemodialysis in-house tomorrow. Discharge planning as per primary care physician. Plans to increase dialysis time to 4 hours post discharge to improve clearances and fluid removal. Patient also is agreeable in regard to this recommendation. Patient cleared for discharge from renal point of view. (2) Hypertension Code(s): I10 - Essential (primary) hypertension Status: Acute Plan: Blood pressure control has improved since yesterday. Continue current regimen. Bradycardia possibly related to a combination of the beta-regino, doxazosin clonidine. Noted primary care has reduced the beta-regino.
[2017-10-22] MEDS: Minoxidil 2.5 MG Tablet PO SCH (13:09)
[2017-10-22] MEDS: Escitalopram 10 MG Tablet PO SCH (13:09)
[2017-10-22] MEDS: Senna/Docusate Sodium 8.6/50 MG Tablet PO SCH (13:10)
[2017-10-22] MEDS: Lisinopril 20 MG Tablet PO SCH (13:11)
== END 2017-10-22 14:16 | disposition home health service (06) ==
LOC: NEPE 14:21 → INTOOBSV 19:08 → NEDA 19:08 → HCIS 22:35
PROVIDERS: ADMIT Hospitalist; ATTEND Hospitalist

== ENCOUNTER 2018-01-27 09:24 | Observation (INO) ==
[2018-01-27] MEDS ORDERED: Protamine Sulfate Inj 50 MG/5 ML Vial ONE (10:36)
[2018-01-27] MEDS ORDERED: Heparin 10,000 UNITS/10 ML Vial (for IV use) ONE (10:36)
[2018-01-27] MEDS ORDERED: Heparin/NS PF Inj 500 ML ONE (10:37)
[2018-01-27] MEDS ORDERED: Thrombin Topical 20,000 UNIT Spray Kit TOPICAL ONE (10:37)
[2018-01-27] MEDS ORDERED: Bupivacaine PF 0.5% Inj 10 ML Vial ONE (10:37)
[2018-01-27] MEDS ORDERED: ceFAZolin 1 GM Premix Inj 0 GM/0 ML PIGGYBACK IV.SIG ONE (10:38)
--- NOTE | 2018-01-27 10:57 | XR ---
EXAM DATE: 01/27/2018 10:49 AM EST AGE/SEX: 77 years / Male INDICATIONS: Pre- surgery, Evaluate for pneumonia, pneumothorax or communicable disease.Left arm fis ras repair CLINICAL DATA: This is the patient's initial encounter. Patient reports that signs and symptoms have been present for 1 day and indicates a pain score of 0/10. MEDICAL/SURGICAL HISTORY: Hypertension. Renal failure, chronic. . Infusaport COMPARISON: [facility] [place], CHEST 1V SINGLE AP, 10/17/2017. [facility] [place], CTA PULMONARY W CONTRAST W 3D, 10/17/2017. . FINDINGS: There is a right-sided double-lumen line in place from the right internal jugular approach with the t ip overlying the SVC. The heart size is upper limits of normal. There are nodular density seen at the lower lateral chest regions bilaterally likely related to nipple shadows given their appearance and location. The patient had a recent CTA of the chest performed on 10/17/2017. No lung masses were seen. The lungs are otherwise clear.. CONCLUSION: No acute abnormality is seen. Bilateral nipple shadows are seen. Electronically signed by: Shaheed Spivey MD 01/27/2018 10:56 AM EST
--- NOTE | 2018-01-27 11:05 | P.HPVS ---
History of Present Illness Chief Complaint: ESRD need for HD access History of Present Illness: 77 yo male with ESRD s/p L UE AVF (1st stage brachiobasilic AVF) 11/11/17. Presents for 2nd stage. Gets HD MWF and [facility] HD yesterday, - Inpatient Certification If this patient has been admitted as an Inpatient: I certify that the inpatient services were ordered in accordance with Medicare regulations governing the order. This includes certification that hospital inpatient services are reasonable and necessary and in the case of services not specified as inpatient-only under 42 CFR 419.22(n), that they are appropriately provided as inpatient services in accordance to with the 2-midnight benchmark under 43 CFR 412.3(e) Estimated Total Length of Stay (Days): 1 Plans for Post Hospital Care: Home Review of Systems Constitutional: Denies chills, Denies fever(s) PMFSH - History History Provided By: Family Member - Medical History Medical History: Medical History (Last Reviewed 01/27/18 @ 11:03 by Robel Brooks MD) ESRD (end stage renal disease) on dialysis HTN (hypertension) Port catheter in place Renal cancer S/p nephrectomy - Surgical History Surgical History: Surgical History (Last Reviewed 01/27/18 @ 11:03 by Robel Brooks MD) H/O laminectomy Status post cataract extraction of both eyes with insertion of intraocular lens - Tobacco History Second Hand Smoke Exposure: No Smoking Status: Never smoker Tobacco Type: Cigarettes - Alcohol History How Often Do You Have a Drink Containing Alcohol: Never - Substance Use History Substance History: No History of Abuse Medications and Allergies Allergies Allergy/AdvReac Type Severity Reaction Status Date / Time hydralazine AdvReac Difficulty Verified 01/27/18 10:20 Breathing Home Medications Medication Instructions Recorded Confirmed Type doxazosin 2 mg PO HS 10/17/17 01/26/18 History zolpidem [Ambien] 10 mg PO PRN PRN 10/17/17 01/26/18 History atorvastatin 40 mg PO DAILY 11/09/17 01/26/18 History losartan 100 mg PO DAILY 11/09/17 01/27/18 History calcium acetate 1,334 mg PO TIDAC 01/11/18 01/26/18 History cholecalciferol (vitamin D3) 50,000 unit PO 2XWEEK 01/11/18 01/26/18 History [Dialyvite Vitamin D] escitalopram oxalate [Lexapro] 20 mg PO DAILY PRN 01/11/18 01/26/18 History minoxidil 5 mg PO DAILY 01/11/18 01/26/18 History nifedipine 30 mg PO BID 01/11/18 01/27/18 History Physical Exam Vital Signs / I&O: Intake & Output 01/26/18 01/27/18 01/27/18 18:59 06:59 18:59 Weight 70.9 kg Other: Weight On Admission 70.9 kg Neuro: alert, no distress HEENT: NC/AT Neck: no JVD Heart: reg rate Lungs: clear Vascular: L UE incision well healed; + thrill. hand ok Impressions Chest X-Ray 01/27/18 00:00 CONCLUSION: No acute abnormality is seen. Bilateral nipple shadows are seen. Caprini VTE Risk Assessment Caprini VTE Risk Assessment: No/Low Risk (score <= 1) (intraop heparin, early ambulation) Caprini Risk Assessment Model: Point Value = 1 Point Value = 2 Point Value = 3 Point Value = 5 Age 41-60 Minor surgery BMI > 25 kg/m2 Swollen legs Varicose veins or History of unexplained or recurrent spontaneous Oral contraceptives or hormone replacement Sepsis (< 1 month) Serious lung disease, including pneumonia (< 1 month) Abnormal pulmonary function Acute myocardial infarction Congestive heart failure (< 1 month) History of inflammatory bowel disease Medical patient at bed rest Age 61-74 Arthroscopic surgery Major open surgery (> 45 min) Laparoscopic surgery (> 45 min) Malignancy Confined to bed (> 72 hours) Immobilizing plaster cast Central venous access Age >= 75 History of VTE Family history of VTE Factor V Leiden Prothrombin [id number] Lupus anticoagulant Anticardiolipin antibodies Elevated serum homocysteine Heparin-induced thrombocytopenia Other congenital or acquired thrombophilia Stroke (< 1 month) Elective arthroplasty Hip, pelvis, or leg fracture Acute spinal cord injury (< 1 month) Prophylaxis Regimen: Total Risk Factor Score Risk Level Prophylaxis Regimen 0-1 Low Early ambulation 2 Moderate Order ONE of the following: *Sequential Compression Device (SCD) *Heparin 5000 units SQ BID 3-4 Higher Order ONE of the following medications: *Heparin 5000 units SQ TID *Enoxaparin/Lovenox 40 mg SQ daily (WT < 150 kg, CrCl > 30 mL/min) *Enoxaparin/Lovenox 30 mg SQ daily (WT < 150 kg, CrCl > 10-29 mL/min) *Enoxaparin/Lovenox 30 mg SQ BID (WT < 150 kg, CrCl > 30 mL/min) AND/OR *Sequential Compression Device (SCD) 5 or more Highest Order ONE of the following medications: *Heparin 5000 units SQ TID (Preferred with Epidurals) *Enoxaparin/Lovenox 40 mg SQ daily (WT < 150 kg, CrCl > 30 mL/min) *Enoxaparin/Lovenox 30 mg SQ daily (WT < 150 kg, CrCl > 10-29 mL/min) *Enoxaparin/Lovenox 30 mg SQ BID (WT < 150 kg, CrCl > 30 mL/min) AND *Sequential Compression Device (SCD) Assessment and Plan - Assessment (1) ESRD (end stage renal disease) on dialysis Code(s): N18.6 - End stage renal disease; Z99.2 - Dependence on renal dialysis Status: Acute - Plan L UE Access revision planned admit post-op for obs and HD anticipation for d/c POD#1
[2018-01-27 11:23] LABS: Calcium 7.8 mg/dL (8.5-10.1); Carbon Dioxide 25.5 meq/L (21.0-32.0)
[2018-01-27 11:28] LABS: Potassium 5.2 meq/L (3.5-5.1)
[2018-01-27] MEDS ORDERED: Sodium Chlor 0.9% Inj 250 ML IV.CONT ONE (11:34)
[2018-01-27] MEDS ORDERED: Lidocaine PF 1% Inj 5 ML Syringe OTHER ONE (11:34)
[2018-01-27] MEDS ORDERED: Phenylephrine/NS 1000 MCG/10ML Syringe IV.PUSH ONE (11:34)
[2018-01-27] MEDS ORDERED: Chlorhexidine Gluconate 2% 1 Pack (2 Cloths) TOPICAL ONE (11:35)
[2018-01-27] MEDS ORDERED: Metoprolol Tartrate 25 MG Tablet PO ONE (11:35)
[2018-01-27] MEDS ORDERED: Sodium Chlor 0.9% Inj 500 ML IV.SIG SCH (12:00)
[2018-01-27 12:51] LABS: INR 1.1 Ratio; Prothrombin Time 11.3 sec (9.8-11.6)
[2018-01-27] MEDS ORDERED: fentaNYL Citrate Inj 100 MCG/2 ML Ampul ONE (12:57)
[2018-01-27] MEDS ORDERED: Bisacodyl 10 MG Supp RECTAL PRN (13:00)
--- NOTE | 2018-01-27 13:00 | P.OP ---
- Preoperative Diagnosis (1) ESRD (end stage renal disease) on dialysis - Postoperative Diagnosis (1) ESRD (end stage renal disease) on dialysis Date of procedure: 01/27/18 Procedure: L UE access revision (transposition of brachiobasilic AVF) Implants: none Anesthesia: GETA Surgeon: Robel Brooks MD [place] Overseer: Ally Anthony Estimated blood loss (mL): 40 IV fluids (mL): 400 Pathology: none sent Operation and Findings: + thrill and good Doppler signal in wrist after AVF
--- NOTE | 2018-01-27 13:55 | MP ---
cc: Robel Brooks MD DATE OF OPERATION: 01/27/2018 PREOPERATIVE DIAGNOSIS: End-stage renal disease, need for dialysis access, status post left upper extremity first stage brachiobasilic. POSTOPERATIVE DIAGNOSIS: End-stage renal disease, need for dialysis access, status post left upper extremity first stage brachiobasilic. PROCEDURE PERFORMED: Left upper extremity brachiobasilic transposition (second stage access revision). ATTENDING SURGEON: Robel Brooks MD SUPERVISOR [employer] SURGEON: ROLANDO Rivera PA/Appraisal Coordinator ANESTHESIA: General. INDICATIONS: Mr. St is a 77-year-old gentleman with end-stage renal disease. He underwent a left brachiobasilic fistula in October and he is taken to the operating room for his planned second stage. He is tolerating dialysis and has no new events which would preclude elective operation. DESCRIPTION OF PROCEDURE: Informed consent was obtained from the patient. He was taken to the operating room and placed supine on the operating room table. An appropriate timeout was taken to ensure the patient's identity, operative site and planned procedure. The administration of 1 gram of vancomycin was initiated prior to skin incision and will be discontinued a single preoperative dose. Everyone in the room agreed with the timeout and we proceeded. His left arm was prepped and draped. An incision was made over the medial aspect of the upper arm and carried down through the subcutaneous tissue with electrocautery. The basilic vein was identified and dissected free down from the brachial artery all the way up to the axilla. Side branches were ligated with 3-0 silk. The vein was distended, marked for orientation, clamped proximally with a right angle clamp and transected. It was marked for orientation and passed along with a tunneler on the anterior aspect of the upper arm, taking caution not to twist it. The brachial artery was identified in the medial aspect of the upper arm. The patient was systemically heparinized with 3000 units of IV heparin. Proximal and distal control of the brachial artery was obtained with profunda clamps and a longitudinal arteriotomy was made with an 11 blade and extended with Phil scissors. The vein was spatulated and sewn end to side with running 6-0 Prolene suture. At the completion, it was flushed and noted to be hemostatic. There was a nice thrill in the fistula and the fistula sat quite nicely in the upper arm. There was a Doppler signal in the wrist. The heparin was reversed with protamine. The wound was infiltrated with Marcaine, irrigated, made hemostatic and closed with 2-0 Polysorb, 3-0 Polysorb and 4-0 Monocryl. The sponge and needle counts were correct at the end of the case. I was present, scrubbed and performed the entire procedure. MD KYLE Carranza/tamara , 01:27 PM , 01:33 PM
[2018-01-27] MEDS ORDERED: *morphine SULFATE 10 MG/ML PERIprocedure ONLY ONE (14:31)
--- NOTE | 2018-01-27 18:11 | P.CONNP ---
History of Present Illness Reason for Consult: Needs inpatient dialysis. Primary Care Provider: Domi Arana MD Chief Complaint: End-stage renal disease. History of Present Illness: This patient is a 77-year-old male who unfortunately has a history of previous renal cell carcinoma status post previous left nephrectomy 15 years ago and subsequently requiring right nephrectomy September, leaving the patient a nephric and dialysis dependent. Patient now status post brachiocephalic transposition AV fistula. Surgery apparently went well. Patient has no verbal complaints currently. Review of Systems All other systems reviewed negative except as stated in HPI PMFSH - History History Provided By: Family Member - Medical History Medical History: Medical History (Last Reviewed 01/27/18 @ 11:03 by Robel Brooks MD) ESRD (end stage renal disease) on dialysis HTN (hypertension) Port catheter in place Renal cancer S/p nephrectomy - Surgical History Surgical History: Surgical History (Last Reviewed 01/27/18 @ 11:03 by Robel Brooks MD) H/O laminectomy Status post cataract extraction of both eyes with insertion of intraocular lens - Tobacco History Second Hand Smoke Exposure: No Tobacco Use In Past 30 Days: No Smoking Status: Never smoker Tobacco Type: Cigarettes - Alcohol History How Often Do You Have a Drink Containing Alcohol: Never - Substance Use History Substance History: No History of Abuse - Travel History Recent Travel in the [place] Within the Last 8 Weeks: No Recent Travel Out of the Country Within the Last 8 Weeks: No - Immunization History Tetanus Immunization: <5 Years Hx Influenza Vaccine This Season: Yes Medications and Allergies Active Medications: Active Medications Atorvastatin Calcium (Lipitor) 40 mg PO DAILY JULIANN Bisacodyl (Dulcolax Supp) 10 mg RECTAL DAILY PRN PRN Reason: SEVERE CONSITIPATION Calcium Acetate (Phoslo) 1,334 mg PO TIDAC JULIANN Doxazosin Mesylate (Cardura) 2 mg PO HS JULIANN Ergocalciferol (Vitamin D2) 50,000 unit PO MoFr JULIANN Escitalopram Oxalate (Lexapro) 20 mg PO DAILY PRN PRN Reason: Anxiety Heparin Sodium (Porcine) (Heparin Inj) 5,000 units SQ Q8H JULIANN Hydromorphone HCl (Dilaudid) 2 mg PO Q4H PRN PRN Reason: PAIN SCALE 6 TO 10 Lactated Ringer's (Lr 1000 Ml Inj) 1,000 mls @ 30 mls/hr IV.SIG .Q24H JULIANN Stop: 01/28/18 11:44 Last Admin: 01/27/18 14:35 Dose: Not Given Lactulose (Lactulose Liq) 30 ml PO DAILY PRN PRN Reason: SEVERE CONSITIPATION Losartan Potassium (Cozaar) 100 mg PO DAILY JULIANN Minoxidil (Loniten) 5 mg PO DAILY FORMERLY [facility], [facility] Miscellaneous Information ([facility] Nursing Information) 1 each OTHER UNSCH PRN PRN Reason: SEE LABEL COMMENTS Stop: 01/28/18 14:08 Morphine Sulfate (Morphine Inj) 2 mg IV.PUSH Q1H PRN PRN Reason: BREAKTHROUGH PAIN Nifedipine (Procardia) 30 mg PO BID FOR[facility]LY [facility], 1928[facility]1983 Oxycodone HCl (Roxicodone) 5 mg PO Q4H PRN PRN Reason: PAIN SCALE 1 TO 5 Senna/Docusate Sodium (Elizabeth-Colace) 1 tab PO BID FOR[facility]LY [facility]1983 Sennosides (Senokot) 17.2 mg PO Q12H PRN PRN Reason: Moderate Constipation Zolpidem Tartrate (Ambien) 10 mg PO HS PRN PRN Reason: Insomnia Allergies Allergy/AdvReac Type Severity Reaction Status Date / Time hydralazine AdvReac Difficulty Verified 01/27/18 10:20 Breathing Home Medications Medication Instructions Recorded Confirmed Type doxazosin 2 mg PO HS 10/17/17 01/26/18 History zolpidem [Ambien] 10 mg PO PRN PRN 10/17/17 01/26/18 History atorvastatin 40 mg PO DAILY 11/09/17 01/26/18 History losartan 100 mg PO DAILY 11/09/17 01/27/18 History calcium acetate 1,334 mg PO TIDAC 01/11/18 01/26/18 History cholecalciferol (vitamin D3) 50,000 unit PO 2XWEEK 01/11/18 01/26/18 History [Dialyvite Vitamin D] escitalopram oxalate [Lexapro] 20 mg PO DAILY PRN 01/11/18 01/26/18 History minoxidil 5 mg PO DAILY 01/11/18 01/26/18 History nifedipine 30 mg PO BID 01/11/18 01/27/18 History Exam Vital signs: Vital Signs 01/27/18 10:40 01/27/18 13:38 01/27/18 13:45 Temperature 97.3 F L 97.4 F L Pulse Rate 67 82 80 Respiratory Rate 16 16 16 Blood Pressure 170/71 H 140/67 160/70 H Pulse Oximetry 99 98 97 01/27/18 14:00 01/27/18 14:15 01/27/18 14:30 Temperature Pulse Rate 78 74 70 Respiratory Rate 16 16 16 Blood Pressure 152/67 H 167/75 H 150/68 H Pulse Oximetry 95 96 98 01/27/18 14:45 Temperature Pulse Rate 66 Respiratory Rate 16 Blood Pressure 140/64 Pulse Oximetry 96 Intake & Output 01/26/18 01/27/18 01/27/18 18:59 06:59 18:59 Intake Total 400 / 400 Output Total 40 / 40 Balance 360 / 360 Weight 70.9 kg Intake: Anesthesia Amount 400 / 400 Output: Estimated Blood Loss 40 / 40 Other: Weight On Admission 70.9 kg Narrative: GENERAL: Patient in bed not in respiratory distress. by bedside. SKIN: Warm and dry. HEAD: Normocephalic. EYES: No scleral icterus. No injection or drainage. NECK: Supple, trachea midline. No JVD or lymphadenopathy. CARDIOVASCULAR: Regular rate and rhythm without murmurs, gallops, or rubs. RESPIRATORY: Breath sounds equal bilaterally. No accessory muscle use. GASTROINTESTINAL: Abdomen soft, non-tender, nondistended. MUSCULOSKELETAL: No cyanosis 1+ edema lower extremities 2/3 way up the legs. Left upper extremity with very good radial pulse and capillary refill.. Results - Lab Results 01/27/18 10:30 01/27/18 10:30 Most recent lab results Calcium 7.8 mg/dL (8.5-10.1) L 01/27/18 10:30 Assessment and Plan - Assessment (1) ESRD (end stage renal disease) on dialysis Code(s): N18.6 - End stage renal disease; Z99.2 - Dependence on renal dialysis Status: Acute Plan: Plan for hemodialysis tomorrow as ordered. Patient advised to continue a low potassium diet, potassium is mildly elevated today and will correct with dialysis tomorrow.. Has been exhibiting relatively high fluid gains of dialysis recently. Counseled the patient regarding benefit of following a low-salt low fluid diet. Avoid gadolinium. Medication should be adjusted for his end-stage renal disease when indicated. (2) Hypertension Code(s): I10 - Essential (primary) hypertension Status: Acute Plan: Continue current hypertensive regimen
[2018-01-27] MEDS ORDERED: Gelatin 12 MM/7 MM Topical Foam TOPICAL PRN (18:14)
[2018-01-27] MEDS ORDERED: Sod Chloride 0.9% Inj 1,000 ML OTHER PRN ×2 (18:14)
[2018-01-27] MEDS ORDERED: Sod Chloride 0.9% Inj 1,000 ML IV.CONT PRN (18:14)
[2018-01-27] MEDS ORDERED: Albumin Human 25% Inj 100 ML IV.SIG PRN (18:14)
[2018-01-27] MEDS ORDERED: Heparin 10,000 UNITS/10 ML Vial (for IV use) OTHER PRN ×2 (18:14)
[2018-01-27] MEDS ORDERED: Acetaminophen 325 MG Tablet PO PRN (18:14)
[2018-01-27] MEDS ORDERED: Calcium Acetate 667 MG Capsule PO ONE (19:15)
[2018-01-27] MEDS: Senna/Docusate Sodium 8.6/50 MG Tablet PO SCH (20:47)
[2018-01-27] MEDS: Morphine Inj 4 MG/ML Vial IV.PUSH PRN (20:48)
[2018-01-27] MEDS ORDERED: NIFEdipine 10 MG Capsule PO SCH (21:00)
[2018-01-28] MEDS: Morphine Inj 4 MG/ML Vial IV.PUSH PRN (03:54)
[2018-01-28 04:35] VITALS: RESP 18
[2018-01-28 06:53] LABS: Hematocrit 28.2 % (39.0-51.0); Hemoglobin 9.8 gm/dL (13.0-17.0); Mean Corpuscular HGB Conc 34.7 % (32.0-36.0); Mean Corpuscular Hemoglobin 32.3 pg (27.0-34.0); Mean Corpuscular Volume 93.1 fL (80.0-100.0); Mean Platelet Volume 7.7 fL (7.0-11.0); Platelet Count 121 th/mm3 (150-450); Red Blood Count 3.03 mil/mm3 (4.50-5.90); Red Cell Distribution Width 15.6 % (11.6-17.2); White Blood Count 5.5 th/mm3 (4.0-11.0)
[2018-01-28 07:18] LABS: Calcium 7.2 mg/dL (8.5-10.1); Carbon Dioxide 28.5 meq/L (21.0-32.0); Potassium 4.7 meq/L (3.5-5.1)
[2018-01-28 07:38] LABS: Albumin 3.2 g/dL (3.4-5.0); Calcium-Albumin Corrected 7.8 mg/dL (8.5-10.1)
[2018-01-28] MEDS ORDERED: Calcium Acetate 667 MG Capsule PO SCH (08:00)
--- NOTE | 2018-01-28 08:06 | P.PNVS ---
Subjective Post Op Day #: 1 Procedure: L UE access revision (transposition of brachiobasilic AVF) Subjective/Hospital Course: 77/M with a hx of ESRD on HD Pt alert in NAD, speech clear Pt s/p L UE access revision (transposition of brachiobasilic AVF) POD 1 Mild incisional pain with expected L UE swelling Reports no hand pain Objective Vital Signs / I&O: Vital Signs 01/27/18 10:40 01/27/18 13:38 01/27/18 13:45 Temperature 97.3 F L 97.4 F L Pulse Rate 67 82 80 Respiratory Rate 16 16 16 Blood Pressure 170/71 H 140/67 160/70 H Pulse Oximetry 99 98 97 01/27/18 14:00 01/27/18 14:15 01/27/18 14:30 Temperature Pulse Rate 78 74 70 Respiratory Rate 16 16 16 Blood Pressure 152/67 H 167/75 H 150/68 H Pulse Oximetry 95 96 98 01/27/18 14:45 01/27/18 16:00 01/27/18 20:00 Temperature 97.7 F 97.3 F L Pulse Rate 66 71 62 Respiratory Rate 16 18 16 Blood Pressure 140/64 126/61 138/61 Pulse Oximetry 96 88 L 95 01/28/18 00:00 01/28/18 04:00 Temperature 97.5 F L 97.5 F L Pulse Rate 61 65 Respiratory Rate 16 18 Blood Pressure 129/60 135/62 Pulse Oximetry 91 L 90 L Intake & Output 01/27/18 01/28/18 01/28/18 18:59 06:59 18:59 Intake Total 700 / 700 200 / 200 Output Total 40 / 40 Balance 660 / 660 200 / 200 Weight 70.9 kg 70.8 kg Intake: IV 300 / 300 NS Inj 500 ML @ 30 mls/hr IV. 300 / 300 SIG .Q10H JULIANN Rx#:[id number] Oral 200 / 200 Anesthesia Amount 400 / 400 Output: Estimated Blood Loss 40 / 40 Other: Date of Last Bowel Movement 01/27/18 Weight On Admission 70.9 kg Exam: GENERAL: Afebrile 77/M who is alert in NAD/GCS15/Speech clear SKIN: Warm and dry Incision to L UE intact w/ surgical glue/ ecchymosis present near incision site/ mild swelling/No drainage + thrill near AVF Palpable L radial pulse noted B UE 5/5 B UE warm w/ motor intact Laboratory Results - last 24 hr 01/27/18 01/27/18 01/27/18 10:30 10:30 10:30 CBC w Diff Cancelled WBC Cancelled Corrected WBC Cancelled RBC Cancelled Hgb Cancelled Hct Cancelled MCV Cancelled MCH Cancelled MCHC Cancelled RDW Cancelled Plt Count Cancelled MPV Cancelled Prelim Diff (Auto) Cancelled Immature Gran % (Auto) Cancelled Neut % (Auto) Cancelled Lymph % (Auto) Cancelled [place] % (Auto) Cancelled Eos % (Auto) Cancelled Baso % (Auto) Cancelled Immature Gran # (Auto) Cancelled Neut # (Auto) Cancelled Lymph # (Auto) Cancelled [place] # (Auto) Cancelled Eos # (Auto) Cancelled Baso # (Auto) Cancelled WBC Differential Cancelled Diff Scan Cancelled Seg Neuts % (Manual) Cancelled Band Neuts % (Manual) Cancelled Lymphocytes % (Manual) Cancelled Atypical Lymphs % (Man) Cancelled Monocytes % (Manual) Cancelled Eosinophils % (Manual) Cancelled Basophils % (Manual) Cancelled Metamyelocytes % (Man) Cancelled Myelocytes % (Man) Cancelled Promyelocytes % (Man) Cancelled Blast Cells % (Manual) Cancelled Plasma Cell % (Manual) Cancelled Other Cells % Cancelled Abs Neuts (Manual) Cancelled Nucleated RBCs/100 WBC Cancelled Differential Comment Cancelled Hypersegmented Neuts Cancelled Smudge Cells Cancelled Toxic Granulation Cancelled Toxic Vacuolation Cancelled Dohle Bodies Cancelled Platelet Estimate Cancelled Platelet Morphology Cancelled RBC Morphology Cancelled Dimorphic RBCs Cancelled Polychromasia Cancelled Basophilic Stippling Cancelled Spherocytes Cancelled Pappenheimer Bodies Cancelled Sickle Cells Cancelled Target Cells Cancelled Tear Drop Cells Cancelled Ovalocytes Cancelled Stomatocytes Cancelled Helmet Cells Cancelled Castañeda-Dendron Bodies Cancelled Destiney Cells Cancelled Acanthocytes (Spur) Cancelled Rouleaux Cancelled Keratocytes Cancelled Hematology Comments Cancelled PT INR APTT Sodium 136 Potassium 5.2 H Chloride 101 Carbon Dioxide 25.5 Anion Gap 10 BUN 46 H Creatinine 6.85 H Estimated GFR 8 L Random Glucose 93 Calcium 7.8 L Calcium Adj for Albumin Albumin Blood Type A Positive Blood Type Recheck Required Antibody Screen Negative 12/06/18 12/06/18 12/07/18 11:20 11:20 04:42 CBC w Diff WBC 5.5 Corrected WBC RBC 3.03 L Hgb 9.8 L Hct 28.2 L MCV 93.1 MCH 32.3 MCHC 34.7 RDW 15.6 Plt Count 121 L MPV 7.7 Prelim Diff (Auto) Immature Gran % (Auto) Neut % (Auto) Lymph % (Auto) [place] % (Auto) Eos % (Auto) Baso % (Auto) Immature Gran # (Auto) Neut # (Auto) Lymph # (Auto) [place] # (Auto) Eos # (Auto) Baso # (Auto) WBC Differential Diff Scan Seg Neuts % (Manual) Band Neuts % (Manual) Lymphocytes % (Manual) Atypical Lymphs % (Man) Monocytes % (Manual) Eosinophils % (Manual) Basophils % (Manual) Metamyelocytes % (Man) Myelocytes % (Man) Promyelocytes % (Man) Blast Cells % (Manual) Plasma Cell % (Manual) Other Cells % Abs Neuts (Manual) Nucleated RBCs/100 WBC Differential Comment Hypersegmented Neuts Smudge Cells Toxic Granulation Toxic Vacuolation Dohle Bodies Platelet Estimate Platelet Morphology RBC Morphology Dimorphic RBCs Polychromasia Basophilic Stippling Spherocytes Pappenheimer Bodies Sickle Cells Target Cells Tear Drop Cells Ovalocytes Stomatocytes Helmet Cells Castañeda-Dendron Bodies Destiney Cells Acanthocytes (Spur) Rouleaux Keratocytes Hematology Comments PT 11.3 INR 1.1 APTT 29.9 Sodium Potassium Chloride Carbon Dioxide Anion Gap BUN Creatinine Estimated GFR Random Glucose Calcium Calcium Adj for Albumin Albumin Blood Type Blood Type Recheck Antibody Screen 01/28/18 04:42 CBC w Diff WBC Corrected WBC RBC Hgb Hct MCV MCH MCHC RDW Plt Count MPV Prelim Diff (Auto) Immature Gran % (Auto) Neut % (Auto) Lymph % (Auto) [place] % (Auto) Eos % (Auto) Baso % (Auto) Immature Gran # (Auto) Neut # (Auto) Lymph # (Auto) [place] # (Auto) Eos # (Auto) Baso # (Auto) WBC Differential Diff Scan Seg Neuts % (Manual) Band Neuts % (Manual) Lymphocytes % (Manual) Atypical Lymphs % (Man) Monocytes % (Manual) Eosinophils % (Manual) Basophils % (Manual) Metamyelocytes % (Man) Myelocytes % (Man) Promyelocytes % (Man) Blast Cells % (Manual) Plasma Cell % (Manual) Other Cells % Abs Neuts (Manual) Nucleated RBCs/100 WBC Differential Comment Hypersegmented Neuts Smudge Cells Toxic Granulation Toxic Vacuolation Dohle Bodies Platelet Estimate Platelet Morphology RBC Morphology Dimorphic RBCs Polychromasia Basophilic Stippling Spherocytes Pappenheimer Bodies Sickle Cells Target Cells Tear Drop Cells Ovalocytes Stomatocytes Helmet Cells Castañeda-Dendron Bodies Destiney Cells Acanthocytes (Spur) Rouleaux Keratocytes Hematology Comments PT INR APTT Sodium 135 L Potassium 4.7 Chloride 97 L Carbon Dioxide 28.5 Anion Gap 10 BUN 55 H Creatinine 8.40 H Estimated GFR 6 L Random Glucose 91 Calcium 7.2 L* Calcium Adj for Albumin 7.8 L Albumin 3.2 L Blood Type Blood Type Recheck Antibody Screen Assessment and Plan - Assessment (1) ESRD (end stage renal disease) on dialysis Code(s): N18.6 - End stage renal disease; Z99.2 - Dependence on renal dialysis Status: Acute - Plan 77//M s/p L UE Access revision doing well pain controlled No hand pain Plan Pt clear for d/c post HD Discussed and reviewed post op care and management w/ pt Arranged out pt f/u in 3W Nolvia Oakley NP Care Team [facility] [phone] Discharge Planning: today post HD
[2018-01-28] MEDS: Senna/Docusate Sodium 8.6/50 MG Tablet PO SCH (08:17)
--- NOTE | 2018-01-28 08:32 | P.DS ---
Discharge Summary - Admission Date 01/27/18 13:10 - Admission Diagnosis (1) ESRD (end stage renal disease) on dialysis - Discharge Date 01/28/18 - Discharge Diagnosis (1) Arteriovenous fistula Status: Acute - Summary Brief History from admission: 77 yo male with ESRD s/p L UE AVF (1st stage brachiobasilic AVF) 11/11/17. Presents for 2nd stage. Gets HD MWF and jose roberto HD yesterday, Procedure: L UE access revision (transposition of brachiobasilic AVF) Significant Findings: GENERAL: Afebrile 77/M who is alert in NAD/GCS15/Speech clear SKIN: Warm and dry Incision to L UE intact w/ surgical glue/ ecchymosis present near incision site/ mild swelling/No drainage + thrill near AVF Palpable L radial pulse noted B UE 5/5 B UE warm w/ motor intact Abnormal Lab Results 01/27/18 01/27/18 01/27/18 10:30 10:30 10:30 CBC w Diff Cancelled WBC Cancelled Corrected WBC Cancelled RBC Cancelled Hgb Cancelled Hct Cancelled MCV Cancelled MCH Cancelled MCHC Cancelled RDW Cancelled Plt Count Cancelled MPV Cancelled Prelim Diff (Auto) Cancelled Immature Gran % (Auto) Cancelled Neut % (Auto) Cancelled Lymph % (Auto) Cancelled [place] % (Auto) Cancelled Eos % (Auto) Cancelled Baso % (Auto) Cancelled Immature Gran # (Auto) Cancelled Neut # (Auto) Cancelled Lymph # (Auto) Cancelled [place] # (Auto) Cancelled Eos # (Auto) Cancelled Baso # (Auto) Cancelled WBC Differential Cancelled Diff Scan Cancelled Seg Neuts % (Manual) Cancelled Band Neuts % (Manual) Cancelled Lymphocytes % (Manual) Cancelled Atypical Lymphs % (Man) Cancelled Monocytes % (Manual) Cancelled Eosinophils % (Manual) Cancelled Basophils % (Manual) Cancelled Metamyelocytes % (Man) Cancelled Myelocytes % (Man) Cancelled Promyelocytes % (Man) Cancelled Blast Cells % (Manual) Cancelled Plasma Cell % (Manual) Cancelled Other Cells % Cancelled Abs Neuts (Manual) Cancelled Nucleated RBCs/100 WBC Cancelled Differential Comment Cancelled Hypersegmented Neuts Cancelled Smudge Cells Cancelled Toxic Granulation Cancelled Toxic Vacuolation Cancelled Dohle Bodies Cancelled Platelet Estimate Cancelled Platelet Morphology Cancelled RBC Morphology Cancelled Dimorphic RBCs Cancelled Polychromasia Cancelled Basophilic Stippling Cancelled Spherocytes Cancelled Pappenheimer Bodies Cancelled Sickle Cells Cancelled Target Cells Cancelled Tear Drop Cells Cancelled Ovalocytes Cancelled Stomatocytes Cancelled Helmet Cells Cancelled Castañeda-[place] Bodies Cancelled [place] Cells Cancelled Acanthocytes (Spur) Cancelled Rouleaux Cancelled Keratocytes Cancelled Hematology Comments Cancelled PT INR APTT Sodium 136 Potassium 5.2 H Chloride 101 Carbon Dioxide 25.5 Anion Gap 10 BUN 46 H Creatinine 6.85 H Estimated GFR 8 L Random Glucose 93 Calcium 7.8 L Calcium Adj for Albumin Albumin Blood Type A Positive Blood Type Recheck Required Antibody Screen Negative 01/27/18 01/27/18 01/28/18 11:20 11:20 04:42 CBC w Diff WBC 5.5 Corrected WBC RBC 3.03 L Hgb 9.8 L Hct 28.2 L MCV 93.1 MCH 32.3 MCHC 34.7 RDW 15.6 Plt Count 121 L MPV 7.7 Prelim Diff (Auto) Immature Gran % (Auto) Neut % (Auto) Lymph % (Auto) [place] % (Auto) Eos % (Auto) Baso % (Auto) Immature Gran # (Auto) Neut # (Auto) Lymph # (Auto) [place] # (Auto) Eos # (Auto) Baso # (Auto) WBC Differential Diff Scan Seg Neuts % (Manual) Band Neuts % (Manual) Lymphocytes % (Manual) Atypical Lymphs % (Man) Monocytes % (Manual) Eosinophils % (Manual) Basophils % (Manual) Metamyelocytes % (Man) Myelocytes % (Man) Promyelocytes % (Man) Blast Cells % (Manual) Plasma Cell % (Manual) Other Cells % Abs Neuts (Manual) Nucleated RBCs/100 WBC Differential Comment Hypersegmented Neuts Smudge Cells Toxic Granulation Toxic Vacuolation Dohle Bodies Platelet Estimate Platelet Morphology RBC Morphology Dimorphic RBCs Polychromasia Basophilic Stippling Spherocytes Pappenheimer Bodies Sickle Cells Target Cells Tear Drop Cells Ovalocytes Stomatocytes Helmet Cells Castañeda-[place] Bodies Destiney Cells Acanthocytes (Spur) Rouleaux Keratocytes Hematology Comments PT 11.3 INR 1.1 APTT 29.9 Sodium Potassium Chloride Carbon Dioxide Anion Gap BUN Creatinine Estimated GFR Random Glucose Calcium Calcium Adj for Albumin Albumin Blood Type Blood Type Recheck Antibody Screen 01/28/18 04:42 CBC w Diff WBC Corrected WBC RBC Hgb Hct MCV MCH MCHC RDW Plt Count MPV Prelim Diff (Auto) Immature Gran % (Auto) Neut % (Auto) Lymph % (Auto) [place] % (Auto) Eos % (Auto) Baso % (Auto) Immature Gran # (Auto) Neut # (Auto) Lymph # (Auto) [place] # (Auto) Eos # (Auto) Baso # (Auto) WBC Differential Diff Scan Seg Neuts % (Manual) Band Neuts % (Manual) Lymphocytes % (Manual) Atypical Lymphs % (Man) Monocytes % (Manual) Eosinophils % (Manual) Basophils % (Manual) Metamyelocytes % (Man) Myelocytes % (Man) Promyelocytes % (Man) Blast Cells % (Manual) Plasma Cell % (Manual) Other Cells % Abs Neuts (Manual) Nucleated RBCs/100 WBC Differential Comment Hypersegmented Neuts Smudge Cells Toxic Granulation Toxic Vacuolation Dohle Bodies Platelet Estimate Platelet Morphology RBC Morphology Dimorphic RBCs Polychromasia Basophilic Stippling Spherocytes Pappenheimer Bodies Sickle Cells Target Cells Tear Drop Cells Ovalocytes Stomatocytes Helmet Cells Castañeda-[place] Bodies [place] Cells Acanthocytes (Spur) Rouleaux Keratocytes Hematology Comments PT INR APTT Sodium 135 L Potassium 4.7 Chloride 97 L Carbon Dioxide 28.5 Anion Gap 10 BUN 55 H Creatinine 8.40 H Estimated GFR 6 L Random Glucose 91 Calcium 7.2 L* Calcium Adj for Albumin 7.8 L Albumin 3.2 L Blood Type Blood Type Recheck Antibody Screen Hospital Course: 77 yo male with ESRD s/p L UE AVF (1st stage brachiobasilic AVF) 11/11/17. Presented for 2nd stage. Pt s/p L UE access revision (transposition of brachiobasilic AVF) POD 1 Pt alert in NAD, speech clear Mild incisional pain with expected L UE swelling Reports no hand pain Pt looks good and is clear for d/c post HD Arranged out pt f/u E - [place] reviewed no recent activity- Rx pain medication for out pt pain management - Discharge Instructions Any questions or concerns: Call [facility] [phone] Discharge Plan - Discharge Disposition Patient Disposition: 01 Discharge Home - Discharge Condition Condition: Good - Discharge Order Discharge Orders: Discharge Order (Routine); Ordered 01/28/18 Ordered By: Nolvia Oakley - Physicians Team Primary Care Provider: Domi Arana Attending Provider: Robel Brooks Other Providers: Karen Benítez MD - Rxs /Orders / Referrals /Forms Prescriptions: New hydrocodone-acetaminophen [[facility]] 5-325 mg Tablet 1 tab PO Q4-6H Qty: 20 RF: 0 Continue atorvastatin 40 mg Tablet 40 mg PO DAILY calcium acetate 667 mg Tablet 1,334 mg PO TIDAC cholecalciferol (vitamin D3) [Dialyvite Vitamin D] 5,000 unit Capsule 50,000 unit PO 2XWEEK doxazosin 2 mg Tablet 2 mg PO HS escitalopram oxalate [Lexapro] 20 mg Tablet 20 mg PO DAILY PRN (Reason: Anxiety) losartan 100 mg Tablet 100 mg PO DAILY minoxidil 2.5 mg Tablet 5 mg PO DAILY nifedipine 30 mg Tablet Extended Release 30 mg PO BID zolpidem [Ambien] 10 mg Tablet 10 mg PO PRN PRN (Reason: Insomnia) Referrals: Robel Brooks MD [Physician] - See Instructions (Your post op follow up is scheduled on 02/18/18 at 9:15) Domi Arana MD [Primary Care Provider] - See Instructions - Discharge Instructions Patient Printed Instructions: Dialysis Diet (GEN), Arteriovenous Fistula Creation for Hemodialysis (DC), End Stage Kidney Disease (GEN) - Post Discharge Care Plan Care Plan Goals: Discharge Care Plan Goals After Vascular Surgery Contact: Please call [phone] if you have any problems or have questions regarding your hospitalization. Directions to Meet Your Goals: 1. Diet: * You may resume a regular diet as you were eating at home before your admission. 2. Activity: * Increase your activity level gradually. * Keep surgical extremities elevated when at rest. This will help limit the swelling, bruising and discomfort normally present after surgery. * Walking is a good form of light exercise. Go for a walk at least 3 times per day. * No heavy lifting (lifting over 10 pounds) for at least 4 weeks from surgery. * Check with your surgeon to ensure when you are cleared for heavy lifting and full-intensity exercising. * Your strength will gradually improve. * No driving or operating motorized vehicles while on prescription pain medications. * No swimming until wounds fully healed. * Return to work when cleared by MD/ROLANDO/BALJIT. 3. Bathing: Shower daily. * Gently let soap and water run over your incision and pat dry. Do not scrub the incision/wound. * Don't soak in a bath or submerge your incision in water until your incision is healed and evaluated by your physician at follow-up (usually two weeks). 4. Wound Care: INCISION SITE CARE INSTRUCTIONS: * You may leave your incision open to air. * Keep your incision clean and dry, unless showering. See above. * Moisture near the incision will cause the wound to open. * No lotions, creams, ointments, or powders on incisions until they are well- healed. * If you have glue over the incision(s), allow it to fall off naturally in 1-3 weeks * If present, raudel/sutures will be removed 2-3 weeks after surgery during your follow-up clinic visit. * If present, change dressing/bandage when soaked/soiled as needed. * Observe wound daily, checking for signs and symptoms of infection including: foul odor, drainage from the incision, increased redness, increased pain at incision, or increased swelling. 5. Pain Control: Expect post-operative pain for 1-4 weeks after surgery. Your pain will improve gradually. * You may have been provided with a prescription for pain medication. Please take as directed, and be aware of side effects such as drowsiness, constipation and mild stomach discomfort. Pain pills on an empty stomach can cause nausea , so eat a small amount of food, such as crackers, when taking these pills. * Take [id number] stool softeners (Colace or Senna) with your prescribed pain medication. * Acetaminophen (500mg every 6 hours) or Ibuprofen (400mg every 6 hours) may be used in conjunction with narcotics to relieve pain. DO NOT take more than 4 grams (4000mg) of Tylenol in one day, as this can harm your liver. DO NOT take ibuprofen IF: you have an allergy to non-steroidal anti-inflammatory medications, you are taking Coumadin, you have been told you have kidney problems, or you have a history of gastrointestinal bleeding or ulcers. DO NOT take more than 3.2 grams (3200mg) of ibuprofen in one day. * You may also find relief from using heat packs or pads or ice packs. 6. Bowel Regimen for Constipation: * People who undergo surgery are likely to develop post-operative constipation. Exposure to narcotics and changes in diet, fluid intake, and physical activity are known contributors to constipation. We recommend routine stool softeners and/ or laxatives after surgery for most patients. Start by taking one medication. You can increase as directed to relieve constipation. Stop taking these medications if you develop diarrhea. These medications are available over-the- counter and do not require a prescription: * Colace is a stool softener. We recommend starting at 100mg orally twice per day as needed for soft stools and increase to a maximum of 200mg twice daily as needed. * Senna is a laxative that works by keeping water in the intestine to help stool move along the intestinal tract. Take 1 tablet daily as needed for soft stool and increase to a maximum of 2 tablets twice daily as needed. Take Senna with two full glasses of water each time. * Miralax, Dulcolax and Milk of Magnesia are other amdz-xuk-phhbegd laxatives that may be used as needed for post-operative constipation. * Drink 6-8 glasses of water per day. * Consume 15-30g of fiber per day: * Metamucil powder, 1-2 tablespoons 1-2 times/day OR Benefiber powder, 2 tablespoons 4 times/day. * Avoid straining. 7. Follow-Up: Do Not miss your follow-up appointment. Keep up with all your appointments and yearly check ups If you have any of the following symptoms please call [phone] immediately: Excessive swelling of the affected extremity Sudden onset of severe or unusual pain in the affected extremity Pain that gets worse or is not relieved by medication Warmth, redness, or swelling in the skin around the wound Foul drainage from incision Extensive bruising or discoloration Wound that opens up or pulls apart Fever above 101.5F or shaking chills Nausea or vomiting Severe diarrhea or severe constipation Dizziness or fainting Chest pain, shortness of breath, or increased work of breathing Weight gain >10 lbs over 3-4 days Inability to urinate for more than 6 hours Cloudy or foul smelling urine Urge to urinate more often than usual Symptoms to Report to Your Doctor: Temperature 101F or higher Pain uncontrolled by medication Drainage or foul odor from incision Extensive bruising or discoloration Chest pain Shortness of breath Nausea, vomiting or dizziness Call 911: Call 911 right away if you have: Sudden onset of chest pain that is not relieved by medications Shortness of breath
[2018-01-28] MEDS ORDERED: Minoxidil 2.5 MG Tablet PO SCH (09:00)
[2018-01-28] MEDS ORDERED: Heparin - SQ 10,000 UNITS/ML Vial SQ SCH (13:00)
[2018-01-28 14:06] VITALS: BP 142/64; PULSE 77; TEMP 97.9; O2SAT 90
== END 2018-01-28 14:09 | disposition home or self-care (01) ==
LOC: HSDI 09:24 → HSDC 09:24 → N07 15:18
PROVIDERS: ADMIT Surgery; ATTEND Surgery